=== PATIENT | male | born 1950 | race Two or more races ===

== ENCOUNTER 2024-12-31 11:22 | Emergency (ER) | payer MEDICAID, SELFPAY ==
[2024-12-31 11:23] VITALS: BMI 27.8
[2024-12-31 12:10] VITALS: BP 147/73; PULSE 82; RESP 18; TEMP 36.7; O2SAT 99
--- NOTE | 2024-12-31 12:13 | XR_ITS ---
Examination: Hand, left 3 views Technique: Hand AP, oblique, lateral 3 views Date and time of exam: December 31, 2024, 1230 hours INDICATIONS: Laceration to the hand today with third digit pain. FINDINGS: No acute fracture No dislocation No foreign body Soft tissue swelling about the third digit IMPRESSION: No acute fracture or dislocation
--- NOTE | 2024-12-31 13:32 | EDNOTE_ITS ---
Upper Extremity Injury RME/HPI General Chief Complaint: Extremity Injury, Upper Stated Complaint: finger laceration Time Seen by Provider: 12/31/24 11:42 Arrival date/time: 12/31/24 11:22 74-year-old male presents to the emergency department of complaint of laceration left middle finger Limitations: no limitations Related Data Previous Rx's ?Medication ?Instructions ?Recorded cephalexin 500 mg capsule 500 mg PO BID 10 days #20 ca ps 12/31/24 ibuprofen 600 mg tablet 600 mg PO Q6H #30 tabs 12/31 Allergies Allergy/AdvReac Type Severity Reaction Status Date / Time No Known Allergies Allergy Verified 12/31/24 11:25 Review of Systems Review of Systems Systems Reviewed: All systems reviewed, normal except as documented Constitutional Constitutional: Reports system reviewed and no additional complaints, except as documented, Denies fever(s) and Denies headache(s) Eyes Eyes: Reports system reviewed and no additional complaints, except as documented and Denies blurry vision ENT Ears, Nose, Mouth, and Throat: Reports system reviewed and no additional complaints, except as documented, Denies headache(s), Denies nasal congestion and Denies nasal discharge Cardiovascular Cardiovascular: Reports system reviewed and no additional complaints, except as documented, Denies chest pain and Denies dyspnea Respiratory Respiratory: Reports system reviewed and no additional complaints, except as documented, Denies chest congestion, Denies cough and Denies dyspnea Gastrointestinal Gastrointestinal: Reports system reviewed and no additional complaints, except as documented and Denies abdominal pain Integumentary/Breasts Skin/Breast: Reports system reviewed and no additional complaints, except as documented, Denies rash and Reports wounds (Laceration left middle finger) Neurologic Neurologic: Reports system reviewed and no additional complaints, except as documented, Reports as per HPI and Denies headache(s) Past Medical History Social History SMOKING STATUS: Never smoker ED Exam General Limitations: Present no limitations General appearance: Present alert and in no apparent distress Head Head exam: Present atraumatic Eye Eye exam: Present normal appearance, PERRL and EOMI ENT ENT exam: Present normal exam, normal oropharynx and mucous membranes moist Neck Neck exam: Present normal inspection, full ROM and trachea midline Chest Chest inspection: Present normal inspection and symmetric chest wall rise Respiratory Respiratory exam: Present normal lung sounds bilaterally Cardiovascular Cardiovascular exam: Present regular rate, normal rhythm and normal heart sounds Abdominal Exam Abdominal exam: Present soft and normal bowel sounds Extremities Exam Extremities exam: Present full ROM, tenderness and normal capillary refill; Absent joint swelling Expanded Upper Extremity Exam Hand L/R back image: 2 1. 3 cm no evidence of tendon or ligamentous injury full range of motion 2. 4 cm no evidence of tendon or ligamentous injury full range of motion Back Exam Back exam: Present normal inspection and full ROM Neurological Exam Neurological exam: Present alert, oriented X3 and CN II-XII intact Psychiatric Psychiatric exam: Present normal affect and normal mood Skin Skin exam: Present warm, dry and other (Laceration left hand) Course Quality Measures none Orders Category Date Time Status Set Up Suture Tray STAT Care 12/31/24 12:13 Completed Wound Care NOW Care 12/31/24 12:13 Completed XR hand comp LT min 3V Stat Exams 12/31/24 12:13 Completed Lidocaine 1% 20 ml [Xylocaine 1% 20 ML] Med 12/31/24 12:13 Discontinued 20 ml INFL X1 ONE TET,DIP/PERT AC (Adult)-Tdap [Boostrix Adult (Tdap) Med 12/31/24 12:13 Discontinued Vacc] 0.5 ml IMI .ONCE ONE Vital Signs Vital signs: Vital Signs Temperature 98.1 F 12/31/24 12:10 Pulse Rate 82 12/31/24 12:10 Respiratory Rate 18 12/31/24 12:10 Blood Pressure 147/73 H 12/31/24 12:10 Pulse Oximetry (%) 99 12/31/24 12:10 Oxygen Delivery Method Room Air 12/31/24 12:10 O2 saturation 99% room air with normal limits PROCEDURES: Laceration Laceration 1: Site: hand Side (If applicable): left Size (cm): 4 Description: linear Depth: simple, single layer Local Anesthetic: lidocaine 1% Amount of anesthesia used (mL): 10 Skin layer closed with: nylon Suture size (cm): 4-0 Number of sutures: 9 Technique: simple, interrupted Extremity Injury Patient data External records reviewed:: [facility] previous records Clinical information provided by:: patient Social determinants that could affect healthcare access:: none Patient has the following chronic illnesses:: See history How is presenting disease/condition affected by chronic disease/condition?: u neffected by Evaluation data The following diagnostics were reviewed and interpreted by me:: radiology exam(s) Lab and/or radiology exams considered but not ordered:: Radiology obtained Interpretation Summary: Reviewed by me Medications / Prescriptions Medications or Prescriptions considered but not ordered:: Given Medication administrations:: Medication Administration History Discontinued Medications Diphtheria/Tetanus/Acell Pertussis (Diphth,Pertuss(Acell),Tet Vac 0.5 Ml Syr- Adult) 0.5 ml IMi .ONCE ONE Stop: 12/31/24 12:14 Last Admin: 12/31/24 13:37 Dose: 0.5 ml Documented By: Lidocaine HCl (Lidocaine Hcl 1% 20 Ml Vial) 20 ml INFL X1 ONE Stop: 12/31/24 12:14 Last Admin: 12/31/24 13:37 Dose: 20 ml Documented By: Given Consultations Consultation(s) initiated? (list below): No Diagnosis Upper Extremity Injury Differential Diagnosis: other Most likely diagnosis given after review of the tests above:: Laceration Admission Indicated Admission indicated?: not indicated Admission Request Was there a request for admission?: No Disposition Plan Disposition Plan: Discharge Discharge Attestation Discharge Attestation: The patient and all family members were given an opportunity to ask questions and understood the discharge instructions. Discharge instructions specifically effects, indications for sooner follow up or return to the emergency department, and the expected course of current diagnosis. Patient condition: Stable Discharge Plan Plan Patient Disposition: HOME (Self Care) Discharge Disposition comment: Stable Prescriptions/Referrals Prescriptions/Med Rec: New cephalexin 500 mg capsule 500 mg PO BID 10 Days Qty: 20 0RF ibuprofen 600 mg tablet 600 mg PO Q6H Qty: 30 0RF Referrals: No Primary/Family,Physician [Primary Care Provider] - 01/01/25 Problem List Clinical Impression: Laceration of finger of left hand Patient/Caregiver Discharge Instructions Education Materials: ED Laceration: Skin Adhesive Additional Instructions: Please follow up with your primary care doctor in the next 24-48hrs for any worsening symptoms return here immediately Please have suture removed in 10 to 14 days Please take antibiotics as prescribed Print Language: Jamaican Stand Alone Forms: [employer] Award Info., Patient Portal Info Letter Vaccines Vaccines Given During Stay: TDaP PA/CONSULTING PSYCHIATRIST Supervising Physician PA/CONSULTING PSYCHIATRIST Supervising Physician: Dr. Marion
[2024-12-31] MEDS: DIPHTH,PERTUSS(ACELL),TET VAC 0.5 ML SYR- ADULT IMi (13:37)
[2024-12-31] MEDS: LIDOCAINE HCL 1% 20 ML VIAL INFL (13:37)
== END 2024-12-31 16:36 | disposition home or self-care (01) ==
PROVIDERS: Emergency Provider Nurse Practitioner Primary Care
DX: S61.213A Laceration without foreign body of left middle finger without damage to nail, initial encounter (principal); Z23 Encounter for immunization; W45.8XXA Other foreign body or object entering through skin, initial encounter
CPT/HCPCS: 12002; 73130; 90471; 90715; 99282; J3490

== ENCOUNTER 2025-02-25 06:15 | Inpatient (IN) | payer MEDICAID, SELFPAY ==
[2025-02-25] VITALS (13 sets, daily range): BP systolic 130–190; BP diastolic 74–109; PULSE 96–119; RESP 14–99; TEMP 36.9–37.9; O2SAT 97–100; BMI 26.5
--- NOTE | 2025-02-25 06:28 | EKG_ITS ---
[facility] (Formerly [facility]) Test Date: 2025-02-25 Pat Name: JOHAN BLEVINS Department: Room: - Gender: Male Live In Housekeeper: : 1950 Requested By: ED Temporary Provider Order Number: [id number] Reading MD: ED Temporary Provider Measurements Intervals [place] Rate: 99 P: 46 NM: 155 QRS: -1 QRSD: 73 T: 66 QT: 309 QTc: 396 Interpretive Statements SINUS RHYTHM NONSPECIFIC T-WAVE ABNORMALITY Compared to ECG 02/25/2025 06:36:17 Sinus tachycardia no longer present T-wave abnormality still present /store/S0/[id number].pdf
--- NOTE | 2025-02-25 06:28 | EKG_ITS ---
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
--- NOTE | 2025-02-25 06:28 | XR_ITS ---
EXAMINATION: PA lateral chest 2 views TECHNIQUE: Upright PA lateral chest 2 views Date and time: February 25, 2025, 0652 hours INDICATIONS: Upper chest pain today FINDINGS: Normal heart size Lungs are clear. Moderate thoracic spondylosis IMPRESSION: No active disease
--- NOTE | 2025-02-25 06:46 | XR_ITS ---
Examination: CTA chest with intravenous contrast 2-D reconstructions 3-D reconstructions, vascular Date and time of exam: February 25, 2025, 0910 hours INDICATIONS: Chest pain radiating to the back CTDI: vol (mGy) 12 DLP: (mGycm) 282 Technique: Multiple axial sections of the thorax have been obtained. 3 mm slice thickness, from below the hemidiaphragms to above the apices of the lungs. Mediastinal and lung density settings have been obtained. 2-D sagittal and coronal reconstructions. 3-D angiographic renderings, 3-D volume renderings, 3D post processing, vascular maximum intensity projections obtained. Contrast administered is 70 cc Isovue 300 intravenous Low dose protocols were performed. One or more of the following dose reduction techniques were used; automated exposure control, adjustment of the mA and/or KV according to patient size, use of iterative reconstruction technique. Findings: No thoracic aortic aneurysmal dilatation or dissection Pulmonary artery segments are not enlarged Positive for small pulmonary artery emboli in right lower lobe pulmonary artery branches, for instance axial image 87 and 8889 and small pulmonary artery emboli left lower lobe pulmonary artery branches, for instance axial image 92 No pneumonia or pulmonary edema Suspicious for 17 mm right lobe liver lesion image 156 No pancreatic mass Kidneys partially visualized no hydronephrosis IMPRESSION: Positive for small bilateral lower lobe pulmonary artery emboli
--- NOTE | 2025-02-25 06:48 | EDNOTE_ITS ---
ED Chest Pain RME/HPI General Chief Complaint: Chest Pain Stated Complaint: CHEST PAIN Time Seen by Provider: 02/25/25 06:31 Arrival date/time: 02/25/25 06:15 Limitations: no limitations RME / HPI MD complaint: chest pain RME / HPI narrative: 74-year-old male coming in for evaluation of chest pain that started yesterday evening to central chest radiating towards back and neck that has worsened overnight. This is accompanied by nausea, dry mouth feeling, sweating, mild shortness of breath. Denies any vomiting, diarrhea, fever, cough, other acute symptoms at this time. Does have past medical history significant for diabetes for which he takes insulin. Related Data Previous Rx's ?Medication ?Instructions ?Recorded ibuprofen 600 mg tablet 600 mg PO Q6H #30 tabs 12/31 Allergies Allergy/AdvReac Type Severity Reaction Status Date / Time No Known Allergies Allergy Verified 02/25/25 06:25 Review of Systems Review of Systems Systems Reviewed: All systems reviewed, normal except as documented Past Medical History Past Medical History CARDIAC: Positive Hypertension ENDOCRINE: Positive Diabetes Mellitus Type 2 Social History SMOKING STATUS: Never smoker Past Medical History Comments PMH COMMENT: Diabetes, insulin-dependent ED Exam Narrative Physical exam: Constitutional: Awake, alert, elderly, nontoxic, uncomfortable. HEENT: Normocephalic, atraumatic, extraocular movements intact. Neck: Supple CV: tachycardic rate and regular rhythm, no murmurs/rubs/gallops heard. Lungs: Clear to auscultation BL, no respiratory distress. Abd: Soft, nondistended, mild tenderness to epigastric region, no rebound or guarding noted. Neuro: AAOx3, no acute neuro deficit noted. Skin: Warm, dry, intact General Limitations: Present no limitations Course Course Course Narrative: Patient's chest x-ray is unremarkable. Does have significant leukocytosis of 24.4, procalcitonin is elevated at 5.03, lactate mildly elevated at 2.1, and magnesium low at 1.2. BUN/creat elevated at 25/1.8. Patient was tachycardic on arrival and was given initial liter of fluids. Additional IVFs ordered as well as IV abx, BCx's, and vbg. CTA is pending still. 1110h: CT angio is back revealing small bilateral pulmonary emboli. Dose of lovenox ordered. Spoke with team a regarding patient for admission. They will be down to see patient. Quality Measures none Orders Category Date Time Status Bedside Influenza A&B Antigen Test NOW Care 02/25/25 07:32 Completed Bedside STREP Test NOW Care 02/25/25 07:[address] Screening NOW Care 02/25/25 06:46 Active EKG (ED ONLY) *Do not use* NOW Care 02/25/25 06:28 Completed EKG (ED ONLY) *Do not use* NOW Care 02/25/25 06:28 Completed Insert IV NOW Care 02/25/25 06:[address] angio chest Stat Exams 02/25/25 06:46 Completed EKG (ED Only) Stat Exams 02/25/25 06:28 Draft EKG (ED Only) Stat Exams 02/25/25 06:28 Ordered XR chest 2V Stat Exams 02/25/25 06:28 Completed B-Type Natriuretic Peptide Stat Lab 02/25/25 06:51 Completed Blood Culture (Lab) Stat Lab 02/25/25 09:09 Received CBC Stat Lab 02/25/25 06:51 Completed Comprehensive Metabolic Panel Stat Lab 02/25/25 06:51 Completed Influenza A & B Rapid Panel Stat Lab 02/25/25 07:32 Ordered Lactate (Lactic Acid) Stat Lab 02/25/25 06:51 Completed Lactic Acid, 3 HR Stat Lab 02/25/25 10:39 Completed Magnesium Stat Lab 02/25/25 06:51 Completed Partial Thromboplastin Time Stat Lab 02/25/25 06:51 Completed Procalcitonin Stat Lab 02/25/25 06:51 Completed Prothrombin Time with INR Stat Lab 02/25/25 06:51 Completed Strep A Rapid Stat Lab 02/25/25 07:32 Ordered Troponin I Stat Lab 02/25/25 06:51 Completed Urinalysis, C/S if Indicated Stat Lab 02/25/25 11:11 Ordered VBG [Venous Blood Gas] Stat Lab 02/25/25 09:17 Completed Acetaminophen Ivpb [Ofirmev Inj] Med 02/25/25 09:46 Discontinued 1,000 mg in 100 ml IV NOW Azithromycin Inj [Zithromax Inj] 500 mg Med 02/25/25 08:20 Discontinued Sodium Chloride 0.9% 250 ml [Ns] 250 ml IV NOW Enoxaparin [Lovenox] Med 02/25/25 11:12 Discontinued 68 mg SC NOW ONE Magnesium Sulfate 2 GM Ivpb [Magnesium Sulfate Ivpb] Med 02/25/25 08:24 Discontinued 2 gm in 50 ml IV X1 Ringers Lactated 1000 ml [Lactated Ringers] 1,000 ml Med 02/25/25 06:47 Discontinued IV 999 mls/hr Ringers Lactated 1000 ml [Lactated Ringers] 1,000 ml Med 02/25/25 08:19 Discontinued IV 999 mls/hr cefTRIAXone/D5w 1gm IV premix [Rocephin/D5w 1gm IV Med 02/25/25 08:19 Discontinued premix] 1 gm in 50 ml IV X1 Vital Signs Vital signs: Vital Signs Temperature 99.6 F 02/25/25 06:40 Pulse Rate 119 H 02/25/25 06:40 Respiratory Rate 19 02/25/25 06:40 Blood Pressure 130/74 02/25/25 06:40 Pulse Oximetry (%) 98 02/25/25 06:40 Oxygen Delivery Method Room Air 02/25/25 06:40 Pulse ox is 98% on room air which is adequate. Chest Pain MDM Narrative MDM Narrative:: 74-year-old male who came in for evaluation of chest pain that onset yesterday with nausea and mild shortness of breath. Was noted to be tachycardic on arrival. Workup ordered including labs and imaging including CT angio to rule out PE. Was noted to have significant abnormalities on labs including white blood cell count of 24, procalcitonin of 5, and CT angio revealing bilateral sm all pulmonary emboli. Was treated empirically for sepsis given the tachycardia, leukocytosis, and elevated lactate. Received IV fluids as well as IV antibiotics and blood cultures were drawn. Spoke with hospitalist team a regarding patient for admission. Patient data External records reviewed:: [facility] previous records Clinical information provided by:: patient Social determinants that could affect healthcare access:: none Patient has the following chronic illnesses:: Diabetes, hypertension How is presenting disease/condition affected by chronic disease/condition?: uneffected by Evaluation data The following diagnostics were reviewed and interpreted by me:: lab results and radiology exam(s) Lab and/or radiology exams considered but not ordered:: none Interpretation Summary: as above Medications / Prescriptions Medications or Prescriptions considered but not ordered:: none Medication administrations:: Medication Administration History Discontinued Medications Enoxaparin Sodium (Enoxaparin Sod Inj 100 Mg/Ml Syringe) 68 mg 1 mg/kg (68 mg) SC NOW ONE Stop: 02/25/25 11:13 Lactated Ringer's (Lactated Ringers) 1,000 mls @ 999 mls/hr IV .Q1H1M ONE Stop: 02/25/25 07:47 Last Infusion: 02/25/25 08:21 Dose: Infused Documented By: Admin: 02/25/25 06:55 Dose: 999 mls/hr Documented By: SATINDER Lactated Ringer's (Lactated Ringers) 1,000 mls @ 999 mls/hr IV .Q1H1M ONE Stop: 02/25/25 09:19 Last Infusion: 02/25/25 10:58 Dose: Infused Documented By: Admin: 02/25/25 09:26 Dose: 999 mls/hr Documented By: GM Ceftriaxone Sodium/Dextrose (Rocephin/D5w 1gm Iv Premix) 1 gm in 50 mls @ 100 mls/hr IV X1 ONE Stop: 02/25/25 08:48 Last Infusion: 02/25/25 09:55 Dose: Infused Documented By: Admin: 02/25/25 09:24 Dose: 100 mls/hr Documented By: SUE Azithromycin 500 mg/ Sodium (Chloride) 250 mls @ 250 mls/hr IV NOW ONE Stop: 02/25/25 09:19 Last Admin: 02/25/25 10:05 Dose: 250 mls/hr Documented By: DOTTY Magnesium Sulfate (Magnesium Sulfate Ivpb) 2 gm in 50 mls @ 25 mls/hr IV X1 ONE Stop: 02/25/25 10:23 Last Admin: 02/25/25 09:25 Dose: 25 mls/hr Documented By: GM Acetaminophen (Ofirmev Inj) 1,000 mg in 100 mls @ 250 mls/hr IV NOW ONE Stop: 02/25/25 10:09 Last Infusion: 02/25/25 10:35 Dose: Infused Documented By: Admin: 02/25/25 10:08 Dose: 250 mls/hr Documented By: DOTTY See above Consultations Consultation(s) initiated? (list below): Yes Consultation #1 (Physician, Specialty, Details): See MDM Diagnosis Most likely diagnosis given after review of the tests above:: Bilateral pulmonary emboli, leukocytosis, elevated lactate Admission Indicated Admission indicated?: indicated Admission Request Was there a request for admission?: Yes Admission Attestation Admission request attestation: Discussed case with [] from Hospitalist service regarding admission. Discussed patients ED course, exam findings, labs, and radiology results. The Hospitalist [agrees,declines] to accept the patient for admission. Disposition Plan Disposition Plan: Admit Critical Care Time Critical Care Time Critical Care Time: Yes Total Critical Care Time (min.): 35 Attestation: The high probability of a clinically significant, sudden or life threatening deterioration required my full and direct attention, intervention and personal management. The aggregate critical care time was [35] minutes. This time is in addition to time spent performing reported procedures but includes the following: [x] Data Review and interpretation [x] Patient assessment and monitoring of vital signs [x] Documentation [x] Medication orders and management Discharge Plan Plan Patient Disposition: Admit Acute Care w/in Hospital Prescriptions/Referrals Prescriptions/Med Rec: No Action ibuprofen 600 mg tablet 600 mg PO Q6H Qty: 30 0RF Referrals: No Primary/Family,Physician [Primary Care Provider] - In 1 week Problem List Clinical Impression: Bilateral pulmonary embolism, Leukocytosis, Elevated lactic acid level Patient/Caregiver Discharge Instructions Print Language: Malaysian Stand Alone Forms: [employer] Award Info., Patient Portal Info Letter
[2025-02-25] MEDS: RINGERS LACTATED 1000 ML 1,000 ML 999 ML IV ×2 (06:55→09:26)
[2025-02-25 07:14] LABS: Lactate (Lactic Acid) 2.1 mMol/L (0.4-2.0)
[2025-02-25 07:28] LABS: Basophils # (Auto) 0.1 Thou/mm3 (0.0-0.2); Basophils % (Auto) 0 % (0-2.5); Eosinophils # (Auto) 0.0 Thou/mm3 (0.0-0.5); Eosinophils % (Auto) 0 % (0-10); Hematocrit 36.2 % (41.0-53.0); Hemoglobin 12.4 g/dL (13.5-16.0); Immature Granulocytes Auto 0.18 Thou/mm3 (0.00-0.00); Lymphocytes # (Auto) 0.3 Thou/mm3 (1.0-4.8); Lymphocytes % (Auto) 1 % (10-50); Mean Corpuscular HGB Conc 34.3 g/dl (31.0-37.0); Mean Corpuscular Hemoglobin 30.2 pg (25.0-35.0); Mean Corpuscular Volume 88 fL (80-100); Monocytes # (Auto) 1.5 Thou/mm3 (0.0-0.8); Monocytes % (Auto) 6 % (0-12); Neutrophils # (Auto) 22.4 Thou/mm3 (1.8-7.7); Neutrophils % (Auto) 92 % (37-80); Nucleated Red Blood Cell # 0.00 Thou/mm3 (0.00-0.00); Nucleated Red Blood Cell % 0 /100 WBC (0); Platelet Count 246 Thou/mm3 (140-440); RDW Standard Deviation 39.2 fL (35.1-43.9); Red Blood Count 4.11 Miln/mm3 (4.50-5.90); White Blood Count 24.4 Thou/mm3 (3.8-10.6)
[2025-02-25 07:34] LABS: INR 1.1 (0.9-1.3); Partial Thromboplastin Time 26.7 Seconds (22.0-36.0); Prothrombin Time 11.4 Seconds (9.0-12.2)
[2025-02-25 07:52] LABS: Alanine Aminotransferase 15 U/L (10-49); Albumin, Serum 4.6 gm/dL (3.4-4.8); Albumin/Globulin Ratio 1.4 (1.2-2.2); Alkaline Phosphatase 113 U/L (46-116); Anion Gap 12 (7-16); Aspartate Amino Transferase 16 U/L (0-34); BUN/Creatinine Ratio 14 Ratio (12-20); Bilirubin,Total 0.6 mg/dL (0.3-1.2); Blood Urea Nitrogen 25 mg/dL (9-23); Calcium 9.2 mg/dL (8.3-10.6); Calcium (Corrected) 9.2 mg/dL (8.5-10.1); Carbon Dioxide 22.8 mMol/L (20.0-31.0); Chloride 101 mMol/L (98-107); Creatinine (Component) 1.8 mg/dL (0.6-1.3); Estimated Creatinine Clearance 28.1 mL/min (>60); Globulin 3.4 gm/dL (2.3-3.5); Glucose 277 mg/dL (74-106); Magnesium 1.2 mg/dL (1.6-2.6); Osmolality,Calculated 286 (275-295); Potassium 3.9 mMol/L (3.4-5.1); Procalcitonin 5.03 ng/ml (0.0-0.49); Sodium 136 mMol/L (136-145); Total Protein 8.0 gm/dL (5.7-8.2); Troponin I 0.025 ng/mL (0.0-0.045); eGFR 39 See Note
[2025-02-25 08:04] LABS: B-Type Natriuretic Peptide 68 pg/mL (0-100)
--- NOTE | 2025-02-25 08:31 | PC.NURSE ---
UNABLE TO START IV ANTIBIOTICS DUE TO PT BEING AT CT SCAN AT THIS TIME.
[2025-02-25] MEDS: cefTRIAXone/D5w 1gm IV premix 1 GM/50 ML BAG IV (09:24)
[2025-02-25] MEDS: Magnesium Sulfate 2 GM Ivpb 2 GM/50 ML BAG IV (09:25)
[2025-02-25 09:29] LABS: Base Excess, Venous 1 (-3-3); O2 Saturation, Venous 40 % (96-97); PCO2, Venous 47 mmHg (36-56); PO2, Venous 23 mmHg (15-58); pH, Venous 7.36 (7.33-7.66)
[2025-02-25] MEDS: AZITHROMYCIN INJ 500 MG in SODIUM CHLORIDE 0.9% 250 ML 250 ML 250 MG IV (10:05)
[2025-02-25 10:08] LABS: Reflex Lactate? Y
[2025-02-25] MEDS: ACETAMINOPHEN IVPB 1,000 MG/100 ML VIAL 250 MG IV (10:08)
[2025-02-25 10:47] LABS: Lactic Acid, 3 HR 2.0 mMol/L (0.4-2.0)
[2025-02-25 11:41] LABS: Collection Type, Urine Clean Catch; Squamous Epithelial Cell,Urine 0 /hpf (0-5)
[2025-02-25 11:47] LABS: Bilirubin,Urine Negative (Negative); Blood,Urine Trace (Negative); Clarity,Urine Clear (Clear/Hazy); Color,Urine Colorless (Lt Yel-Yel); Culture Indicated,Urine Not Indicated; Glucose, Urine 4+ (Negative); Ketones,Urine Negative (Negative); Leukocyte Esterase,Urine Negative (Negative); Nitrite,Urine Negative (Negative); PH,Urine 7.5 (5.0-7.0); Protein,Urine Trace (Neg - Trace); RBC,Urine 3 /hpf (0-3); Specific Gravity,Urine 1.019 (1.001-1.035); Urobilinogen,Urine Negative mg/dL (0.0-1.0); WBC,Urine < 1 /hpf (0-5)
--- NOTE | 2025-02-25 12:04 | XR_ITS ---
Examination: Venous duplex lower extremity sonogram, bilateral. Date and time of exam: February 25, 2025, 1219 hours INDICATIONS: Positive for bilateral pulmonary emboli on CT examination today, chest pain shortness of breath Technique: Multiple sonographic images of the deep venous system have been obtained. B-mode/2-D grayscale imaging of vascular structures and Doppler spectral analysis (waveforms) and color performed Both legs are examined. Findings: Deep venous systems do not demonstrate abnormal echogenicity. All visualized deep veins exhibit compressibility. All visualized deep veins exhibit augmentation. Impression: Negative for deep vein thrombosis
--- NOTE | 2025-02-25 12:07 | ESHP_ITS ---
<Statement entered by Tucker Davis MD - 02/25/25 16:10> Patient was examined and case was reviewed with team including attending physician. Note reviewed, I agree with most of its contents and agree with the patient's care as documented by Dr. Roach 74 y/o M with PMhx of Hypertension, hypothyroidism, diabetes who presented to the ED due to chest pain. Patient states he had crushing chest pain radiating to the neck and behind the shoulder blades. He also endorsed nausea but no vomiting, as well as diaphoresis. EKG showed sinus rhythm with no acute ST changes and negative troponins x2. CTA of chest was done which showed bilateral small pulmonary embolisms, negative for acute dissection and thoracic aneurysm. US of B/L LE ordered to r/o DVT and abdominal US ordered to r/o aneurysm.He was started on heparin drip and can be later transitioned to PO eliquis 10mg BID for 7 days and then 5mg BID for 6 months or as per Cardiology recommendations, echo also ordered. Patient was also found to have significant leukocytosis CT with no contrast abdomen ordered, Cultures ordered as well, will continue Abx therapy at this time as well. Case discussed with my attending Dr. Coral Davis MD PGY-2 Documentation for date of: 02/25/25 HPI History of Present Illness Chief complaint: Chest pain History of present illness: Mr. Duncan is a 74 years old niuean spekaing male with history of hypothyroidism, hypertension, and diabetes type 2 who presented to ER on 02/25/25 for chest pain with radiation to the back and neck. Patient stated on the morning of 02/23/25, he woke up with constant, pressure like, chest pain that was centrally located with radiation to his back and neck. This pain was made worse with deep inspiration. He had never experienced similar episode before. He informed his chest pain to his son, who took him to a clinic for check up the day after on 02/24/25. He reported he was given some medications from the clinic with minimal improvement of his chest pain, who prompted him to seek care in the ER today on 02/25/25. He denied any fever, nausea, chill, vomiting, cough, dysuria. He does not take any hormone pill. No recent long travel or history of TIA/stroke, or clot in the lung or legs. No unilateral leg swelling or hemoptysis. He was admitted for chest pain. ED Course In the ED, Temp 100.3F rectal. HR 106. RR 14. BP 176/97. 100% RA. Lab significant for WBC 24.4 with neutrophil predominance, Hgb 12.4. Vbg 7.36/47/23. Na 136, K 3.9, BUN 25, Cr 1.8, Glucose 277, A1c 9.4. Lactate 2.1. Mag 1.2. CXR unremarkable. EKG showed sinus tach at rate of 116. No acute ST abnormalities. C TA chest Positive for small bilateral lower lobe pulmonary artery emboli. Venous doppler negative for DVT. ROS * Constitutional: a/o x 3, denies fever/chills. * GI: Denies nausea, vomiting. * CV:+chest pain, denies palpitations. * Resp: +SOB, denies cough * : Denies dysuria, CVA tenderness, suprapubic tenderness. * Neuro: Denies dizziness, no focal deficits. Past Medical History * Hypertension * Diabetes * Hypothyroidism Social History * Lives at home, independent baseline. * Denies any kind of alcohol, smoking, or drug abuse. Surgical History * Denies Allergies * NKDA Home Meds * LOSARTAN POTASSIUM 25 MG TAB * JANUMET 50-500 MG TABLET * LEVOTHYROXINE 50 MCG TABLET * LANTUS SOLOSTAR 100 UNIT/ML * HYDROCHLOROTHIAZIDE 25 MG TAB * AMLODIPINE BESYLATE 5 MG TAB Exam Vital Signs Temp Pulse Resp BP Pulse Ox O2 Del Method 98.8 F 106 H 14 176/97 H 100 Room Air 02/25/25 09:21 02/25/25 09:21 02/25/25 09:21 02/25/25 09:21 02/25/25 09:21 02/25/25 09:21 Narrative Exam General: Alert, oriented, in no acute distress. HEENT: Normocephalic, atraumatic. Neck: Supple, no JVD. Cardiovascular: Tachycardic. Sinus rhythm. No murmurs, rubs, or gallops. Respiratory: Clear to auscultation bilaterally. No wheezes, rales, or rhonchi. Normal respiratory effort. Abdomen: Soft, nontender, nondistended. No masses or organomegaly. Musculoskeletal: Full range of motion in all extremities. No joint swelling, tenderness, or deformities. Skin: Warm, dry, intact. No rashes or lesions. Neurological: Alert, oriented x 3. Psychiatric: Calm, cooperative, appropriate mood and affect. Results: Labs 02/26/25 04:48 02/26/25 04:48 Labs: Short CBC 02/25/25 Range/Units 06:51 WBC 24.4 H (3.8-10.6) Thou/mm3 Hgb 12.4 L (13.5-16.0) g/dL Hct 36.2 L (41.0-53.0) % Plt Count 246 (140-440) Thou/mm3 BMP 02/25/25 06:51 Sodium 136 Potassium 3.9 Chloride 101 Carbon Dioxide 22.8 BUN 25 H Creatinine 1.8 H Glucose 277 H Calcium 9.2 Cardiac Enzymes 02/25/25 Range/Units 06:51 Troponin I 0.025 (0.0-0.045) ng/mL Liver Function 02/25/25 Range/Units 06:51 Total Bilirubin 0.6 (0.3-1.2) mg/dL AST 16 (0-34) U/L ALT 15 (10-49) U/L Alkaline Phosphatase 113 (46-116) U/L Albumin 4.6 (3.4-4.8) gm/dL ABG Interpretation ABG results: 02/25/25 09:17 VBG pH 7.36 VBG pCO2 47 VBG pO2 23 VBG Base Excess 1 Quality Measures Quality Measures none Advance care planning discussed with:: patient Medications Home Medications and Allergies Home Medications ?Medication ?Instructions ?Recorded ?Confirmed ?Type amlodipine 5 mg tablet 5 mg PO QDAY 02/25/25 History hydrochlorothiazide 25 mg tablet 25 mg PO DAILY 02/25/25 History insulin glargine 100 unit/mL (3 20 unit subcut HS 02/0802/25/25 History mL) subcutaneous pen (Lantus Solostar U-100 Insulin) levothyroxine 50 mcg tablet 50 mcg PO DAILY 02/25/25 1 04/28/24 History losartan 25 mg tablet 25 mg PO DAILY 02/25/2502/08 History sitagliptin phosphate 50 1 tab PO DAILY UD 02/25/25 1 04/28/24 History mg-metformin 500 mg tablet (Janumet) Allergies Allergy/AdvReac Type Severity Reaction Status Date / Time No Known Allergies Allergy Verified 02/25/25 06:25 Visit Medications Heparin Sodium/Dextrose (Heparin In D5w Ivpb) 25,000 unit in 250 mls @ 12.247 mls/hr IV .[id number] LEATHA; Protocol Stop: 03/11/25 11:59 Discontinued Medications Enoxaparin Sodium (Enoxaparin Sod Inj 100 Mg/Ml Syringe) 68 mg 1 mg/kg (68 mg) SC NOW ONE Stop: 02/25/25 11:13 Heparin Sodium (Porcine) (Heparin Sod Inj 5000 Unit/Ml Vial) 5,450 unit 80 unit/kg (5450 unit) IV X1 ONE; Protocol Stop: 02/25/25 11:57 Lactated Ringer's (Lactated Ringers) 1,000 mls @ 999 mls/hr IV .Q1H1M ONE Stop: 02/25/25 07:47 Last Infusion: 02/25/25 08:21 Dose: Infused Lactated Ringer's (Lactated Ringers) 1,000 mls @ 999 mls/hr IV .Q1H1M ONE Stop: 02/25/25 09:19 Last Infusion: 02/25/25 10:58 Dose: Infused Ceftriaxone Sodium/Dextrose (Rocephin/D5w 1gm Iv Premix) 1 gm in 50 mls @ 100 mls/hr IV X1 ONE Stop: 02/25/25 08:48 Last Infusion: 02/25/25 09:55 Dose: Infused Azithromycin 500 mg/ Sodium (Chloride) 250 mls @ 250 mls/hr IV NOW ONE Stop: 02/25/25 09:19 Last Infusion: 02/25/25 11:44 Dose: Infused Magnesium Sulfate (Magnesium Sulfate Ivpb) 2 gm in 50 mls @ 25 mls/hr IV X1 ONE Stop: 02/25/25 10:23 Last Infusion: 02/25/25 11:44 Dose: Infused Acetaminophen (Ofirmev Inj) 1,000 mg in 100 mls @ 250 mls/hr IV NOW ONE Stop: 02/25/25 10:09 Last Infusion: 02/25/25 10:35 Dose: Infused Assessment & Plan Plan Mr. Duncan is a 74 years old niuean spekaing male with history of hypothyroidism, hypertension, and diabetes type 2 who presented to ER on 02/25/25 for chest pain with radiation to the back and neck. He was admitted for pulmonary embolism and chest pain. #Chest pain #Pulmonary embolism, small, bilateral lower lobes #Back pain #Hypertension urgency #Sinus tachycardia Initial Troponin 0.025. EKG sinus tachy without ST abnormalities. CTA revealed bilateral small pulmonary embolic at lower lobes. US doppler LE negative for DVT. Pulmonary embolism severity index : 86 points Class III, Intermediate Risk: 3.2- 7.1% 30-day mortality in this group. - Repeat trop 0.024 - Repeat EKG NSR with rate of 99, no ST abnormalities - Heparin gtt. - labetalol 10mg x 1 (02/25/25) - lidocaine patch x 1 (02/25/25) #Leukocytosis #SIRS 2/4 #Possible UTI Initial WBC 24.4. Rectal temp 100.3F. Tachycardic. Unknown source - UA negative - CXR unremarkable - Abdomen US : Mild to moderate left hydronephrosis with bilateral renal scar formation. - Will start empiric antibiotics for now (Zosyn + Vanco) #JULIO #Left hydronephrosis, mild to moderate Cr 1.8. BUN 25 - Hold home lorsartan for now. - monitor urine output - daily labs, monitor chemistry - renal dose med, avoid nephrotoxin - no recent contrast or offending mediations #Hypertension - chronic medical problem - Continue home amlodipine 5mg PO QD, HCTZ 25mg PO QD. - hold Losartan 25mg PO QD for now, started on metoprolol succinate 25mg PO #Diabetes type 2 A1c 9.4 - chronic medical problem - on ISS. - hypoglycemic protocol in place. - low carb diet #Hypothyroidism - chronic medical problem - Continue home levothyroxine 50 mcg PO QD. Health maintenance Dispo: Pending resolution of PE, leukocytosis DVT prophylaxis: HEPARIN gtt GI prophylaxis: N/A Antibiotics: Zosyn and vanco Bowel Regimen: N/A Diet: CHO consistent low Lines: Peripheral IV Code status: Full code Case discussed with my senior resident Dr. Lockett Case discussed with my attending Dr. Coral Roach, DO PGY 1 Attending Provider Attestation/Addendum I have examined the patient, reviewed labs and imaging findings, discussed the case with the resident(s), and reviewed entered orders. I agree with the plan of care as outlined in this note, with these additional summaries/recommendations: After examination of the patient and review of the clinical data, I feel that this patient needs admission to the hospital for further treatment and evaluation. Dr. Coral MD
[2025-02-25] MEDS: HEPARIN SOD INJ 5000 UNIT/ML VIAL 5450 UNIT IV (12:31)
[2025-02-25] MEDS: Heparin/D5w 25K 250 ML Ivpb 25,000 UNIT/250 ML BAG 12.247 UNIT IV (12:31)
--- NOTE | 2025-02-25 13:14 | XR_ITS ---
Examination: Abdomen sonogram, complete Date and time of exam: February 25, 2025, 1323 hours INDICATIONS: Abdominal back pain beginning today. Technique: Multiple real-time grayscale transabdominal sonographic images of the abdomen have been obtained. Findings: No diagnostic visualization gallbladder Common bile duct 0.5 cm Pancreas obscured by bowel gas Mid and distal aorta not enlarged Liver 15.3 cm fatty infiltration Normal hepatopetal portal venous flow Patent IVC Right kidney 8.7 cm renal cortex 1.2 cm Left kidney 9.3 cm renal cortex 1.4 cm Moderate renal scarring Mild to moderate left hydronephrosis Spleen 9.6 cm IMPRESSION: No diagnostic visualization gallbladder Normal common bile duct 0.5 cm Small kidneys with bilateral renal cortical thinning Moderate bilateral renal scar formation Mild to moderate left hydronephrosis
--- NOTE | 2025-02-25 13:18 | PC.NURSE ---
LATE NOTE: CALLED DR. ROONEY TO NOTIFED HIM THAT THIS PT STARTED TO HAVE A SUDDEN ONSET OF MID BACK PAIN AND CHEST PAIN, DR. ROONEY ORDER A EKG AND CAME DOWN AND RE-EVALUATED THE PT AND READ THE REPEAT EKG. NEW ORDERS GIVEN FOR PAIN MEDS GIVEN
[2025-02-25 13:39] LABS: Glucose Estimated Average 223 mg/dL (80-131); Hemoglobin A1C 9.4 % Hgb (4.8-6.0)
[2025-02-25 13:42] LABS: Troponin I 0.024 ng/mL (0.0-0.045)
--- NOTE | 2025-02-25 13:43 | XR_ITS ---
Examination: CT abdomen without intravenous contrast. Coronal 2-D reconstructions. Sagittal 2-D reconstructions. Date and time of exam: February 25, 2025, 2111 hours INDICATIONS: Onset abdominal pain today CTDI: vol (mGy): 12.5 DLP: (mGycm): 506 Technique: Axial images of the abdomen have been obtained, 3 mm slice thickness, without intravenous contrast 2-D sagittal coronal reconstructions Low dose protocols were performed. One or more of the following dose reduction techniques were used; automated exposure control, adjustment of the mA and/or KV according to patient size, use of iterative reconstruction technique. Findings: No focal liver or splenic lesion Absent gallbladder No extrahepatic biliary tract dilatation No pancreatic mass No adrenal mass Perinephric stranding Normal appendix No renal or ureteral calculi 14 mm fat-containing umbilical hernia No bowel obstruction visualized urinary bladder intact Moderate degenerative disc disease L4-L5, L5-S1 IMPRESSION: Perinephric stranding, consider urinary tract infection
[2025-02-25] MEDS: LIDOCAINE 5% 1 PATCH TOP (13:49)
--- NOTE | 2025-02-25 15:56 | ESCONSULT_ITS ---
<Statement entered by Manas Knight MD - 02/25/25 23:34> I personally examined this patient with resident physician Dr. Marti PGY2 after extensive history in [place] through [employer] the patient clearly did not present with any signs or symptoms of pulmonary embolism he had fairly severe chest pain mostly costochondritis significant chest wall tenderness is present and neck pain as well patient appears to have urinary tract infection with hydronephrosis severe leukocytosis 24,000 white count Pro-Rj elevated 5 lactic acid elevated and low magnesium levels patient does not have any shortness of breath saturating 98% on room air. CT scan of the chest ordered possibly for dissection of the aorta because of back pain. Report shows small pulmonary emboli I reviewed the CT scan of the chest myself what ever the report shows I do not see significant findings urine every day distalmost vessels possibly false positive finding of pulmonary emboli I do not agree with the radiologist report patient does not have pulmonary embolism either clinically or radiologically. I am recommending patient to have no IV heparin Aggressive management urinary tract infection sepsis UTI with hydronephrosis possible pyelonephritis aggressive IV antibiotic therapy no anticoagulation needed other than subcu heparin to prevent DVT. Other findings include negative DVT scan no other findings to suggest pulmonary embolism. Discussed with resident team recommended to stop heparin discussed with radiologist to possibly amend the report. No need for further workup at present will get a cardiac echo for assessment of left ventricle wall motion. If there are any changes overnight I will be glad to reevaluate the patient in the morning but clinically there is no evidence of pulmonary embolism at this point highly unlikely low probability for pulmonary embolism based on clinical findings and even CT imaging at the most borderline. HPI Data of Consult Requesting Physician: Olegario Moncada MD Admitting Provider: Olegario Moncada MD Attending Provider: Olegario Moncada MD Primary Care Provider: Physician No Primary/Family Consult Narrative Reason for consult: PE History of present illness: Patient is 74 yr male with PMH of hypothyroidism, hypertension, type 2 diabetes insulin-dependent presenting to ED chief complaint of chest pain. Patient stated that the pain began yesterday morning causing him to wake up from sleep. Initially started on the left but now feels like it is radiating to the right as well. Denies any shortness of breath, diaphoresis, palpitations, abdominal pain, headache, dizziness. He denies experiencing this pain in the past. Occasionally works in the [employer] and when physically active, he does not endorse any chest pain or shortness of breath. He denies any recent travel or history of cancer, no smoking. Unable to recall the medications he is taking at this time. Patient's chest x-ray is unremarkable. Does have significant leukocytosis of 24.4, procalcitonin is elevated at 5.03, lactate mildly elevated at 2.1, and magnesium low at 1.2. BUN/creat elevated at 25/1.8. Patient was tachycardic on arrival and was given initial liter of fluids. CT angio was read as small bilateral pulmonary emboli. However self interpretation did not correlate with these findings of PE. Patient was started on [id number] mg x 1 and started on heparin drip for PE. He remains hemodynamically stable no evidence of right ventricle strain on CT imaging. Blood pressure 130/74 on admission. LE u/s was negative for DVT. His sPESI score 0, BNP normal, troponins were negative. He denies any hx of smoking or drinking. Cannot recall pertinent family hx. Medication reconcilitation pending. CT imaging was reviewed at this time there is low suspicion for PE. Likely symptoms of atypical chest pain due to costochondritis as pain worsens with movement. Elevated creatinine and hydronephrosis indicating possible obstructive uropathy. cc:: cc: Olegario Moncada MD Review of Systems Review of Systems Systems Reviewed: All systems reviewed, normal except as documented Exam Vital Signs Temp Pulse Resp BP Pulse Ox O2 Del Method 98.6 F 96 15 147/86 H 100 Room Air 02/25/25 12:52 02/25/25 12:52 02/25/25 12:52 02/25/25 12:52 02/25/25 12:52 02/25/25 12:52 Narrative Exam General: Alert and oriented x3. No acute distress, cooperative HEENT: NCAT, No JVD noted. Mucosa moist. Pupils are equal and reactive to light bilaterally Cardiovascular: Normal S1 and S2. Regular rate and rhythm. Respiratory: Lungs are clear to auscultation bilaterally. No wheezing or crackles heard. Abdomen: Soft, tender, not distended, normal bowel sounds. Skin: Warm to touch, dry, no rashes noted Musculoskeletal: No gross injuries. Able to move all 4 extremities. No pitting edema Neuro: Alert and oriented x3. No focal neuro deficits. Psych: Normal affect and mood Results Labs 02/25/25 06:51 02/25/25 06:51 Labs: Short CBC 02/25/25 Range/Units 06:51 WBC 24.4 H (3.8-10.6) Thou/mm3 Hgb 12.4 L (13.5-16.0) g/dL Hct 36.2 L (41.0-53.0) % Plt Count 246 (140-440) Thou/mm3 BMP 02/25/25 06:51 Sodium 136 Potassium 3.9 Chloride 101 Carbon Dioxide 22.8 BUN 25 H Creatinine 1.8 H Glucose 277 H Calcium 9.2 Cardiac Enzymes 02/25/25 02/25/25 Range/Units 06:51 12:47 Troponin I 0.025 0.024 (0.0-0.045) ng/mL Liver Function 02/25/25 Range/Units 06:51 Total Bilirubin 0.6 (0.3-1.2) mg/dL AST 16 (0-34) U/L ALT 15 (10-49) U/L Alkaline Phosphatase 113 (46-116) U/L Albumin 4.6 (3.4-4.8) gm/dL Urine 02/25/25 Range/Units 11:31 Urine Color Colorless A (Lt Yel-Yel) Urine Clarity Clear (Clear/Hazy) Urine pH 7.5 H (5.0-7.0) Ur Specific [place] 1.019 (1.001-1.035) Urine Protein Trace (Neg - Trace) Urine Glucose (UA) 4+ A (Negative) ABG Interpretation ABG results: 02/25/25 09:17 VBG pH 7.36 VBG pCO2 47 VBG pO2 23 VBG Base Excess 1 Quality Measures Quality Measures none Advance care planning discussed with:: patient Medications Home Medications and Allergies Home Medications ?Medication ?Instructions ?Recorded ?Confirmed ?Type amlodipine 5 mg tablet 5 mg PO QDAY 02/25/25 History hydrochlorothiazide 25 mg tablet 25 mg PO DAILY 02/25/25 History insulin glargine 100 unit/mL (3 20 unit subcut HS 02/0802/25/25 History mL) subcutaneous pen (Lantus Solostar U-100 Insulin) levothyroxine 50 mcg tablet 50 mcg PO DAILY 02/25/25 1 04/28/24 History losartan 25 mg tablet 25 mg PO DAILY 02/25/2502/08 History sitagliptin phosphate 50 1 tab PO DAILY UD 02/25/25 1 04/28/24 History mg-metformin 500 mg tablet (Janumeregina) Allergies Allergy/AdvReac Type Severity Reaction Status Date / Time No Known Allergies Allergy Verified 02/25/25 06:25 Visit Medications Dextrose (Dextrose 50%-Water Inj 50 Ml Syringe) 25 ml IV Q15MIN PRN PRN Reason: BG 50-70 responsive npo pt Stop: 03/27/25 12:10 Dextrose (Dextrose 50%-Water Inj 50 Ml Syringe) 50 ml IV Q15MIN PRN PRN Reason: BG <50 OR BG <70 & pt unresponsive Stop: 03/27/25 12:10 Glucagon (Glucagon Inj 1 Mg Vial) 1 mg IM Q15MIN PRN PRN Reason: BG <70, and no IV access Heparin Sodium/Dextrose (Heparin In D5w Ivpb) 25,000 unit in 250 mls @ 12.247 mls/hr IV .[id number] [facility]; Protocol Stop: 03/11/25 11:59 Last Admin: 02/25/25 12:31 Dose: 18 units/kg/hr, 12.247 mls/hr Insulin Human Lispro (Insulin Lispro (Admelog) 1 Unit/0.01 Ml Unit) 0 unit SC [facility]; Protocol Stop: 03/27/25 16:59 Discontinued Medications Enoxaparin Sodium (Enoxaparin Sod Inj 100 Mg/Ml Syringe) 68 mg 1 mg/kg (68 mg) SC NOW ONE Stop: 02/25/25 11:13 Last Admin: 02/25/25 12:34 Dose: Not Given Heparin Sodium (Porcine) (Heparin Sod Inj 5000 Unit/Ml Vial) 5,450 unit 80 unit/kg (5450 unit) IV X1 ONE; Protocol Stop: 02/25/25 11:57 Last Admin: 02/25/25 12:31 Dose: 5,450 unit Lactated Ringer's (Lactated Ringers) 1,000 mls @ 999 mls/hr IV .Q1H1M ONE Stop: 02/25/25 07:47 Last Infusion: 02/25/25 08:21 Dose: Infused Lactated Ringer's (Lactated Ringers) 1,000 mls @ 999 mls/hr IV .Q1H1M ONE Stop: 02/25/25 09:19 Last Infusion: 02/25/25 10:58 Dose: Infused Ceftriaxone Sodium/Dextrose (Rocephin/D5w 1gm Iv Premix) 1 gm in 50 mls @ 100 mls/hr IV X1 ONE Stop: 02/25/25 08:48 Last Infusion: 02/25/25 09:55 Dose: Infused Azithromycin 500 mg/ Sodium (Chloride) 250 mls @ 250 mls/hr IV NOW ONE Stop: 02/25/25 09:19 Last Infusion: 02/25/25 11:44 Dose: Infused Magnesium Sulfate (Magnesium Sulfate Ivpb) 2 gm in 50 mls @ 25 mls/hr IV X1 ONE Stop: 02/25/25 10:23 Last Infusion: 02/25/25 11:44 Dose: Infused Acetaminophen (Ofirmev Inj) 1,000 mg in 100 mls @ 250 mls/hr IV NOW ONE Stop: 02/25/25 10:09 Last Infusion: 02/25/25 10:35 Dose: Infused Lidocaine (Lidocaine 5% 1 Patch) 1 patch TOP X1 ONE Stop: 02/25/25 13:16 Last Admin: 02/25/25 13:49 Dose: 1 patch Assessment & Plan Plan Patient is 74 yr male with PMH of hypothyroidism, hypertension, type 2 diabetes insulin-dependent presenting to ED chief complaint of chest pain. Patient stated that the pain began yesterday morning causing him to wake up from sleep. Cardiology consulted after CT angio showed small bilateral pulmonary emboli. # Atypical chest pain Likely due to costochondritis as pain is related to movement. No concern for cardiac cause of the pain. Endorses the pain also in his neck and headache. Patient stated that the pain began yesterday morning, Denies any shortness of breath, diaphoresis, palpitations, abdominal pain, headache, dizziness. Occasionally works in the [employer] and when physically active, he does not endorse any chest pain or shortness of breath. Did not appear to have pulmonary emboli on CT scan from self read. Patient was started on [id number] mg x 1 and started on heparin drip for PE. He remains hemodynamically stable no evidence of right ventricle strain on CT imaging. Blood pressure 130/74 on admission. LE u/s was negative for DVT. His sPESI score 0, BNP normal, troponins were negative. - Stop heparin drip -monitor for changes in BP -avoid abrupt changes -consider anti-inflammatory agents for chest pain #Hypertension Appears that he takes amlodpine and HCTZ outpatient -resume after med rec -avoid abrupt drop in BP because of PE # Hydronephrosis #Inuslin dependent T2DM #Hypothyroidsim #Leukocytosis #JULIO #Electrolyte abnormalities Primary care team to manage above conditions and ongoing care needs. The patient's management plan was discussed with my attending physician Dr. Knight. Mago Carmona, PGY-2
--- NOTE | 2025-02-25 16:00 | ECHO_ITS ---
Patient Info Name: Shane Duncan Age: 74 years : 1950 Gender: Male Ht: 160 cm Wt: 68 kg BSA: 1.76 m2 BP: 144 / 84 mmHg HR: 99 bpm Exam Date: 02/26/2025 6:33 AM Admit Date: 02/25/2025 Site: [facility] Room Number: [id number] Patient Status: I Exam Type: CA echo doppler complete Pricer: Josseline Gonzales Ordering Physician: Silas Hunt Study Info Indications PE - Primary Location: S2NX Left Ventricular Outflow Tract Name Value Normal LVOT 2D LVOT Diameter 1.9 cm LVOT Doppler LVOT Peak Velocity 103 cm/s LVOT Mean Gradient 3 mmHg LVOT VTI 20 cm LVOT VTI/AV VTI Ratio 0.6 LVOT Stroke Volume 58 ml Mitral Valve Name Value Normal MV Doppler MV Decel [place] 469 cm/s2 MV PHT 38 ms MV Area (PHT) 5.8 cm2 4.0-5.0 MV Diastolic Function MV E Peak Velocity 61 cm/s MV A Peak Velocity 86 cm/s MV E/A 0.7 MV Annular TDI MV Septal e' Velocity 6.7 cm/s MV E/e' (Septal) 9.1 MV Lateral e' Velocity 6.2 cm/s MV E/e' (Lateral) 9.9 MV e' Average 6.47 cm/s MV E/e' (Average) 9.5 Tricuspid Valve Name Value Normal TV Regurgitation Doppler TR Peak Velocity 175 cm/s Estimated PAP/RSVP RA Pressure 8 mmHg <=5 PA Systolic Pressure 20 mmHg <36 RV Systolic Pressure 20 mmHg <36 TV Annular TDI TV Lateral Krystle s' Velocity 16.3 cm/s >=9.5 Aortic Valve Name Value Normal AV 2D/MM AV Cusp Sep (MM) 1.3 cm AV Doppler AV Peak Velocity 172 cm/s AV Mean Gradient 7 mmHg AV VTI 32 cm AV Area (Cont Eq VTI) 1.8 cm2 >=3.0 AV Area (Cont Eq Néstor) 1.7 cm2 AV DI (Néstor) 0.60 AV Regurgitation 2D LVOT Area 2.8 cm2 Ventricles Name Value Normal LV Dimensions 2D/MM IVS Diastolic Thickness (2D) 0.8 cm 0.6-1.0 LVID Diastole (2D) 4.6 cm 4.2-5.8 LVIW Diastolic Thickness (2D) 0.8 cm 0.6-1.0 LVID Systole (2D) 3.5 cm 2.5-4.0 LVOT Diameter 1.9 cm LV Mass (2D Cubed) 117.91 g 88.00-224.00 LV Mass Index (2D Cubed) 67 g/m2 49-115 Relative Wall Thickness (2D) 0.35 <=0.42 IVS/LVIW Diastolic Thickness (2D) 1.00 0.00-1.50 LV Fractional Shortening/Ejection Fraction 2D/MM LV Fractional Shortening (2D) 24 % 25-43 LV EF (2D Teichholz) 48 % RV Dimensions 2D/MM TV Lateral Krystle s' Velocity 16.3 cm/s >=9.5 Atria Name Value Normal LA Dimensions LA Volume (4C A-L) 34 ml LA Volume (BP A-L) 41 ml Left Ventricle Left ventricular chamber dimension is normal. Left ventricular systolic function is normal with visually estimated ejection fraction of 50-55%. There is normal geometry noted in the left ventricle. Left ventricular segmental wall motion is normal. There is grade I diastolic dysfunction in the left ventricle. Right Ventricle Right ventricular chamber dimension is normal. Right ventricular systolic function is normal. Left Atrium Left atrial chamber dimension is mildly enlarged. Right Atrium Right atrial chamber dimension is normal. Aortic Valve The aortic valve is trileaflet. There is no aortic valve sclerosis. There is no aortic valve stenosis with a peak velocity of 172 cm/s, mean gradient of 7 mmHg, and aortic valve area of 1.8 cm2. There is no aortic valve regurgitation. Pulmonic Valve The pulmonic valve is normal. There is no pulmonic valve stenosis. There is no pulmonic regurgitation. Mitral Valve The mitral valve has normal leaflets. There is no mitral valve stenosis. There is trace mitral valve regurgitation. Tricuspid Valve The tricuspid valve leaflets are normal. There is no tricuspid valve stenosis. There is trace tricuspid valve regurgitation. No pulmonary hypertension, estimated pulmonary arterial systolic pressure is 20 mmHg and systemic blood pressure of 144 mmHg in systole. Pericardium/Pleural The pericardium appears normal. There is no pericardial effusion. No pleural effusion visualized. Inferior Vena Cava Not well visualized inferior vena cava with >50% collapse upon inspiration consistent with normal right atrial pressure, 8 mmHg. Aorta The aortic measurements are indexed to age and body surface area. The aortic root at the sinus of Valsalva is not well visualized. The prox ascending aorta is not well visualized. Summary 1. Left ventricle size is normal and systolic function is normal. Estimated ejection fraction is 55-60%. There is grade I diastolic dysfunction. 2. Right ventricle chamber size is normal and systolic function is normal. Estimated RVSP is 20 mmHg. No RV strain. 3. Trace MR,TR. 4. The left atrium is mildly enlarged. The right atrium is normal. 5. Not well visualized IVC with estimated RA pressure 8 mmHg. Report Signatures Finalized by Robert Middleton on 02/26/2025 05:19 PM
[2025-02-25] MEDS: INSULIN LISPRO (AdmeLOG) 1 UNIT/0.01 ML UNIT SC (17:50)
[2025-02-25 19:12] LABS: Partial Thromboplastin Time 59.0 Seconds (22.0-36.0)
[2025-02-25] MEDS: hydrALAZINE INJ 20 MG/ML VIAL 10 MG IVP (19:44)
[2025-02-25] MEDS: Vancomycin Inj 1,500 MG in SODIUM CHLORIDE 0.9% 500 ML 500 ML 200 MG IV (21:28)
[2025-02-25] MEDS: PIPER/TAZO INJ 4.5 GM in SODIUM CHLORIDE 0.9% (POP) 100 ML IV (21:31)
[2025-02-26] VITALS (13 sets, daily range): BP systolic 135–173; BP diastolic 77–95; PULSE 87–115; RESP 16–98; TEMP 36.6–37.8; O2SAT 95–98; BMI 25.5
[2025-02-26] MEDS: ACETAMINOPHEN 325 MG TABLET 650 MG PO (01:12)
[2025-02-26 01:36] LABS: Strep A Rapid Negative (Negative)
[2025-02-26] MEDS: HYDROcodone/APAP 5/325 TABLET 1 TAB PO ×2 (02:05→22:49)
[2025-02-26] MEDS: LEVOTHYROXINE SODIUM 25 MCG TABLET 50 MCG PO (05:46)
[2025-02-26] MEDS: PIPER/TAZO INJ 4.5 GM in SODIUM CHLORIDE 0.9% (POP) 100 ML IV ×3 (05:46→21:01)
[2025-02-26 06:17] LABS: Basophils # (Auto) 0.0 Thou/mm3 (0.0-0.2); Basophils % (Auto) 0 % (0-2.5); Eosinophils # (Auto) 0.0 Thou/mm3 (0.0-0.5); Eosinophils % (Auto) 0 % (0-10); Hematocrit 32.9 % (41.0-53.0); Hemoglobin 11.4 g/dL (13.5-16.0); Immature Granulocytes Auto 0.09 Thou/mm3 (0.00-0.00); Lymphocytes # (Auto) 0.4 Thou/mm3 (1.0-4.8); Lymphocytes % (Auto) 3 % (10-50); Mean Corpuscular HGB Conc 34.7 g/dl (31.0-37.0); Mean Corpuscular Hemoglobin 30.4 pg (25.0-35.0); Mean Corpuscular Volume 88 fL (80-100); Monocytes # (Auto) 0.7 Thou/mm3 (0.0-0.8); Monocytes % (Auto) 4 % (0-12); Neutrophils # (Auto) 15.2 Thou/mm3 (1.8-7.7); Neutrophils % (Auto) 92 % (37-80); Nucleated Red Blood Cell # 0.00 Thou/mm3 (0.00-0.00); Nucleated Red Blood Cell % 0 /100 WBC (0); Platelet Count 182 Thou/mm3 (140-440); RDW Standard Deviation 39.8 fL (35.1-43.9); Red Blood Count 3.75 Miln/mm3 (4.50-5.90); White Blood Count 16.5 Thou/mm3 (3.8-10.6)
[2025-02-26 06:42] LABS: Alanine Aminotransferase 13 U/L (10-49); Albumin, Serum 3.7 gm/dL (3.4-4.8); Albumin/Globulin Ratio 1.4 (1.2-2.2); Alkaline Phosphatase 91 U/L (46-116); Anion Gap 13 (7-16); Aspartate Amino Transferase 12 U/L (0-34); BUN/Creatinine Ratio 18 Ratio (12-20); Bilirubin,Total 0.3 mg/dL (0.3-1.2); Blood Urea Nitrogen 28 mg/dL (9-23); Calcium 8.1 mg/dL (8.3-10.6); Calcium (Corrected) 8.3 mg/dL (8.5-10.1); Carbon Dioxide 22.5 mMol/L (20.0-31.0); Chloride 101 mMol/L (98-107); Creatinine (Component) 1.6 mg/dL (0.6-1.3); Estimated Creatinine Clearance 31.6 mL/min (>60); Globulin 2.7 gm/dL (2.3-3.5); Glucose 239 mg/dL (74-106); Lipase 31 U/L (12-53); Magnesium 1.7 mg/dL (1.6-2.6); Osmolality,Calculated 285 (275-295); Phosphorous 3.2 mg/dL (2.4-5.1); Potassium 3.9 mMol/L (3.4-5.1); Sodium 136 mMol/L (136-145); Total Protein 6.4 gm/dL (5.7-8.2); eGFR 44 See Note
[2025-02-26] MEDS: INSULIN LISPRO (AdmeLOG) 1 UNIT/0.01 ML UNIT SC ×4 (07:52→20:53)
[2025-02-26] MEDS: HEPARIN SOD INJ 5000 UNIT/ML VIAL SC ×2 (08:27→20:54)
[2025-02-26] MEDS: METOPROLOL SUCCINATE XL 25 MG TABCR PO (08:27)
[2025-02-26] MEDS: INSULIN DEGLUDEC 5 UNIT/0.05 ML (PER 5 UNITS) SC (08:27)
[2025-02-26] MEDS: RINGERS LACTATED 1000 ML 1,000 ML 100 ML IV ×2 (08:37→18:31)
--- NOTE | 2025-02-26 09:41 | ESPR_ITS ---
<Statement entered by Tucker Davis MD - 02/26/25 14:56> Patient was examined and case was reviewed with team including attending physician. Note reviewed, I agree with most of its contents and agree with the patient's care as documented by Dr. Roach Patient seen today at the bedside found awake, alert, orientedx3. No overnight events reported. Vital signs and labs reviewed. Spoke with Cardiology who reviewed imagined and stated there is no pulmonary embolism and heparin drip has been discontinued. Further imaging was done and physical exam findings seems more consistent with pyelonephritis. Blood cultures grew gram positive cocci. Repeat blood cultures sent. Currently on IV antibiotic therapy. Case discussed with my attending Dr. Sanya Davis MD PGY-2 Documentation for date of: 02/26/25 Subjective Subjective Interval history: Mr. Duncan is a 74 years old english spekaing male with history of hypothyroidism, hypertension, and diabetes type 2 who presented to ER on 02/25/25 for chest pain with radiation to the back and neck. Patient stated on the morning of 02/23/25, he woke up with constant, pressure like, chest pain that was centrally located with radiation to his back and neck. This pain was made worse with deep inspiration. He had never experienced similar episode before. He informed his chest pain to his son, who took him to a clinic for check up the day after on 02/24/25. He reported he was given some medications from the clinic with minimal improvement of his chest pain, who prompted him to seek care in the ER today on 02/25/25. He denied any fever, nausea, chill, vomiting, cough, dysuria. He does not take any hormone pill. No recent long travel or history of TIA/stroke, or clot in the lung or legs. No unilateral leg swelling or hemoptysis. He was admitted for chest pain. 02/26/25: NAOE. Cardiology does not think patient has pulmonary embolism after reviewing patient's CTA Chest scan and physical examination/clinical presentation. Heparin drip was discontinued. Patient continue to be afebrile, VSS. WBC decreased to 16.5 today. Bcx grew GPC 2/2. Repeat blood culture ordered, and patient will continue vancomycin and zosyn and de-escalate after. Patient's CT abdomen scan revealed perinephric stranding, concerning for pyelonephritis despite negative UA. Urine cultured was ordered out of precaution. Exam Vital Signs Temp Pulse Resp BP Pulse Ox O2 Del Method 98.7 F 92 18 138/79 H 97 Room Air 02/26/25 07:29 02/26/25 08:27 02/26/25 07:59 02/26/25 08:27 02/26/25 07:59 02/26/25 07:29 Narrative Exam General: Alert, oriented, in no acute distress. Citizen Of [place] speaking HEENT: Normocephalic, atraumatic Extraocular movements intact. No cervical lymphadenopathy. Neck: Supple, no JVD, no lymphadenopathy or thyroid enlargement. Cardiovascular: Regular rate and rhythm. No murmurs, rubs, or gallops. Respiratory: Clear to auscultation bilaterally. No wheezes, rales, or rhonchi. Normal respiratory effort. Abdomen: Soft, nontender, nondistended. No masses or organomegaly. Musculoskeletal: Full range of motion in all extremities. No joint swelling, tenderness, or deformities. Right middle finger amputated. Slight back pain with palpation, no CVA tenderness. Skin: Warm, dry, intact. No rashes or lesions. Psychiatric: Calm, cooperative, appropriate mood and affect. Objective Labs 02/26/25 04:48 02/26/25 04:48 Labs: Laboratory Results - last 24 hr 02/25/25 02/25/25 02/25/25 10:39 11:31 12:47 WBC RBC Hgb Hct MCV MCH MCHC RDW Std Deviation Plt Count Neut % (Auto) Lymph % (Auto) [place] % (Auto) Eos % (Auto) Baso % (Auto) Neut # (Auto) Lymph # (Auto) [place] # (Auto) Eos # (Auto) Baso # (Auto) Immature Gran # (Auto) Absolute Nucleated RBC Immature Gran % Nucleated RBC % APTT Sodium Potassium Chloride Carbon Dioxide Anion Gap BUN Creatinine Estim Creat Clear Calc eGFR BUN/Creatinine Ratio Glucose Estimated Ave Glu mg/dL 223 H Hemoglobin A1c 9.4 H Calculated Osmolality Lactic Acid 2.0 Calcium Corrected Calcium Phosphorus Magnesium Total Bilirubin AST ALT Alkaline Phosphatase Troponin I 0.024 Total Protein Albumin Globulin Albumin/Globulin Ratio Lipase Ur Collection Type Clean Catch Urine Color Colorless A Urine Clarity Clear Urine pH 7.5 H Ur Specific [place] 1.019 Urine Protein Trace Urine Glucose (UA) 4+ A Urine Ketones Negative Urine Blood Trace Urine Nitrite Negative Urine Bilirubin Negative Urine Urobilinogen (Auto) Negative Ur Leukocyte Esterase Negative Urine RBC 3 Urine WBC < 1 Ur Squamous Epith Cells 0 Urine Bacteria None Ur Culture Indicated? Not Indicated Group A Strep Rapid 02/25/25 02/26/25 02/26/25 18: 01:08 04:48 WBC 16.5 H D RBC 3.75 L Hgb 11.4 L Hct 32.9 L MCV 88 MCH 30.4 MCHC 34.7 RDW Std Deviation 39.8 Plt Count 182 D Neut % (Auto) 92 H Lymph % (Auto) 3 L [place] % (Auto) 4 Eos % (Auto) 0 Baso % (Auto) 0 Neut # (Auto) 15.2 H Lymph # (Auto) 0.4 L [place] # (Auto) 0.7 Eos # (Auto) 0.0 Baso # (Auto) 0.0 Immature Gran # (Auto) 0.09 H Absolute Nucleated RBC 0.00 Immature Gran % 1 H Nucleated RBC % 0 APTT 59.0 H D Sodium 136 Potassium 3.9 Chloride 101 Carbon Dioxide 22.5 Anion Gap 13 BUN 28 H Creatinine 1.6 H Estim Creat Clear Calc 31.6 L eGFR 44 L BUN/Creatinine Ratio [address] Glu mg/dL Hemoglobin A1c Calculated Osmolality 285 Lactic Acid Calcium 8.1 L Corrected Calcium 8.3 L Phosphorus 3.2 Magnesium 1.7 Total Bilirubin 0.3 AST 12 ALT 13 Alkaline Phosphatase 91 D Troponin I Total Protein 6.4 Albumin 3.7 D Globulin 2.7 Albumin/Globulin Ratio 1.4 Lipase 31 Ur Collection Type Urine Color Urine Clarity Urine pH Ur Specific [place] Urine Protein Urine Glucose (UA) Urine Ketones Urine Blood Urine Nitrite Urine Bilirubin Urine Urobilinogen (Auto) Ur Leukocyte Esterase Urine RBC Urine WBC Ur Squamous Epith Cells Urine Bacteria Ur Culture Indicated? Group A Strep Rapid Negative ABG Interpretation ABG results: 02/25/25 09:17 VBG pH 7.36 VBG pCO2 47 VBG pO2 23 VBG Base Excess 1 Quality Measures Quality Measures none Advance care planning discussed with:: patient Assessment & Plan Assessment Current Active Medications: Generic Name Dose Route Start Last Admin Trade Name Freq PRN Reason Stop Dose Admin Acetaminophen 650 mg 02/25/25 23:47 02/26/25 01:12 Acetaminophen 325 Mg Tablet PO 03/27/25 23:46 650 mg Q6HR PRN Administration Fever > 100.4 or pain 1-3 Amlodipine Besylate 5 mg 02/26/25 09:00 02/26/25 08:26 Amlodipine Besylate 5 Mg Tablet PO 03/28/25 08:59 5 mg QDAY LEATHA Administration Dextrose 25 ml 02/25/25 12:11 Dextrose 50%-Water Inj 50 Ml Syringe IV 03/27/25 12:10 Q15MIN PRN BG 50-70 responsive npo pt Dextrose 50 ml 02/25/25 12:11 Dextrose 50%-Water Inj 50 Ml Syringe IV 03/27/25 12:10 Q15MIN PRN BG <50 OR BG <70 & pt unresponsive Glucagon 1 mg 02/25/25 12:11 Glucagon Inj 1 Mg Vial IM Q15MIN PRN BG <70, and no IV access Heparin Sodium (Porcine) 5,000 unit 02/26/25 09:00 02/26/25 08:27 Heparin Sod Inj 5000 Unit/Ml Vial SC 03/12/25 08:59 5,000 unit BID LEATHA Administration Hydrochlorothiazide 25 mg 02/26/25 09:00 02/26/25 08:25 Hydrochlorothiazide 12.5 Mg Capsule PO 03/28/25 08:59 25 mg QDAY LEATHA Administration Piperacillin Sod/Tazobactam 100 mls @ 200 mls/hr 02/25/25 22:00 02/26/25 05:46 Sod 4.5 gm/ Sodium Chloride IV 03/04/25 21:59 200 mls/hr Q8HR LEATHA Administration Protocol Vancomycin/Sodium Chloride 100 mls @ 120 mls/hr 02/26/25 22:00 Vancomycin/Ns 500 Mg Ivpb IV 03/05/25 21:59 Q24H LEATHA Protocol Lactated Ringer's 1,000 mls @ 100 mls/hr 02/26/25 08:15 02/26/25 08:37 Lactated Ringers IV 03/28/25 08:14 100 mls/hr .Q10H LEATHA Administration Insulin Degludec 5 unit 02/26/25 09:00 02/26/25 08:27 Insulin Degludec 5 Unit/0.05 Ml (Per 5 Units) SC 03/28/25 08:59 5 unit QDAY LEATHA Administration Insulin Human Lispro 0 unit 02/26/25 07:30 02/26/25 07:52 Insulin Lispro (Admelog) 1 Unit/0.01 Ml Unit SC 03/28/25 07:29 3 unit ACHS [facility] Administration Protocol Levothyroxine Sodium 50 mcg 02/26/25 06:00 02/26/25 05:46 Levothyroxine Sodium 25 Mcg Tablet PO 03/28/25 05:59 50 mcg ACBR LEATHA Administration Metoprolol Succinate 25 mg 02/26/25 09:00 02/26/25 08:27 Metoprolol Succinate Xl 25 Mg Tabcr PO 03/28/25 08:59 25 mg QDAY [facility] Administration Pharmacy Consult 1 each 02/26/25 09:00 Vancomycin Pharmacy To Dose 1 Each Each IV 03/28/25 08:59 QDAY LEATHA Plan Mr. Duncan is a 74 years old Citizen [place] spekaing male with history of hypothyroidism, hypertension, and diabetes type 2 who presented to ER on 02/25/25 for chest pain with radiation to the back and neck. He was admitted for chest pain. #Atypical Chest pain, ACS ruled out #Hypertensive urgency #Sinus tachycardia #Pulmonary embolism, small, bilateral lower lobes - ruled out Initial Troponin 0.025. EKG sinus tachy without ST abnormalities. CTA revealed bilateral small pulmonary embolic at lower lobes. US doppler LE negative for DVT. Cardiology does not think patient has PE after reviewing CTA Chest and physical examination, heparin discontinued per their recommendation. - Repeat trop 0.024 - Repeat EKG NSR with rate of 99, no ST abnormalities - Heparin gtt. (discontinued 02/26/25) - labetalol 10mg x 1 (02/25/25) - lidocaine patch x 1 (02/25/25) - Continue metoprolol succinate 25mg PO QD. #Leukocytosis #SIRS 2/4 #Possible UTI Initial WBC 24.4. Rectal temp 100.3F. Tachycardic. Unknown source - UA negative - CXR unremarkable - Abdomen US : Mild to moderate left hydronephrosis with bilateral renal scar formation. - CT abdomen : perinephric stranding - Urine culture ordered. - Continue empiric antibiotics for now (Zosyn + Vanco) #JULIO #Left hydronephrosis, mild to moderate Cr 1.8. BUN 25 - Hold home lorsartan for now. - monitor urine output - daily labs, monitor chemistry - renal dose med, avoid nephrotoxin - no recent contrast or offending mediations #Hypertension - chronic medical problem - Continue home amlodipine 5mg PO QD, HCTZ 25mg PO QD. - hold Losartan 25mg PO QD for now, continue metoprolol succinate 25mg PO #Diabetes type 2 A1c 9.4 - chronic medical problem - on ISS. - Insulin Degludec 5 unit QD. - hypoglycemic protocol in place. - low carb diet #Hypothyroidism - chronic medical problem - Continue home levothyroxine 50 mcg PO QD. Health maintenance Dispo: UTI/Pyelonephritis treatment, pending repeat blood culture. DVT prophylaxis: HEPARIN GI prophylaxis: N/A Antibiotics: Zosyn and vanco Bowel Regimen: N/A Diet: CHO consistent low Lines: Peripheral IV Code status: Full code Case discussed with my senior resident Dr. Lockett Case discussed with my attending Dr. Sanya Roach DO PGY 1 Attending Provider Attestation/Addendum Madelaine Cheng DO, attest that I was physically present for the apple portions of the service and evaluated the patient with the resident and I reviewed and discussed the case with the resident and agree with the resident's findings and plans of care as documented above Patient seen and evaluated this AM. Chest pain has resolved. Patient stated that he had a squeezing like chest pain that occurred at rest and prompted him to come to the ED. The pain had radiated to the back of his head. Pain has since resolved. Per cardio, PE unlikely upon review of CTA. Anticoagulation is not recommended and was discontinued last night. Troponin is detectable, but negative. He is currently on Vancomycin and zosyn due to concern for bacteremia since 03/12 BC is positive for GPC. Pending urine cultures at this time.
--- NOTE | 2025-02-26 14:44 | PC.SS ---
Shane Duncan is a 74 year-old male admitted to [facility] for Chest Pain. SS conducted bedside contact with the patient to complete initial assessment and to discuss discharge planning. Role and reason explained. Patient confirmed demographic information. Patient identifies his nephew [phone] as his surrogate decision maker. Pt states he is able to complete all ADL?s independent. Pt uses a walker at home. Pt does not have a PCP. Pharmacy of choice is [facility]. Discharge options discussed and the pt wishes to return home.? Pt family will provide transport. No further intervention required at this time, social science manager would be available to address any further concerns. DC Plan: Home Contact: Yobany Henri Address: Confirmed on face sheet PCP: Baljit
[2025-02-26] MEDS: LIDOCAINE 5% 1 PATCH TOP (18:19)
[2025-02-26] MEDS: VANCOMYCIN/NS 500 MG IVPB 100 ML 120 MG IV (22:01)
[2025-02-27] VITALS (8 sets, daily range): BP systolic 116–160; BP diastolic 73–97; PULSE 80–101; RESP 13–99; TEMP 36.4–36.9; O2SAT 95–98; BMI 25.5
[2025-02-27] MEDS: ACETAMINOPHEN 325 MG TABLET 650 MG PO ×2 (03:29→11:47)
[2025-02-27] MEDS: RINGERS LACTATED 1000 ML 1,000 ML 100 ML IV (03:34)
[2025-02-27 05:10] LABS: Basophils # (Auto) 0.0 Thou/mm3 (0.0-0.2); Basophils % (Auto) 0 % (0-2.5); Eosinophils # (Auto) 0.0 Thou/mm3 (0.0-0.5); Eosinophils % (Auto) 0 % (0-10); Hematocrit 31.1 % (41.0-53.0); Hemoglobin 10.3 g/dL (13.5-16.0); Immature Granulocytes Auto 0.04 Thou/mm3 (0.00-0.00); Lymphocytes # (Auto) 0.8 Thou/mm3 (1.0-4.8); Lymphocytes % (Auto) 7 % (10-50); Mean Corpuscular HGB Conc 33.1 g/dl (31.0-37.0); Mean Corpuscular Hemoglobin 29.5 pg (25.0-35.0); Mean Corpuscular Volume 89 fL (80-100); Monocytes # (Auto) 0.9 Thou/mm3 (0.0-0.8); Monocytes % (Auto) 8 % (0-12); Neutrophils # (Auto) 9.5 Thou/mm3 (1.8-7.7); Neutrophils % (Auto) 84 % (37-80); Nucleated Red Blood Cell # 0.00 Thou/mm3 (0.00-0.00); Nucleated Red Blood Cell % 0 /100 WBC (0); Platelet Count 177 Thou/mm3 (140-440); RDW Standard Deviation 40.5 fL (35.1-43.9); Red Blood Count 3.49 Miln/mm3 (4.50-5.90); White Blood Count 11.3 Thou/mm3 (3.8-10.6)
[2025-02-27] MEDS: LEVOTHYROXINE SODIUM 25 MCG TABLET 50 MCG PO (05:12)
[2025-02-27] MEDS: PIPER/TAZO INJ 4.5 GM in SODIUM CHLORIDE 0.9% (POP) 100 ML IV (05:12)
[2025-02-27 05:31] LABS: INR 1.1 (0.9-1.3); Partial Thromboplastin Time 31.0 Seconds (22.0-36.0); Prothrombin Time 11.4 Seconds (9.0-12.2)
[2025-02-27 05:38] LABS: Alanine Aminotransferase 37 U/L (10-49); Albumin, Serum 3.7 gm/dL (3.4-4.8); Albumin/Globulin Ratio 1.3 (1.2-2.2); Alkaline Phosphatase 127 U/L (46-116); Anion Gap 10 (7-16); Aspartate Amino Transferase 66 U/L (0-34); BUN/Creatinine Ratio 18 Ratio (12-20); Bilirubin,Total 0.3 mg/dL (0.3-1.2); Blood Urea Nitrogen 32 mg/dL (9-23); Calcium 8.4 mg/dL (8.3-10.6); Calcium (Corrected) 8.6 mg/dL (8.5-10.1); Carbon Dioxide 25.0 mMol/L (20.0-31.0); Chloride 103 mMol/L (98-107); Creatinine (Component) 1.8 mg/dL (0.6-1.3); Estimated Creatinine Clearance 28.1 mL/min (>60); Globulin 2.9 gm/dL (2.3-3.5); Glucose 157 mg/dL (74-106); Magnesium 1.7 mg/dL (1.6-2.6); Osmolality,Calculated 285 (275-295); Phosphorous 3.0 mg/dL (2.4-5.1); Potassium 3.6 mMol/L (3.4-5.1); Sodium 138 mMol/L (136-145); Total Protein 6.6 gm/dL (5.7-8.2); eGFR 39 See Note
[2025-02-27] MEDS: INSULIN DEGLUDEC 5 UNIT/0.05 ML (PER 5 UNITS) SC (08:05)
[2025-02-27] MEDS: METOPROLOL SUCCINATE XL 25 MG TABCR PO (08:05)
[2025-02-27] MEDS: HEPARIN SOD INJ 5000 UNIT/ML VIAL SC ×2 (08:06→21:20)
--- NOTE | 2025-02-27 10:05 | PD.RESPRO ---
Documentation for date of: 02/27/25 Subjective Subjective Interval history: Patient seen today at the bedside found awake, alert, orientedx3. No overnight events reported. States he feels much better compared to arrival. No new episodes of chest pain, shortness of breath noted. His back pain has improved as well. Vital signs and labs reviewed. Blood cultures grew gram positive cocci again 04/12, repeat blood cultures sent, original cultures grew staph aureus sensitive to most antibiotics. Antibiotic therapy de-escalated to ceftriaxone. He states no issues with voiding however after voiding bladder scan was done and patient was retaining ~600ccs, gutiérrez catheter ordered and renal ultrasound was ordered, considering on prior imaging was having some hydronephrosis. Exam Vital Signs Temp Pulse Resp BP Pulse Ox O2 Del Method 97.6 F 80 16 135/97 H 96 Room Air 02/27/25 08:00 02/27/25 08:05 02/27/25 08:00 02/27/25 08:05 02/27/25 08:00 02/27/25 08:00 Narrative Exam Physical Exam GENERAL: NAD, AAOx3 HEENT: Moist mucosa. Eyes open, symmetrical, & clear CARDIO: Heart RRR, no obvious murmurs PULM: No noted coughing/dyspnea CTA B/L, no R/W/R GI: Abdomen soft, nondistended, no pain on palpation. BSx4 SKIN/MSK/EXT: Left CVA tenderness noted-improving, no pain on palpation. Pedal pulses present B/L NEURO: AAOx3, no focal neuro deficits, able to move all 4 extremities Objective Labs 02/27/25 04:35 02/27/25 04:35 Labs: Laboratory Results - last 24 hr 02/27/25 04:35 WBC 11.3 H D RBC 3.49 L Hgb 10.3 L Hct 31.1 L MCV 89 MCH 29.5 MCHC 33.1 RDW Std Deviation 40.5 Plt Count 177 Neut % (Auto) 84 H Lymph % (Auto) 7 L [place] % (Auto) 8 Eos % (Auto) 0 Baso % (Auto) 0 Neut # (Auto) 9.5 H Lymph # (Auto) 0.8 L [place] # (Auto) 0.9 H Eos # (Auto) 0.0 Baso # (Auto) 0.0 Immature Gran # (Auto) 0.04 H Absolute Nucleated RBC 0.00 Immature Gran % 0 Nucleated RBC % 0 PT 11.4 INR 1.1 APTT 31.0 D Sodium 138 Potassium 3.6 Chloride 103 Carbon Dioxide 25.0 Anion Gap 10 BUN 32 H Creatinine 1.8 H Estim Creat Clear Calc 28.1 L eGFR 39 L BUN/Creatinine Ratio 18 Glucose 157 H D Calculated Osmolality 285 Calcium 8.4 Corrected Calcium 8.6 Phosphorus 3.0 Magnesium 1.7 Total Bilirubin 0.3 AST 66 H ALT 37 Alkaline Phosphatase 127 H D Total Protein 6.6 Albumin 3.7 Globulin 2.9 Albumin/Globulin Ratio 1.3 ABG Interpretation ABG results: 02/25/25 09:17 VBG pH 7.36 VBG pCO2 47 VBG pO2 23 VBG Base Excess 1 Quality Measures Quality Measures none Advance care planning discussed with:: patient Assessment & Plan Assessment Current Active Medications: Generic Name Dose Route Start Last Admin Trade Name Freq PRN Reason Stop Dose Admin Acetaminophen 650 mg 02/25/25 23:47 02/27/25 03:29 Acetaminophen 325 Mg Tablet PO 03/27/25 23:46 650 mg Q6HR PRN Administration Fever > 100.4 or pain 1-3 Amlodipine Besylate 5 mg 02/26/25 09:00 02/27/25 08:05 Amlodipine Besylate 5 Mg Tablet PO 03/28/25 08:59 5 mg QDAY LEATHA Administration Cyclobenzaprine HCl 5 mg 02/26/25 09:49 02/27/25 03:29 Cyclobenzaprine 5 Mg Tablet PO 03/28/25 09:48 5 mg TID PRN Administration MUSCLE SPASMS Dextrose 25 ml 02/25/25 12:11 Dextrose 50%-Water Inj 50 Ml Syringe IV 03/27/25 12:10 Q15MIN PRN BG 50-70 responsive npo pt Dextrose 50 ml 02/25/25 12:11 Dextrose 50%-Water Inj 50 Ml Syringe IV 03/27/25 12:10 Q15MIN PRN BG <50 OR BG <70 & pt unresponsive Glucagon 1 mg 02/25/25 12:11 Glucagon Inj 1 Mg Vial IM Q15MIN PRN BG <70, and no IV access Heparin Sodium (Porcine) 5,000 unit 02/26/25 09:00 02/27/25 08:06 Heparin Sod Inj 5000 Unit/Ml Vial SC 03/12/25 08:59 5,000 unit BID LEATHA Administration Ceftriaxone Sodium/Dextrose 1 gm in 50 mls @ 100 mls/hr 02/27/25 09:58 Rocephin/D5w 1gm Iv Premix IV 03/06/25 09:57 QDAY LEATHA Insulin Degludec 5 unit 02/26/25 09:00 02/27/25 08:05 Insulin Degludec 5 Unit/0.05 Ml (Per 5 Units) SC 03/28/25 08:59 5 unit QDAY LEATHA Administration Insulin Human Lispro 0 unit 02/26/25 07:30 02/27/25 07:36 Insulin Lispro (Admelog) 1 Unit/0.01 Ml Unit SC 03/28/25 07:29 Not Given ACHS [facility] Protocol Levothyroxine Sodium 50 mcg 02/26/25 06:00 02/27/25 05:12 Levothyroxine Sodium 25 Mcg Tablet PO 03/28/25 05:59 50 mcg ACBR LEATHA Administration Lidocaine 1 patch 02/26/25 09:50 02/26/25 18:19 Lidocaine 5% 1 Patch TOP 03/28/25 09:49 1 patch UD PRN Administration back pain Metoprolol Succinate 25 mg 02/26/25 09:00 02/27/25 08:05 Metoprolol Succinate Xl 25 Mg Tabcr PO 03/28/25 08:59 25 mg QDAY LEATHA Administration Plan 74 years old [place] spekaing male with history of hypothyroidism, hypertension, and diabetes type 2 who presented to ER on 02/25/25 for chest pain with radiation to the back and neck. He was admitted for chest pain. #MSSA Staph Aureus Bacteremia #Leukocytosis #Pyelonephritis? Blood cultures 2/2 GPC repeat as well GPC2/2 CXR negative for PNA Perinephric stranding noted on CT abdomen, with CVA tenderness Patient found to be retaining urine as well as hydronephrosis from prior imaging Vanc + Zosyn [02/25-02/27] - F/u Blood cultures - f/u Urine cultures - Antibiotics de-escalted to Ceftriaxone [02/19- #Hypertensive urgency-improving - Continue metoprolol succinate 25mg PO QD. - amlodipine 5mg qday - Hold home lorsartan in view of JULIO #ACS ruled out #Sinus tachycardia-resolved #Pulmonary embolism, small, bilateral lower lobes - ruled out Initial Troponin 0.025. EKG sinus tachy without ST abnormalities. CTA revealed bilateral small pulmonary embolic at lower lobes. US doppler LE negative for DVT. Cardiology does not think patient has PE after reviewing CTA Chest and physical examination, heparin discontinued per their recommendation. Repeat trop 0.024 #JULIO, possible CKD IIIb #Left hydronephrosis, mild to moderate Cr 1.8. BUN 32; ratio 17, wnl Patient possibly has underlying CKD IIIb Found to be retaining urine after voiding, around 600cc's - F/u Renal US - Gutiérrez catheter insertion - Hold home lorsartan in view of JULIO - renal dose med, avoid nephrotoxin Chronic problems: #Hypertenson #Insulin dependent Diabetes mellitus type2 #Hypothyroidism - amlodipine 5mg qday - metoprolol 25mg qday - losartan on hold due to JULIO - levothyroxine 50mcg qday - insulin degludec 15u qday - insulin sliding scale - hypoglycemia protocol Health maintenance Dispo: MSSA Bacteremia, pending Blood culture repeat DVT prophylaxis: HEPARIN GI prophylaxis: N/A Antibiotics: Ceftriaxone Bowel Regimen: Colace Diet: Carb consistent low Lines: Peripheral IV Code status: Full code Case discussed with my attending Dr. Sanya Davis MD PGY-2 Disclaimer: Despite multiple revisions, due to the dictation software being used, the document bellow may not be free of grammatical errors including phonetic/typographic errors. However, this does not deter from our commitment to providing health care in the patient's best interest in mind. Attending Provider Attestation/Addendum I, Madelaine Segundo DO, attest that I was physically present for the apple portions of the service and evaluated the patient with the resident and I reviewed and discussed the case with the resident and agree with the resident's findings and plans of care as documented above Patient seen and evaluated this AM. Blood cultures continue to be positive for GPC, but initial culture is positive for MSSA bacteremia. Will switch vancomycin and zosyn to rocephin for treatment of bacteremia. CT abd/pelvis shows distended bladder. Patient denies dysuria or frequency or difficulty with voiding. Bladder scan done showing >500cc of urinary retention. Will place gutiérrez catheter and start on tamsulosin. Patient reports resolution of chest pain, but endorses some back pain with deep inspiration. Encouraged patient to use incentive spirometer.
[2025-02-27] MEDS: LIDOCAINE 5% 1 PATCH TOP (10:24)
[2025-02-27] MEDS: cefTRIAXone/D5w 1gm IV premix 1 GM/50 ML BAG IV ×2 (10:25→16:59)
[2025-02-27] MEDS: INSULIN LISPRO (AdmeLOG) 1 UNIT/0.01 ML UNIT SC ×3 (11:48→21:20)
--- NOTE | 2025-02-27 12:07 | XR_ITS ---
Examination: Retroperitoneal ultrasound, complete Technique: Multiple high resolution grayscale images of the retroperitoneum obtained, including kidneys and bladder. Exam date and time: February 27, 2025, 1305 hours INDICATIONS: Abdominal pain flank pain back pain beginning 2 days ago, renal sonogram February 25, 2025 small kidneys moderate bilateral renal scar formation mild to moderate left hydronephrosis FINDINGS: Right kidney 11.6 cm renal cortex 1.5 cm Left kidney 9.7 cm renal cortex 1.9 cm Mild to moderate renal scar formation No hydronephrosis Contracted urinary bladder IMPRESSION: No hydronephrosis on the current study
[2025-02-27] MEDS: TAMSULOSIN HCL 0.4 MG CAPSULE PO (14:50)
[2025-02-27] MEDS: INSULIN LISPRO (AdmeLOG) 1 UNIT/0.01 ML UNIT 10 UNIT SC (14:50)
[2025-02-27] MEDS: HYDROcodone/APAP 5/325 TABLET 1 TAB PO ×2 (15:04→20:34)
--- NOTE | 2025-02-27 18:39 | PC.NURSE ---
MD notified of pts uncontrolled pain in the neck, tylenol and flexeril were not effective, Schulter was given x1 and did provide some pain relief for pt. MD notified pt is requesting PRN Schulter if possible.
[2025-02-28] VITALS (9 sets, daily range): BP systolic 132–188; BP diastolic 79–99; PULSE 88–106; RESP 15–21; TEMP 36.3–36.9; O2SAT 95–97; BMI 26.9
--- NOTE | 2025-02-28 | XR_ITS ---
Examination: CT cervical spine with intravenous contrast, 2-D sagittal reconstructions. 2-D coronal reconstructions. 3-D reconstructions. Date and time of exam: February 28, 2025, 1443 hours INDICATIONS: Redness swelling and pain involving the right side of the neck 2 days CTDI: vol (mGy): 16.6 DLP: (mGycm): 162 Technique: Multiple 1.25 mm axial sections of the cervical spine post 30 cc Isovue-300 have been obtained. 2-D sagittal and coronal reconstructions have been obtained. 3-D reconstructions have been obtained. Low dose protocols were performed. One or more of the following dose reduction techniques were used; automated exposure control, adjustment of the mA and/or KV according to patient size, use of iterative reconstruction technique. Findings: Adequate alignment cervical vertebral bodies Moderate to advanced degenerative disc disease C3-C4, C4-C5, C5-C6, C6-C7 No cervical fracture The optic globes exhibit symmetry. The nasopharynx oropharynx exhibits symmetry with no pathologic lymphadenopathy There is mild edema around the right parotid gland No soft tissue abscess Probable reactive lymph nodes internal to the right sternocleidomastoid, the largest 9 mm The larynx appears normal Normal epiglottis IMPRESSION: Moderate to advanced degenerative disc disease as above There is mild edema about the parotid gland, consider parotitis No soft tissue abscess Normal larynx Normal epiglottis
[2025-02-28] MEDS: MELATONIN 3 MG TABLET 6 MG PO (02:27)
[2025-02-28] MEDS: HYDROcodone/APAP 5/325 TABLET 1 TAB PO ×2 (02:28→14:07)
[2025-02-28] MEDS: LEVOTHYROXINE SODIUM 25 MCG TABLET 50 MCG PO (05:16)
[2025-02-28] MEDS: ACETAMINOPHEN 325 MG TABLET 650 MG PO (05:17)
[2025-02-28 06:10] LABS: Basophils # (Auto) 0.0 Thou/mm3 (0.0-0.2); Basophils % (Auto) 0 % (0-2.5); Eosinophils # (Auto) 0.0 Thou/mm3 (0.0-0.5); Eosinophils % (Auto) 0 % (0-10); Hematocrit 33.1 % (41.0-53.0); Hemoglobin 11.0 g/dL (13.5-16.0); Immature Granulocytes Auto 0.05 Thou/mm3 (0.00-0.00); Lymphocytes # (Auto) 1.1 Thou/mm3 (1.0-4.8); Lymphocytes % (Auto) 11 % (10-50); Mean Corpuscular HGB Conc 33.2 g/dl (31.0-37.0); Mean Corpuscular Hemoglobin 29.6 pg (25.0-35.0); Mean Corpuscular Volume 89 fL (80-100); Monocytes # (Auto) 0.7 Thou/mm3 (0.0-0.8); Monocytes % (Auto) 7 % (0-12); Neutrophils # (Auto) 8.5 Thou/mm3 (1.8-7.7); Neutrophils % (Auto) 82 % (37-80); Nucleated Red Blood Cell # 0.00 Thou/mm3 (0.00-0.00); Nucleated Red Blood Cell % 0 /100 WBC (0); Platelet Count 194 Thou/mm3 (140-440); RDW Standard Deviation 40.4 fL (35.1-43.9); Red Blood Count 3.71 Miln/mm3 (4.50-5.90); White Blood Count 10.5 Thou/mm3 (3.8-10.6)
[2025-02-28 07:18] LABS: Alanine Aminotransferase 76 U/L (10-49); Albumin, Serum 3.7 gm/dL (3.4-4.8); Albumin/Globulin Ratio 1.1 (1.2-2.2); Alkaline Phosphatase 237 U/L (46-116); Anion Gap 12 (7-16); Aspartate Amino Transferase 140 U/L (0-34); BUN/Creatinine Ratio 18 Ratio (12-20); Bilirubin,Total 0.3 mg/dL (0.3-1.2); Blood Urea Nitrogen 29 mg/dL (9-23); Calcium 8.7 mg/dL (8.3-10.6); Calcium (Corrected) 8.9 mg/dL (8.5-10.1); Carbon Dioxide 23.2 mMol/L (20.0-31.0); Chloride 101 mMol/L (98-107); Creatinine (Component) 1.6 mg/dL (0.6-1.3); Estimated Creatinine Clearance 33.5 mL/min (>60); Globulin 3.5 gm/dL (2.3-3.5); Glucose 186 mg/dL (74-106); Magnesium 1.8 mg/dL (1.6-2.6); Osmolality,Calculated 282 (275-295); Phosphorous 3.2 mg/dL (2.4-5.1); Potassium 3.8 mMol/L (3.4-5.1); Sodium 136 mMol/L (136-145); Total Protein 7.2 gm/dL (5.7-8.2); eGFR 44 See Note
[2025-02-28] MEDS: SODIUM CHLORIDE 0.9% 1000 ML 1,000 ML 100 ML IV (08:30)
[2025-02-28] MEDS: Magnesium Sulfate 4 GM Ivpb 4 GM/50 ML BAG IV (08:30)
[2025-02-28] MEDS: cefTRIAXone 2 GM in SODIUM CHLORIDE 0.9% (Popper) 50 ML IV (08:30)
[2025-02-28] MEDS: INSULIN LISPRO (AdmeLOG) 1 UNIT/0.01 ML UNIT SC ×4 (08:31→20:20)
[2025-02-28] MEDS: INSULIN DEGLUDEC 5 UNIT/0.05 ML (PER 5 UNITS) 15 UNIT SC (08:31)
[2025-02-28] MEDS: HEPARIN SOD INJ 5000 UNIT/ML VIAL SC ×2 (08:32→20:20)
[2025-02-28] MEDS: TAMSULOSIN HCL 0.4 MG CAPSULE PO (08:33)
[2025-02-28] MEDS: METOPROLOL SUCCINATE XL 25 MG TABCR PO (08:33)
[2025-02-28] MEDS: DOCUSATE SOD 100 MG CAPSULE PO (08:33)
--- NOTE | 2025-02-28 10:03 | ESPR_ITS ---
<Statement entered by Ariana Bryant MD - 03/04/25 09:15> I reviewed above note and agree with findings and plans. I have also personally examined the patient with medicine team and went over assessment and plan with medical team including product marketing intern and resident physician. <Statement entered by Arron Albright MD - 02/28/25 19:12> In summary: A 74-year-old male with a history of hypothyroidism, hypertension, type 2 diabetes, and a recent chest pain episode was admitted to the hospital on 02/25/25. Initial concerns about ACS were ruled out, and a CTA revealed small bilateral pulmonary emboli, which were also ruled out by cardiology. Blood cultures confirmed MSSA Staph Aureus bacteremia, and the patient was started on VANCOMYCIN and ZOSYN and subsequently de-escelated to CEFTRIAXONE based on sensitivty. CT imaging showed left mild to moderate hydronephrosis, and the patient was found to be retaining urine, requiring a Gutiérrez catheter. Kidney function was closely monitored, and home losartan was held due to JULIO. Incidental findings included a suspicious 17 mm right liver lesion and moderate thoracic spondylosis. His liver enzymes were uptrending, likely due to Rocephin, and outpatient follow-up was recommended. The patient was also found to have sinus tachycardia and mild leukocytosis. Repeat blood Cx persistently growing GPC despite adequate ABX coverage, although he remains afebrile and WBC normalized. At this point, there is no clear source of his GPC bactermia. TTE showed no evidence of vegetation. ID to evaluate on Saturday and decided if DUDLEY needs to be obtained. However, he is clinically improving. CT cervical spine was done today for neck pain no evidence of acute pathology other than moderate advanced degenerative disc disease and possible parotitis (but clinically he does not meet this). I?ve reviewed the note and agree with this assessment and plan, with the exceptions outlined above. I personally went over the labs, imaging, home medications, and prior records, and examined the patient. The case was also reviewed with the attending physician. Please note: this document was transcribed using voice recognition technology; minor inaccuracies may be present. Arron Albright DO PGY II Documentation for date of: 02/28/25 Subjective Subjective Interval history: Mr. Duncan is a 74 years old somali spekaing male with history of hypothyroidism, hypertension, and diabetes type 2 who presented to ER on 02/25/25 for chest pain with radiation to the back and neck. Patient stated on the morning of 02/23/25, he woke up with constant, pressure like, chest pain that was centrally located with radiation to his back and neck. This pain was made worse with deep inspiration. He had never experienced similar episode before. He informed his chest pain to his son, who took him to a clinic for check up the day after on 02/24/25. He reported he was given some medications from the clinic with minimal improvement of his chest pain, who prompted him to seek care in the ER today on 02/25/25. He denied any fever, nausea, chill, vomiting, cough, dysuria. He does not take any hormone pill. No recent long travel or history of TIA/stroke, or clot in the lung or legs. No unilateral leg swelling or hemoptysis. He was admitted for chest pain. 02/26/25: NAOE. Cardiology does not think patient has pulmonary embolism after reviewing patient's CTA Chest scan and physical examination/clinical presentation. Heparin drip was discontinued. Patient continue to be afebrile, VSS. WBC decreased to 16.5 today. Bcx grew GPC 2/2. Repeat blood culture ordered, and patient will continue vancomycin and zosyn and de-escalate after. Patient's CT abdomen scan revealed perinephric stranding, concerning for pyelonephritis despite negative UA. Urine cultured was ordered out of precaution. 02/27/25: Patient seen today at the bedside found awake, alert, orientedx3. No overnight events reported. States he feels much better compared to arrival. No new episodes of chest pain, shortness of breath noted. His back pain has improved as well. Vital signs and labs reviewed. Blood cultures grew gram positive cocci again 2/2, repeat blood cultures sent, original cultures grew staph aureus sensitive to most antibiotics. Antibiotic therapy de-escalated to ceftriaxone. He states no issues with voiding however after voiding bladder scan was done and patient was retaining ~600ccs, gutiérrez catheter ordered and renal ultrasound was ordered, considering on prior imaging was having some hydronephrosis. 02/28/25: NAOE. Bcx continues to grew GPC 2/2 resembling Staph. A. Repeat BCx ordered. Unlikely source from kidney. ID consulted, pending recs, if needed, cardiology may perform DUDLEY to look for vegetation. Patient was noted to have right ring finger subuncgual hematoma from accidentally hitting against a tree last week, may be the source of infection, however, does not appear to be tender to touch nor erythematous on exam. Patient also reports neck pain that is worse today, will order CT cervical with contrast to r/o any infection. Increased Rocephin 1g to 2g today. Uptrending transaminitis likely due to Rocephin. Renal US unremarkable. Exam Vital Signs Temp Pulse Resp BP Pulse Ox O2 Del Method 97.4 F 89 19 143/84 H 95 Room Air 02/28/25 08:00 02/28/25 08:33 02/28/25 08:00 02/28/25 08:33 02/28/25 08:00 02/28/25 08:00 Narrative Exam General: Alert, oriented, in no acute distress. Liberian speaking HEENT: Normocephalic, atraumatic. No cervical lymphadenopathy. Neck: Supple, no JVD, no lymphadenopathy or thyroid enlargement. Cardiovascular: Regular rate and rhythm. No murmurs, rubs, or gallops. Chest non tender to palpation. Respiratory: Clear to auscultation bilaterally. No wheezes, rales, or rhonchi. Normal respiratory effort. Abdomen: Soft, nontender, nondistended. No masses or organomegaly. Musculoskeletal: Full range of motion in all extremities. No joint swelling, tenderness, or deformities. Right middle finger amputated. Subungual hematoma to right ring finger. Slight back pain with palpation, no CVA tenderness. Skin: Warm, dry, intact. No rashes or lesions. Psychiatric: Calm, cooperative, appropriate mood and affect. Objective Labs 02/28/25 05:05 02/28/25 05:05 Labs: Laboratory Results - last 24 hr 02/28/25 05:05 WBC 10.5 RBC 3.71 L Hgb 11.0 L Hct 33.1 L MCV 89 MCH 29.6 MCHC 33.2 RDW Std Deviation 40.4 Plt Count 194 Neut % (Auto) 82 H Lymph % (Auto) 11 [place] % (Auto) 7 Eos % (Auto) 0 Baso % (Auto) 0 Neut # (Auto) 8.5 H Lymph # (Auto) 1.1 [place] # (Auto) 0.7 Eos # (Auto) 0.0 Baso # (Auto) 0.0 Immature Gran # (Auto) 0.05 H Absolute Nucleated RBC 0.00 Immature Gran % 1 H Nucleated RBC % 0 Sodium 136 Potassium 3.8 Chloride 101 Carbon Dioxide 23.2 Anion Gap 12 BUN 29 H Creatinine 1.6 H Estim Creat Clear Calc 33.5 L eGFR 44 L BUN/Creatinine Ratio 18 Glucose 186 H Calculated Osmolality 282 Calcium 8.7 Corrected Calcium 8.9 Phosphorus 3.2 Magnesium 1.8 Total Bilirubin 0.3 AST 140 H ALT 76 H Alkaline Phosphatase 237 H D Total Protein 7.2 Albumin 3.7 Globulin 3.5 Albumin/Globulin Ratio 1.1 L ABG Interpretation ABG results: 02/25/25 09:17 VBG pH 7.36 VBG pCO2 47 VBG pO2 23 VBG Base Excess 1 Quality Measures Quality Measures none Advance care planning discussed with:: patient Assessment & Plan Assessment Current Active Medications: Generic Name Dose Route Start Last Admin Trade Name Freq PRN Reason Stop Dose Admin Acetaminophen 650 mg 02/25/25 23:47 02/28/25 05:17 Acetaminophen 325 Mg Tablet PO 03/27/25 23:46 650 mg Q6HR PRN Administration Fever > 100.4 or pain 1-3 Amlodipine Besylate 5 mg 02/26/25 09:00 02/28/25 08:32 Amlodipine Besylate 5 Mg Tablet PO 03/28/25 08:59 5 mg QDAY LEATHA Administration Cyclobenzaprine HCl 5 mg 02/26/25 09:49 02/28/25 05:17 Cyclobenzaprine 5 Mg Tablet PO 03/28/25 09:48 5 mg TID PRN Administration MUSCLE SPASMS Dextrose 25 ml 02/25/25 12:11 Dextrose 50%-Water Inj 50 Ml Syringe IV 03/27/25 12:10 Q15MIN PRN BG 50-70 responsive npo pt Dextrose 50 ml 02/25/25 12:11 Dextrose 50%-Water Inj 50 Ml Syringe IV 03/27/25 12:10 Q15MIN PRN BG <50 OR BG <70 & pt unresponsive Docusate Sodium 100 mg 02/28/25 09:00 02/28/25 08:33 Docusate Sod 100 Mg Capsule PO 03/30/25 08:59 100 mg QDAY LEATHA Administration Protocol Glucagon 1 mg 02/25/25 12:11 Glucagon Inj 1 Mg Vial IM Q15MIN PRN BG <70, and no IV access Heparin Sodium (Porcine) 5,000 unit 02/26/25 09:00 02/28/25 08:32 Heparin Sod Inj 5000 Unit/Ml Vial SC 03/12/25 08:59 5,000 unit BID LEATHA Administration Ceftriaxone Sodium 2 gm/ 50 mls @ 100 mls/hr 02/28/25 09:00 02/28/25 08:30 Sodium Chloride IV 03/07/25 08:59 100 mls/hr QDAY LEATHA Administration Magnesium Sulfate 4 gm in 50 mls @ 12.5 mls/hr 02/28/25 07:41 02/28/25 08:30 Magnesium Sulfate Ivpb IV 02/28/25 11:40 12.5 mls/hr X1 ONE Administration Sodium Chloride 1,000 mls @ 100 mls/hr 02/28/25 07:53 02/28/25 08:30 Ns IV 02/28/25 17:52 100 mls/hr Q10H ONE Administration Insulin Degludec 15 unit 02/28/25 09:00 02/28/25 08:31 Insulin Degludec 5 Unit/0.05 Ml (Per 5 Units) SC 03/30/25 08:59 15 unit QDAY LEATHA Administration Insulin Human Lispro 0 unit 02/26/25 07:30 02/28/25 08:31 Insulin Lispro (Admelog) 1 Unit/0.01 Ml Unit SC 03/28/25 07:29 3 unit ACHS LEATHA Administration Protocol Levothyroxine Sodium 50 mcg 02/26/25 06:00 02/28/25 05:16 Levothyroxine Sodium 25 Mcg Tablet PO 03/28/25 05:59 50 mcg ACBR LEATHA Administration Lidocaine 1 patch 02/26/25 09:50 02/26/25 18:19 Lidocaine 5% 1 Patch TOP 03/28/25 09:49 1 patch UD PRN Administration back pain Metoprolol Succinate 25 mg 02/26/25 09:00 02/28/25 08:33 Metoprolol Succinate Xl 25 Mg Tabcr PO 03/28/25 08:59 25 mg QDAY LEATHA Administration Tamsulosin HCl 0.4 mg 02/27/25 14:45 02/28/25 08:33 Tamsulosin Hcl 0.4 Mg Capsule PO 03/29/25 14:44 0.4 mg QDAY LEATHA Administration Plan 74 years old [place]ian spekaing male with history of hypothyroidism, hypertension, and diabetes type 2 who presented to ER on 02/25/25 for chest pain with radiation to the back and neck. He was admitted for chest pain. #MSSA Staph Aureus Bacteremia #Leukocytosis #Pyelonephritis? Blood cultures 2/2 GPC repeat as well GPC2/2 CXR negative for PNA Perinephric stranding noted on CT abdomen, with CVA tenderness Patient found to be retaining urine as well as hydronephrosis from prior imaging Vanc + Zosyn [02/25-02/27] - Bcx 02/25: Staph Aureus 2/2 - Bcx 02/26: GPC+ 2/2 - Bcx 02/27: GPC+ 1/2 - Repeat Bcx ordered 02/28 - Ucx -> No growth - Continue Ceftriaxone 2g [02/28- - ID consulted, appreciate recs - Cardiology consulted, appreciate recs - Follow up with CT cervical w/ con given patient's complain of neck pain (r/o infection source) #Hypertensive urgency-improving - Continue metoprolol succinate 25mg PO QD. - amlodipine 5mg qday - Hold home lorsartan in view of JULIO #ACS ruled out #Sinus tachycardia-resolved #Pulmonary embolism, small, bilateral lower lobes - ruled out Initial Troponin 0.025. EKG sinus tachy without ST abnormalities. CTA revealed bilateral small pulmonary embolic at lower lobes. US doppler LE negative for DVT. Cardiology does not think patient has PE after reviewing CTA Chest and physical examination, heparin discontinued per their recommendation. Repeat trop 0.024 #JULIO, possible CKD IIIb #Left hydronephrosis, mild to moderate Cr 1.8. BUN 32; ratio 17, wnl Patient possibly has underlying CKD IIIb Found to be retaining urine after voiding, around 600cc's - Renal US --> unremarkable, no hydronephrosis - Gutiérrez catheter insertion - Hold home lorsartan in view of UJLIO - renal dose med, avoid nephrotoxin #Suspicious for 17 mm right lobe liver lesion #Transaminitis - uptrending Incidental finding on Chest CTA 02/25/25 - transaminitis likely due to Rocephin - outpatient management and follow up #Moderate thoracic spondylosis Incidental finding on CXR 12/18/25. Patient also complaint of neck pain. - MMPR - outpatient follow up Chronic problems: #Hypertenson #Insulin dependent Diabetes mellitus type2 #Hypothyroidism - amlodipine 5mg qday - metoprolol 25mg qday - losartan on hold due to JULIO - levothyroxine 50mcg qday - insulin degludec 15u qday - insulin sliding scale - hypoglycemia protocol Health maintenance Dispo: MSSA Bacteremia, pending Blood culture repeat DVT prophylaxis: HEPARIN GI prophylaxis: N/A Antibiotics: Ceftriaxone Bowel Regimen: Colace Diet: Carb consistent low Lines: Peripheral IV Code status: Full code Case discussed with my senior resident Dr. Albright Case discussed with my attending Dr. Manny Roach, DO PGY 1
--- NOTE | 2025-02-28 14:54 | PC.NURSE ---
Dr. Hunt notified pt is in 10/10 pain after returning from CT scan, pt is tense and feels pain radiating throughout entire body, [place] was given before CT scan with no relief. to place orders for pain meds.
--- NOTE | 2025-02-28 15:57 | PC.SS ---
Rounding note: ID reccs. & CT Pending. Possible DUDLEY. Discharge plan: HOME
--- NOTE | 2025-02-28 16:04 | PC.NURSE ---
Dr. Gasca notified pt is still in 12/18 pain no new orders for pain control have been ordered.
--- NOTE | 2025-02-28 16:06 | PC.NURSE ---
Dr. Gasca notified pts BP is elevated as well 188/98
[2025-02-28] MEDS: KETOROLAC INJ 30 MG/ML VIAL IVP (16:23)
--- NOTE | 2025-02-28 17:22 | PC.NURSE ---
Notified Dr. Crocker (covering for Dr. Hunt) that pt is still having alot of pain in this right shoulder/nenck area, pt states he gets strong shocks of pain with movement then tingling in his hands.
[2025-02-28] MEDS: GABAPENTIN 100 MG CAPSULE PO (17:27)
[2025-02-28 21:38] LABS: Vancomycin,Trough 4.2 mcg/mL (5.0-10.0)
[2025-03-01] VITALS (8 sets, daily range): BP systolic 151–174; BP diastolic 83–99; PULSE 85–109; RESP 15–21; TEMP 36.2–37.1; O2SAT 96–98; BMI 25.9
[2025-03-01] MEDS: HYDROcodone/APAP 5/325 TABLET 1 TAB PO ×4 (04:11→23:10)
[2025-03-01] MEDS: LEVOTHYROXINE SODIUM 25 MCG TABLET 50 MCG PO (05:21)
[2025-03-01 06:28] LABS: Basophils # (Auto) 0.0 Thou/mm3 (0.0-0.2); Basophils % (Auto) 0 % (0-2.5); Eosinophils # (Auto) 0.0 Thou/mm3 (0.0-0.5); Eosinophils % (Auto) 0 % (0-10); Hematocrit 31.5 % (41.0-53.0); Hemoglobin 10.5 g/dL (13.5-16.0); Immature Granulocytes Auto 0.04 Thou/mm3 (0.00-0.00); Lymphocytes # (Auto) 1.0 Thou/mm3 (1.0-4.8); Lymphocytes % (Auto) 12 % (10-50); Mean Corpuscular HGB Conc 33.3 g/dl (31.0-37.0); Mean Corpuscular Hemoglobin 29.7 pg (25.0-35.0); Mean Corpuscular Volume 89 fL (80-100); Monocytes # (Auto) 0.8 Thou/mm3 (0.0-0.8); Monocytes % (Auto) 10 % (0-12); Neutrophils # (Auto) 6.3 Thou/mm3 (1.8-7.7); Neutrophils % (Auto) 77 % (37-80); Nucleated Red Blood Cell # 0.00 Thou/mm3 (0.00-0.00); Nucleated Red Blood Cell % 0 /100 WBC (0); Platelet Count 196 Thou/mm3 (140-440); RDW Standard Deviation 40.6 fL (35.1-43.9); Red Blood Count 3.53 Miln/mm3 (4.50-5.90); White Blood Count 8.2 Thou/mm3 (3.8-10.6)
[2025-03-01 06:40] LABS: Alanine Aminotransferase 97 U/L (10-49); Albumin, Serum 3.6 gm/dL (3.4-4.8); Albumin/Globulin Ratio 1.1 (1.2-2.2); Alkaline Phosphatase 274 U/L (46-116); Anion Gap 11 (7-16); Aspartate Amino Transferase 48 U/L (0-34); BUN/Creatinine Ratio 19 Ratio (12-20); Bilirubin,Total 0.2 mg/dL (0.3-1.2); Blood Urea Nitrogen 33 mg/dL (9-23); Calcium 8.5 mg/dL (8.3-10.6); Calcium (Corrected) 8.8 mg/dL (8.5-10.1); Carbon Dioxide 22.8 mMol/L (20.0-31.0); Chloride 102 mMol/L (98-107); Creatinine (Component) 1.7 mg/dL (0.6-1.3); Estimated Creatinine Clearance 31.1 mL/min (>60); Globulin 3.3 gm/dL (2.3-3.5); Glucose 237 mg/dL (74-106); Magnesium 2.4 mg/dL (1.6-2.6); Osmolality,Calculated 287 (275-295); Phosphorous 3.2 mg/dL (2.4-5.1); Potassium 4.1 mMol/L (3.4-5.1); Sodium 136 mMol/L (136-145); Total Protein 6.9 gm/dL (5.7-8.2); eGFR 41 See Note
[2025-03-01] MEDS: HEPARIN SOD INJ 5000 UNIT/ML VIAL SC ×2 (08:09→21:06)
[2025-03-01] MEDS: INSULIN DEGLUDEC 5 UNIT/0.05 ML (PER 5 UNITS) 20 UNIT SC (08:09)
[2025-03-01] MEDS: INSULIN LISPRO (AdmeLOG) 1 UNIT/0.01 ML UNIT SC ×4 (08:09→21:06)
[2025-03-01] MEDS: DOCUSATE SOD 100 MG CAPSULE PO (08:10)
[2025-03-01] MEDS: cefTRIAXone 2 GM in SODIUM CHLORIDE 0.9% (Popper) 50 ML IV (08:10)
[2025-03-01] MEDS: TAMSULOSIN HCL 0.4 MG CAPSULE PO (08:10)
[2025-03-01] MEDS: POLYETHYLENE GLYCOL 17 GM PACKET PO (08:11)
[2025-03-01] MEDS: METOPROLOL SUCCINATE XL 25 MG TABCR 50 MG PO (08:11)
--- NOTE | 2025-03-01 09:48 | ESPR_ITS ---
<Statement entered by Ariana Bryant MD - 03/05/25 08:35> I reviewed above note and agree with findings and plans. I have also personally examined the patient with medicine team and went over assessment and plan with medical team including risk management intern and resident physician. <Statement entered by Arrno Albright MD - 03/02/25 12:34> In summary: A 74-year-old male with a history of hypothyroidism, hypertension, type 2 diabetes, and a recent chest pain episode was admitted to the hospital on 02/25/25. Initial concerns about ACS were ruled out, and a CTA revealed small bilateral pulmonary emboli, which were also ruled out by cardiology. Blood cultures confirmed MSSA Staph Aureus bacteremia, and the patient was started on VANCOMYCIN and ZOSYN and subsequently de-escelated to CEFTRIAXONE based on sensitivty. CT imaging showed left mild to moderate hydronephrosis, and the patient was found to be retaining urine, requiring a Gutiérrez catheter. Kidney function was closely monitored, and home losartan was held due to JULIO. Incidental findings included a suspicious 17 mm right liver lesion and moderate thoracic spondylosis. His liver enzymes were uptrending, likely due to Rocephin, and outpatient follow-up was recommended. The patient was also found to have sinus tachycardia and mild leukocytosis. Repeat blood Cx persistently growing GPC despite adequate ABX coverage, although he remains afebrile and WBC normalized. At this point, there is no clear source of his GPC bactermia. TTE showed no evidence of vegetation. ID to evaluate on Saturday and decided if DUDLEY needs to be obtained. However, he is clinically improving. CT cervical spine was done today for neck pain no evidence of acute pathology other than moderate advanced degenerative disc disease and possible parotitis (but clinically he does not meet this). I?ve reviewed the note and agree with this assessment and plan, with the exceptions outlined above. I personally went over the labs, imaging, home medications, and prior records, and examined the patient. The case was also reviewed with the attending physician. Please note: this document was transcribed using voice recognition technology; minor inaccuracies may be present. Arron Albright DO PGY II Documentation for date of: 03/01/25 Subjective Subjective Interval history: Mr. Duncan is a 74 years old vincentian spekaing male with history of hypothyroidism, hypertension, and diabetes type 2 who presented to ER on 02/25/25 for chest pain with radiation to the back and neck. Patient stated on the morning of 02/23/25, he woke up with constant, pressure like, chest pain that was centrally located with radiation to his back and neck. This pain was made worse with deep inspiration. He had never experienced similar episode before. He informed his chest pain to his son, who took him to a clinic for check up the day after on 02/24/25. He reported he was given some medications from the clinic with minimal improvement of his chest pain, who prompted him to seek care in the ER today on 02/25/25. He denied any fever, nausea, chill, vomiting, cough, dysuria. He does not take any hormone pill. No recent long travel or history of TIA/stroke, or clot in the lung or legs. No unilateral leg swelling or hemoptysis. He was admitted for chest pain. 02/26/25: NAOE. Cardiology does not think patient has pulmonary embolism after reviewing patient's CTA Chest scan and physical examination/clinical presentation. Heparin drip was discontinued. Patient continue to be afebrile, VSS. WBC decreased to 16.5 today. Bcx grew GPC 2/2. Repeat blood culture ordered, and patient will continue vancomycin and zosyn and de-escalate after. Patient's CT abdomen scan revealed perinephric stranding, concerning for pyelonephritis despite negative UA. Urine cultured was ordered out of precaution. 02/27/25: Patient seen today at the bedside found awake, alert, orientedx3. No overnight events reported. States he feels much better compared to arrival. No new episodes of chest pain, shortness of breath noted. His back pain has improved as well. Vital signs and labs reviewed. Blood cultures grew gram positive cocci again 2/2, repeat blood cultures sent, original cultures grew staph aureus sensitive to most antibiotics. Antibiotic therapy de-escalated to ceftriaxone. He states no issues with voiding however after voiding bladder scan was done and patient was retaining ~600ccs, gutiérrez catheter ordered and renal ultrasound was ordered, considering on prior imaging was having some hydronephrosis. 02/28/25: NAOE. Bcx continues to grew GPC 2/2 resembling Staph. A. Repeat BCx ordered. Unlikely source from kidney. ID consulted, pending recs, if needed, cardiology may perform DUDLEY to look for vegetation. Patient was noted to have right ring finger subuncgual hematoma from accidentally hitting against a tree last week, may be the source of infection, however, does not appear to be tender to touch nor erythematous on exam. Patient also reports neck pain that is worse today, will order CT cervical with contrast to r/o any infection. Increased Rocephin 1g to 2g today. Uptrending transaminitis likely due to Rocephin. Renal US unremarkable. 03/01/25: NAOE. Bcx continues to grew GPC 1/[address] cervical revealed moderate to advanced degenerative disc disease C3-C4, C4-C5, C5-C6, C6- C7, likely contributing to patient's complaint of neck pain. Per ID, repeat blood culture tmr, if negative, patient can be sent home with 2 weeks of Rocephin 2g QD. Gabapentin added today to address patient's neck pain/chest pain, will reassess tmr. All images and work up at this point could not reveal the underlying cause of patient's chest pain/neck pain, but will continue to monitor closely. Exam Vital Signs Temp Pulse Resp BP Pulse Ox O2 Del Method 97.2 F 85 17 151/91 H 97 Room Air 03/01/25 08:00 03/01/25 08:11 03/01/25 08:00 03/01/25 08:11 03/01/25 08:00 03/01/25 08:00 Narrative Exam General: Alert, oriented, in no acute distress. Palauan speaking HEENT: Normocephalic, atraumatic. No cervical lymphadenopathy. Neck: Supple, no JVD, no lymphadenopathy or thyroid enlargement. Limited neck movement. Cardiovascular: Regular rate and rhythm. No murmurs, rubs, or gallops. Respiratory: Clear to auscultation bilaterally. No wheezes, rales, or rhonchi. Normal respiratory effort. Abdomen: Soft, nontender, nondistended. No masses or organomegaly. Musculoskeletal: Full range of motion in all extremities. No joint swelling, tenderness, or deformities. Right middle finger amputated. Slight back pain with palpation, no CVA tenderness. Skin: Warm, dry, intact. No rashes or lesions. Psychiatric: Calm, cooperative, appropriate mood and affect. Objective Labs 03/01/25 04:44 03/01/25 04:44 Labs: Laboratory Results - last 24 hr 02/28/25 03/01/25 20:57 04:44 WBC 8.2 RBC 3.53 L Hgb 10.5 L Hct 31.5 L MCV 89 MCH 29.7 MCHC 33.3 RDW Std Deviation 40.6 Plt Count 196 Neut % (Auto) 77 Lymph % (Auto) 12 [place] % (Auto) 10 Eos % (Auto) 0 Baso % (Auto) 0 Neut # (Auto) 6.3 Lymph # (Auto) 1.0 [place] # (Auto) 0.8 Eos # (Auto) 0.0 Baso # (Auto) 0.0 Immature Gran # (Auto) 0.04 H Absolute Nucleated RBC 0.00 Immature Gran % 1 H Nucleated RBC % 0 Sodium 136 Potassium 4.1 Chloride 102 Carbon Dioxide 22.8 Anion Gap 11 BUN 33 H Creatinine 1.7 H Estim Creat Clear Calc 31.1 L eGFR 41 L BUN/Creatinine Ratio 19 Glucose 237 H D Calculated Osmolality 287 Calcium 8.5 Corrected Calcium 8.8 Phosphorus 3.2 Magnesium 2.4 Total Bilirubin 0.2 L AST 48 H ALT 97 H Alkaline Phosphatase 274 H D Total Protein 6.9 Albumin 3.6 Globulin 3.3 Albumin/Globulin Ratio 1.1 L Vancomycin Trough 4.2 L ABG Interpretation ABG results: 02/25/25 09:17 VBG pH 7.36 VBG pCO2 47 VBG pO2 23 VBG Base Excess 1 Quality Measures Quality Measures none Advance care planning discussed with:: patient Assessment & Plan Assessment Current Active Medications: Generic Name Dose Route Start Last Admin Trade Name Guillaume PRN Reason Stop Dose Admin Acetaminophen 650 mg 02/25/25 23:47 02/28/25 05:17 Acetaminophen 325 Mg Tablet PO 03/27/25 23:46 650 mg Q6HR PRN Administration Fever > 100.4 or pain 1-3 Hydrocodone Bitart/Acetaminophen 1 tab 02/28/25 17:22 03/01/25 04:11 Hydrocodone/Apap 5/325 Tablet PO 03/05/25 17:21 1 tab Q6HR PRN Administration PAIN SCALE 4-10(Mod-Sev Amlodipine Besylate 5 mg 02/26/25 09:00 03/01/25 08:10 Amlodipine Besylate 5 Mg Tablet PO 03/28/25 08:59 5 mg QDAY LEATHA Administration Cyclobenzaprine HCl 5 mg 02/26/25 09:49 03/01/25 08:11 Cyclobenzaprine 5 Mg Tablet PO 03/28/25 09:48 5 mg TID PRN Administration MUSCLE SPASMS Dextrose 25 ml 02/25/25 12:11 Dextrose 50%-Water Inj 50 Ml Syringe IV 03/27/25 12:10 Q15MIN PRN BG 50-70 responsive npo pt Dextrose 50 ml 02/25/25 12:11 Dextrose 50%-Water Inj 50 Ml Syringe IV 03/27/25 12:10 Q15MIN PRN BG <50 OR BG <70 & pt unresponsive Docusate Sodium 100 mg 02/28/25 09:00 03/01/25 08:10 Docusate Sod 100 Mg Capsule PO 03/30/25 08:59 100 mg QDAY LEATHA Administration Protocol Glucagon 1 mg 02/25/25 12:11 Glucagon Inj 1 Mg Vial IM Q15MIN PRN BG <70, and no IV access Heparin Sodium (Porcine) 5,000 unit 02/26/25 09:00 03/01/25 08:09 Heparin Sod Inj 5000 Unit/Ml Vial SC 03/12/25 08:59 5,000 unit BID LEATHA Administration Ceftriaxone Sodium 2 gm/ 50 mls @ 100 mls/hr 02/28/25 09:00 03/01/25 08:10 Sodium Chloride IV 03/07/25 08:59 100 mls/hr QDAY LEATHA Administration Insulin Degludec 20 unit 03/01/25 09:00 03/01/25 08:09 Insulin Degludec 5 Unit/0.05 Ml (Per 5 Units) SC 03/31/25 08:59 20 unit QDAY LEATHA Administration Insulin Human Lispro 0 unit 02/26/25 07:30 03/01/25 08:09 Insulin Lispro (Admelog) 1 Unit/0.01 Ml Unit SC 03/28/25 07:29 3 unit ACHS LEATHA Administration Protocol Levothyroxine Sodium 50 mcg 02/26/25 06:00 03/01/25 05:21 Levothyroxine Sodium 25 Mcg Tablet PO 03/28/25 05:59 50 mcg ACBR LEATHA Administration Lidocaine 1 patch 02/26/25 09:50 02/26/25 18:19 Lidocaine 5% 1 Patch TOP 03/28/25 09:49 1 patch UD PRN Administration back pain Metoprolol Succinate 50 mg 03/01/25 09:00 03/01/25 08:11 Metoprolol Succinate Xl 25 Mg Tabcr PO 03/31/25 08:59 50 mg QDAY LEATHA Administration Tamsulosin HCl 0.4 mg 02/27/25 14:45 03/01/25 08:10 Tamsulosin Hcl 0.4 Mg Capsule PO 03/29/25 14:44 0.4 mg QDAY LEATHA Administration Plan 74 years old [place] spekaing male with history of hypothyroidism, hypertension, and diabetes type 2 who presented to ER on 02/25/25 for chest pain with radiation to the back and neck. He was admitted for chest pain. #MSSA Staph Aureus Bacteremia #Leukocytosis #Pyelonephritis - ruled out Blood cultures 2/ GPC repeat as well GPC2/ CXR negative for PNA Perinephric stranding noted on CT abdomen, with CVA tenderness Patient found to be retaining urine as well as hydronephrosis from prior imaging Vanc + Zosyn [02/25-02/27] - Bcx 02/25: Staph Aureus 2/2 - Bcx 02/26: GPC+ 2/2 -> Staph Aureus - Bcx 02/27: GPC+ 1/2 - Bcx 02/28: GPC+ 1/2 - Repeat Bcx ordered 03/01 - Ucx -> No growth - Continue Ceftriaxone 2g [02/28- - ID consulted, appreciate recs --> can d/c if Bcx negative with 2 weeks of oral rocephin 2g QD. - Cardiology consulted, appreciate recs -CT cervical w/ con --> no signs of infection, moderate DJD. #Hypertensive urgency-improving - Increased metoprolol succinate from 25mg to 50mg PO QD. - amlodipine 5mg qday - Hold home lorsartan in view of JULIO #ACS ruled out #Sinus tachycardia-resolved #Pulmonary embolism, small, bilateral lower lobes - ruled out Initial Troponin 0.025. EKG sinus tachy without ST abnormalities. CTA revealed bilateral small pulmonary embolic at lower lobes. US doppler LE negative for DVT. Cardiology does not think patient has PE after reviewing CTA Chest and physical examination, heparin discontinued per their recommendation. Repeat trop 0.024 #JULIO, possible CKD IIIb #Left hydronephrosis, mild to moderate Cr 1.8. BUN 32; ratio 17, wnl Patient possibly has underlying CKD IIIb Found to be retaining urine after voiding, around 600cc's - Renal US --> unremarkable, no hydronephrosis - Hold home lorsartan in view of JULIO - renal dose med, avoid nephrotoxin #Suspicious for 17 mm right lobe liver lesion #Transaminitis - downtrending Incidental finding on Chest CTA 02/25/25 - Transaminitis likely due to Rocephin - outpatient management and follow up #Moderate thoracic spondylosis Incidental finding on CXR 02/25/25. Patient also complaint of neck pain. - MMPR - outpatient follow up Chronic problems: #Hypertenson #Insulin dependent Diabetes mellitus type2 #Hypothyroidism - amlodipine 5mg qday - metoprolol 25mg qday - losartan on hold due to JULIO - levothyroxine 50mcg qday - Increased insulin degludec from 15u --> 20u qday - insulin sliding scale - hypoglycemia protocol Health maintenance Dispo: MSSA Bacteremia, pending Blood culture repeat DVT prophylaxis: HEPARIN GI prophylaxis: N/A Antibiotics: Ceftriaxone Bowel Regimen: Colace Diet: Carb consistent low Lines: Peripheral IV Code status: Full code Case discussed with my senior resident Dr. Albright Case discussed with my attending Dr. Manny Roach, DO PGY 1
--- NOTE | 2025-03-01 09:51 | ESPR_ITS ---
Subjective Subjective Interval history: asked to see for staph in bc on arrival 04/28. repeat pos /2 so far, so will get more tomorrow, echo neg for overt vegetations. Exam Vital Signs Temp Pulse Resp BP Pulse Ox O2 Del Method 97.2 F 85 17 151/91 H 97 Room Air 03/01/25 08:00 03/01/25 08:11 03/01/25 08:00 03/01/25 08:11 03/01/25 08:00 03/01/25 08:00 Narrative Exam no active sores noted. no m. no emboli. speaks primarily Kazakh. Objective - Internal Medicine Labs 03/01/25 04:44 03/01/25 04:44 Labs: Laboratory Results - last 24 hr 02/28/25 03/01/25 20:57 04:44 WBC 8.2 RBC 3.53 L Hgb 10.5 L Hct 31.5 L MCV 89 MCH 29.7 MCHC 33.3 RDW Std Deviation 40.6 Plt Count 196 Neut % (Auto) 77 Lymph % (Auto) 12 [place] % (Auto) 10 Eos % (Auto) 0 Baso % (Auto) 0 Neut # (Auto) 6.3 Lymph # (Auto) 1.0 [place] # (Auto) 0.8 Eos # (Auto) 0.0 Baso # (Auto) 0.0 Immature Gran # (Auto) 0.04 H Absolute Nucleated RBC 0.00 Immature Gran % 1 H Nucleated RBC % 0 Sodium 136 Potassium 4.1 Chloride 102 Carbon Dioxide 22.8 Anion Gap 11 BUN 33 H Creatinine 1.7 H Estim Creat Clear Calc 31.1 L eGFR 41 L BUN/Creatinine Ratio 19 Glucose 237 H D Calculated Osmolality 287 Calcium 8.5 Corrected Calcium 8.8 Phosphorus 3.2 Magnesium 2.4 Total Bilirubin 0.2 L AST 48 H ALT 97 H Alkaline Phosphatase 274 H D Total Protein 6.9 Albumin 3.6 Globulin 3.3 Albumin/Globulin Ratio 1.1 L Vancomycin Trough 4.2 L ABG Interpretation ABG results: 02/25/25 09:17 VBG pH 7.36 VBG pCO2 47 VBG pO2 23 VBG Base Excess 1 Assessment & Plan A&P Narrative staph in . pe htn dm II hypothroidism will get more bc in am and see again wed. likely to need at least 2 weeks rx from first neg bc, so possiby from 03/02-03/16 with rocephin 2 gm/day iv even though he is here for a PE. I can not see him as an outpt. Time Spent With Patient Time: Total time spent is greater than 50% in coordination of care (as documented) at patient's floor/unit and/or counseling patient:
--- NOTE | 2025-03-01 10:32 | ESCONSULT_ITS ---
RE: JOHAN BLEVINS : 1950 DATE OF CONSULTATION: 03/01/2025 REFERRING PHYSICIAN: Dr. Moncada. REASON FOR CONSULTATION: Bacteremia. Blood cultures were positive on arrival with Staphylococcus aureus. He also had a pulmonary embolism. HISTORY OF PRESENT ILLNESS: He apparently is diabetic and has no active sores anywhere but with dm, bacteremia can occur. An echocardiogram was negative but also negative for right ventricular strain which would be commonly seen with pulmonary embolism. No endocarditis is noted. A repeat blood culture is positive on the and as of yesterday, so we will get some more tomorrow. PAST SURGICAL HISTORY: None noted. ALLERGIES: NONE NOTED. IMMUNIZATIONS: Not available. MEDICATIONS: Other than the diabetes and the PE, he takes no medication. There are no other health problems. His records suggest history of hypertension and hypothyroidism for which he takes medication. FAMILY HISTORY: Not contributory. SOCIAL HISTORY: Similarly not contributory although his living situation is not well known. He does come from [place]. PHYSICAL EXAMINATION: Patient has no active sores in his extremities. IMPRESSION: His source of his bacteremia is not clear. He does not have a central line in place, does not have cancer or a port. He has never received any chemotherapy. Cause of the pulmonary embolism is not known but he is also older and could have that occur somewhat spontaneously. With his diabetes being well-controlled, he still has diabetes, so you still have to watch it period. He is 74 years old. RECOMMENDATIONS: I am going to check a hepatitis C tomorrow. I will check on him on Saturday. If blood cultures are negative at that time, he could probably go home on 48 hours from first neg bc for 2 weeks of Rocephin 2 g a day. Normally, we leave patients on Ancef till the blood cultures are negative but if you wish to leave him on Rocephin that is fine. He is certainly tolerating it rather well. His creatinine seems normal. DT: 10:15:56 TT: 10:30:00 Ref: [id number] - TID: [id number] MTDD
[2025-03-01] MEDS: PANTOPRAZOLE 40 MG TABLET PO ×2 (12:49→21:06)
[2025-03-01] MEDS: GABAPENTIN 300 MG CAPSULE PO (14:21)
[2025-03-02] VITALS (9 sets, daily range): BP systolic 104–173; BP diastolic 77–93; PULSE 86–101; RESP 16–22; TEMP 36.4–37.8; O2SAT 95–98; BMI 25.8
[2025-03-02] MEDS: ACETAMINOPHEN 325 MG TABLET 650 MG PO (03:56)
[2025-03-02] MEDS: LEVOTHYROXINE SODIUM 25 MCG TABLET 50 MCG PO (05:49)
[2025-03-02 06:24] LABS: Basophils # (Auto) 0.0 Thou/mm3 (0.0-0.2); Basophils % (Auto) 0 % (0-2.5); Eosinophils # (Auto) 0.0 Thou/mm3 (0.0-0.5); Eosinophils % (Auto) 0 % (0-10); Hematocrit 31.1 % (41.0-53.0); Hemoglobin 10.4 g/dL (13.5-16.0); Immature Granulocytes Auto 0.08 Thou/mm3 (0.00-0.00); Lymphocytes # (Auto) 1.2 Thou/mm3 (1.0-4.8); Lymphocytes % (Auto) 12 % (10-50); Mean Corpuscular HGB Conc 33.4 g/dl (31.0-37.0); Mean Corpuscular Hemoglobin 29.7 pg (25.0-35.0); Mean Corpuscular Volume 89 fL (80-100); Monocytes # (Auto) 0.8 Thou/mm3 (0.0-0.8); Monocytes % (Auto) 9 % (0-12); Neutrophils # (Auto) 7.3 Thou/mm3 (1.8-7.7); Neutrophils % (Auto) 78 % (37-80); Nucleated Red Blood Cell # 0.00 Thou/mm3 (0.00-0.00); Nucleated Red Blood Cell % 0 /100 WBC (0); Platelet Count 223 Thou/mm3 (140-440); RDW Standard Deviation 39.4 fL (35.1-43.9); Red Blood Count 3.50 Miln/mm3 (4.50-5.90); White Blood Count 9.4 Thou/mm3 (3.8-10.6)
[2025-03-02 06:43] LABS: Alanine Aminotransferase 63 U/L (10-49); Albumin, Serum 3.6 gm/dL (3.4-4.8); Albumin/Globulin Ratio 1.1 (1.2-2.2); Alkaline Phosphatase 221 U/L (46-116); Anion Gap 11 (7-16); Aspartate Amino Transferase 24 U/L (0-34); BUN/Creatinine Ratio 20 Ratio (12-20); Bilirubin,Total 0.2 mg/dL (0.3-1.2); Blood Urea Nitrogen 34 mg/dL (9-23); Calcium 8.5 mg/dL (8.3-10.6); Calcium (Corrected) 8.8 mg/dL (8.5-10.1); Carbon Dioxide 22.2 mMol/L (20.0-31.0); Chloride 103 mMol/L (98-107); Creatinine (Component) 1.7 mg/dL (0.6-1.3); Estimated Creatinine Clearance 31.0 mL/min (>60); Globulin 3.4 gm/dL (2.3-3.5); Glucose 212 mg/dL (74-106); Magnesium 2.1 mg/dL (1.6-2.6); Osmolality,Calculated 285 (275-295); Phosphorous 3.8 mg/dL (2.4-5.1); Potassium 4.1 mMol/L (3.4-5.1); Sodium 136 mMol/L (136-145); Total Protein 7.0 gm/dL (5.7-8.2); eGFR 41 See Note
[2025-03-02 07:04] LABS: Hepatitis C Antibody Non Reactive (Non React)
[2025-03-02] MEDS: TAMSULOSIN HCL 0.4 MG CAPSULE PO (08:05)
[2025-03-02] MEDS: PANTOPRAZOLE 40 MG TABLET PO ×2 (08:05→20:25)
[2025-03-02] MEDS: DOCUSATE SOD 100 MG CAPSULE PO (08:05)
[2025-03-02] MEDS: METOPROLOL SUCCINATE XL 25 MG TABCR 50 MG PO (08:06)
[2025-03-02] MEDS: cefTRIAXone 2 GM in SODIUM CHLORIDE 0.9% (Popper) 50 ML IV (08:06)
[2025-03-02] MEDS: INSULIN LISPRO (AdmeLOG) 1 UNIT/0.01 ML UNIT SC ×4 (08:07→20:25)
[2025-03-02] MEDS: GABAPENTIN 300 MG CAPSULE PO (08:07)
[2025-03-02] MEDS: INSULIN DEGLUDEC 5 UNIT/0.05 ML (PER 5 UNITS) 20 UNIT SC (08:08)
[2025-03-02] MEDS: HEPARIN SOD INJ 5000 UNIT/ML VIAL SC ×2 (08:08→20:25)
--- NOTE | 2025-03-02 08:32 | ESPR_ITS ---
<Statement entered by Ariana Bryant MD - 03/06/25 12:53> I reviewed above note and agree with findings and plans. I have also personally examined the patient with medicine team and went over assessment and plan with medical team including management retail intern and resident physician. <Statement entered by Arron Albright MD - 03/02/25 12:41> In summary: A 74-year-old male with a history of hypothyroidism, hypertension, type 2 diabetes, and a recent chest pain episode was admitted to the hospital on 02/25/25. Initial concerns about ACS were ruled out, and a CTA revealed small bilateral pulmonary emboli, which were also ruled out by cardiology. Blood cultures confirmed MSSA Staph Aureus bacteremia, and the patient was started on VANCOMYCIN and ZOSYN and subsequently de-escelated to CEFTRIAXONE based on sensitivty. CT imaging showed left mild to moderate hydronephrosis, and the patient was found to be retaining urine, requiring a Gutiérrez catheter. Kidney function was closely monitored, and home losartan was held due to JULIO. Incidental findings included a suspicious 17 mm right liver lesion and moderate thoracic spondylosis. His liver enzymes were uptrending, likely due to Rocephin, and outpatient follow-up was recommended. The patient was also found to have sinus tachycardia and mild leukocytosis. Repeat blood Cx persistently growing GPC despite adequate ABX coverage, although he remains afebrile and WBC normalized. At this point, there is no clear source of his GPC bactermia. TTE showed no evidence of vegetation. ID to evaluate on Saturday and decided if DUDLEY needs to be obtained. However, he is clinically improving. CT cervical spine was done today for neck pain no evidence of acute pathology other than moderate advanced degenerative disc disease and possible parotitis (but clinically he does not meet this). Currently we're repeating blood cultures. He will need PICC line placement for IV biotics once blood cultures negative. I?ve reviewed the note and agree with this assessment and plan, with the exceptions outlined above. I personally went over the labs, imaging, home medications, and prior records, and examined the patient. The case was also reviewed with the attending physician. Please note: this document was transcribed using voice recognition technology; minor inaccuracies may be present. Arron Albright DO PGY II Documentation for date of: 03/02/25 Subjective Subjective Interval history: Mr. 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 Patient stated on the morning of 02/23/25, he woke up with constant, pressure like, chest pain that was centrally located with radiation to his back and neck. This pain was made worse with deep inspiration. He had never experienced similar episode before. He informed his chest pain to his son, who took him to a clinic for check up the day after on 02/24/25. He reported he was given some medications from the clinic with minimal improvement of his chest pain, who prompted him to seek care in the ER today on 02/25/25. He denied any fever, nausea, chill, vomiting, cough, dysuria. He does not take any hormone pill. No recent long travel or history of TIA/stroke, or clot in the lung or legs. No unilateral leg swelling or hemoptysis. He was admitted for chest pain. 02/26/25: NAOE. Cardiology does not think patient has pulmonary embolism after reviewing patient's CTA Chest scan and physical examination/clinical presentation. Heparin drip was discontinued. Patient continue to be afebrile, VSS. WBC decreased to 16.5 today. Bcx grew GPC 2/2. Repeat blood culture ordered, and patient will continue vancomycin and zosyn and de-escalate after. Patient's CT abdomen scan revealed perinephric stranding, concerning for pyelonephritis despite negative UA. Urine cultured was ordered out of precaution. 02/27/25: Patient seen today at the bedside found awake, alert, orientedx3. No overnight events reported. States he feels much better compared to arrival. No new episodes of chest pain, shortness of breath noted. His back pain has improved as well. Vital signs and labs reviewed. Blood cultures grew gram positive cocci again 2/2, repeat blood cultures sent, original cultures grew staph aureus sensitive to most antibiotics. Antibiotic therapy de-escalated to ceftriaxone. He states no issues with voiding however after voiding bladder scan was done and patient was retaining ~600ccs, gutiérrez catheter ordered and renal ultrasound was ordered, considering on prior imaging was having some hydronephrosis. 02/28/25: NAOE. Bcx continues to grew GPC 2/2 resembling Staph. A. Repeat BCx ordered. Unlikely source from kidney. ID consulted, pending recs, if needed, cardiology may perform DUDLEY to look for vegetation. Patient was noted to have right ring finger subuncgual hematoma from accidentally hitting against a tree last week, may be the source of infection, however, does not appear to be tender to touch nor erythematous on exam. Patient also reports neck pain that is worse today, will order CT cervical with contrast to r/o any infection. Increased Rocephin 1g to 2g today. Uptrending transaminitis likely due to Rocephin. Renal US unremarkable. 03/01/25: NAOE. Bcx continues to grew GPC 1/[address] cervical revealed moderate to advanced degenerative disc disease C3-C4, C4-C5, C5-C6, C6- C7, likely contributing to patient's complaint of neck pain. Per ID, repeat blood culture tmr, if negative, patient can be sent home with 2 weeks of Rocephin 2g QD. Gabapentin added today to address patient's neck pain/chest pain, will reassess tmr. All images and work up at this point could not reveal the underlying cause of patient's chest pain/neck pain, but will continue to monitor closely. 03/02/25: NAOE. Repeat Bcx drawn this AM, pending result. Patient continues to complain of neck pain, worse with neck movement. Lidocaine patch x 1 given. Awaiting negative blood culture prior to D/C home with abx. Exam Vital Signs Temp Pulse Resp BP Pulse Ox O2 Del Method 97.9 F 86 16 142/88 H 95 Room Air 03/02/25 08:00 03/02/25 08:06 03/02/25 08:00 03/02/25 08:06 03/02/25 08:00 03/02/25 08:00 Narrative Exam General: Alert, oriented, in no acute distress. HEENT: Normocephalic, atraumatic. Neck: Supple, no JVD. Cardiovascular: Tachycardic. Sinus rhythm. No murmurs, rubs, or gallops. Respiratory: Clear to auscultation bilaterally. No wheezes, rales, or rhonchi. Normal respiratory effort. Abdomen: Soft, nontender, nondistended. No masses or organomegaly. Musculoskeletal: Full range of motion in all extremities. Neck stiffness. No meningeal signs. Skin: Warm, dry, intact. No rashes or lesions. Neurological: Alert, oriented x 3. Psychiatric: Calm, cooperative, appropriate mood and affect. Objective Labs 03/02/25 04:44 03/02/25 04:44 Labs: Laboratory Results - last 24 hr 03/02/25 04:44 WBC 9.4 RBC 3.50 L Hgb 10.4 L Hct 31.1 L MCV 89 MCH 29.7 MCHC 33.4 RDW Std Deviation 39.4 Plt Count 223 Neut % (Auto) 78 Lymph % (Auto) 12 [place] % (Auto) 9 Eos % (Auto) 0 Baso % (Auto) 0 Neut # (Auto) 7.3 Lymph # (Auto) 1.2 [place] # (Auto) 0.8 Eos # (Auto) 0.0 Baso # (Auto) 0.0 Immature Gran # (Auto) 0.08 H Absolute Nucleated RBC 0.00 Immature Gran % 1 H Nucleated RBC % 0 Sodium 136 Potassium 4.1 Chloride 103 Carbon Dioxide 22.2 Anion Gap 11 BUN 34 H Creatinine 1.7 H Estim Creat Clear Calc 31.0 L eGFR 41 L BUN/Creatinine Ratio 20 Glucose 212 H Calculated Osmolality 285 Calcium 8.5 Corrected Calcium 8.8 Phosphorus 3.8 Magnesium 2.1 Total Bilirubin 0.2 L AST 24 ALT 63 H Alkaline Phosphatase 221 H D Total Protein 7.0 Albumin 3.6 Globulin 3.4 Albumin/Globulin Ratio 1.1 L Hepatitis C Antibody Non Reactive ABG Interpretation ABG results: 02/25/25 09:17 VBG pH 7.36 VBG pCO2 47 VBG pO2 23 VBG Base Excess 1 Quality Measures Quality Measures none Advance care planning discussed with:: patient Assessment & Plan Assessment Current Active Medications: Generic Name Dose Route Start Last Admin Trade Name Freq PRN Reason Stop Dose Admin Acetaminophen 650 mg 02/25/25 23:47 03/02/25 03:56 Acetaminophen 325 Mg Tablet PO 03/27/25 23:46 650 mg Q6HR PRN Administration Fever > 100.4 or pain 1-3 Hydrocodone Bitart/Acetaminophen 1 tab 02/28/25 17:22 03/01/25 23:10 Hydrocodone/Apap 5/325 Tablet PO 03/05/25 17:21 1 tab Q6HR PRN Administration PAIN SCALE 4-10(Mod-Sev Amlodipine Besylate 5 mg 02/26/25 09:00 03/02/25 08:05 Amlodipine Besylate 5 Mg Tablet PO 03/28/25 08:59 5 mg QDAY LEATHA Administration Cyclobenzaprine HCl 5 mg 02/26/25 09:49 03/01/25 21:06 Cyclobenzaprine 5 Mg Tablet PO 03/28/25 09:48 5 mg TID PRN Administration MUSCLE SPASMS Dextrose 25 ml 02/25/25 12:11 Dextrose 50%-Water Inj 50 Ml Syringe IV 03/27/25 12:10 Q15MIN PRN BG 50-70 responsive npo pt Dextrose 50 ml 02/25/25 12:11 Dextrose 50%-Water Inj 50 Ml Syringe IV 03/27/25 12:10 Q15MIN PRN BG <50 OR BG <70 & pt unresponsive Docusate Sodium 100 mg 02/28/25 09:00 03/02/25 08:05 Docusate Sod 100 Mg Capsule PO 03/30/25 08:59 100 mg QDAY LEATHA Administration Protocol Gabapentin 300 mg 03/02/25 09:00 03/02/25 08:07 Gabapentin 300 Mg Capsule PO 04/01/25 08:59 300 mg QDAY LEATHA Administration Glucagon 1 mg 02/25/25 12:11 Glucagon Inj 1 Mg Vial IM Q15MIN PRN BG <70, and no IV access Heparin Sodium (Porcine) 5,000 unit 02/26/25 09:00 03/02/25 08:08 Heparin Sod Inj 5000 Unit/Ml Vial SC 03/12/25 08:59 5,000 unit BID LEATHA Administration Ceftriaxone Sodium 2 gm/ 50 mls @ 100 mls/hr 02/28/25 09:00 03/02/25 08:06 Sodium Chloride IV 03/07/25 08:59 100 mls/hr QDAY LEATHA Administration Insulin Degludec 20 unit 03/01/25 09:00 03/02/25 08:08 Insulin Degludec 5 Unit/0.05 Ml (Per 5 Units) SC 03/31/25 08:59 20 unit QDAY LEATHA Administration Insulin Human Lispro 0 unit 02/26/25 07:30 03/02/25 08:07 Insulin Lispro (Admelog) 1 Unit/0.01 Ml Unit SC 03/28/25 07:29 3 unit ACHS LEATHA Administration Protocol Levothyroxine Sodium 50 mcg 02/26/25 06:00 03/02/25 05:49 Levothyroxine Sodium 25 Mcg Tablet PO 03/28/25 05:59 50 mcg ACBR LEATHA Administration Lidocaine 1 patch 02/26/25 09:50 02/26/25 18:19 Lidocaine 5% 1 Patch TOP 03/28/25 09:49 1 patch UD PRN Administration back pain Lidocaine 1 patch 03/02/25 08:31 Lidocaine 5% 1 Patch TOP 03/02/25 08:32 X1 ONE Metoprolol Succinate 50 mg 03/01/25 09:00 03/02/25 08:06 Metoprolol Succinate Xl 25 Mg Tabcr PO 03/31/25 08:59 50 mg QDAY LEATHA Administration Pantoprazole Sodium 40 mg 03/01/25 12:15 03/02/25 08:05 Pantoprazole 40 Mg Tablet PO 03/31/25 12:14 40 mg BID LEATHA Administration Tamsulosin HCl 0.4 mg 02/27/25 14:45 03/02/25 08:05 Tamsulosin Hcl 0.4 Mg Capsule PO 03/29/25 14:44 0.4 mg QDAY LEATHA Administration Plan 74 years old Bengali spekaing male with history of hypothyroidism, hypertension, and diabetes type 2 who presented to ER on 02/25/25 for chest pain with radiation to the back and neck. He was admitted for chest pain. #MSSA Staph Aureus Bacteremia #Leukocytosis #Pyelonephritis - ruled out Blood cultures 2/2 GPC repeat as well GPC2/2 CXR negative for PNA Perinephric stranding noted on CT abdomen, with CVA tenderness Patient found to be retaining urine as well as hydronephrosis from prior imaging Vanc + Zosyn [02/25-02/27] - Bcx 02/25: Staph Aureus 2/2 - Bcx 02/26: GPC+ 2/2 -> Staph Aureus - Bcx 02/27: GPC+ 1/2 - Bcx 02/28: GPC+ 1/2 - Repeat Bcx ordered 03/01 - Ucx -> No growth - Continue Ceftriaxone 2g [02/28- - ID consulted, appreciate recs --> can d/c if Bcx negative with 2 weeks of oral rocephin 2g QD. - Cardiology consulted, appreciate recs -CT cervical w/ con --> no signs of infection, moderate DJD. #Degenerative disc disease of cervical spine #Moderate thoracic spondylosis Findings noted on CT cervical spine on 02/28/25. Moderate to advanced degenerative disc disease C3-C4, C4-C5, C5-C6, C6-C7. Also noted on CXR 02/25/25. - outpatient follow up and management - lidocaine patch PRN - gabapentin 300mg PO QD - MMPR #Hypertensive urgency-improving - Continue metoprolol succinate 50mg PO QD. - amlodipine 5mg qday - Hold home lorsartan in view of JULIO #ACS ruled out #Sinus tachycardia-resolved #Pulmonary embolism, small, bilateral lower lobes - ruled out Initial Troponin 0.025. EKG sinus tachy without ST abnormalities. CTA revealed bilateral small pulmonary embolic at lower lobes. US doppler LE negative for DVT. Cardiology does not think patient has PE after reviewing CTA Chest and physical examination, heparin discontinued per their recommendation. Repeat trop 0.024 #CKD IIIb #JULIO - ruled out #Left hydronephrosis, mild to moderate - ruled out Cr 1.8. BUN 32; ratio 17, wnl Patient possibly has underlying CKD IIIb Found to be retaining urine after voiding, around 600cc's - Renal US --> unremarkable, no hydronephrosis - Continue home lorsartan 25mg given hx of DM. - renal dose med, avoid nephrotoxin #Suspicious for 17 mm right lobe liver lesion #Transaminitis - downtrending Incidental finding on Chest CTA 02/25/25 - Transaminitis likely due to Rocephin - outpatient management and follow up Chronic problems: #Hypertenson #Insulin dependent Diabetes mellitus type2 #Hypothyroidism - amlodipine 5mg qday - metoprolol 50mg qday - losartan 25mg qday - levothyroxine 50mcg qday - Continue Insulin basal 20u qday - insulin sliding scale - hypoglycemia protocol Health maintenance Dispo: MSSA Bacteremia, pending Blood culture repeat DVT prophylaxis: HEPARIN GI prophylaxis: N/A Antibiotics: Ceftriaxone Bowel Regimen: Colace Diet: Carb consistent low Lines: Peripheral IV Code status: Full code Case discussed with my senior resident Dr. Albright Case discussed with my attending Dr. Manny Roach, PGY 1
[2025-03-02] MEDS: LIDOCAINE 5% 1 PATCH TOP (08:49)
[2025-03-02] MEDS: LOSARTAN POTASSIUM 25 MG TABLET PO (12:15)
[2025-03-02] MEDS: HYDROcodone/APAP 5/325 TABLET 1 TAB PO (22:56)
[2025-03-03] VITALS (14 sets, daily range): BP systolic 112–170; BP diastolic 68–99; PULSE 88–105; RESP 16–27; TEMP 36.3–37.9; O2SAT 95–97
--- NOTE | 2025-03-03 | XR_ITS ---
EXAMINATION: MR thoracic spine with intravenous contrast TECHNIQUE: MRI axial sagittal images post intravenous administration 5 cc gadolinium INDICATIONS: Extremity weakness neuropathic pain 3 days FINDINGS: Satisfactory alignment thoracic vertebral bodies Moderate diffuse thoracic disc narrowing No thoracic fracture No focal thoracic disc protrusion impinging upon the thoracic cord Postcontrast images demonstrate no abnormal osseous epidural or thoracic cord enhancement IMPRESSION:: No abnormal osseous epidural or thoracic cord enhancement No extra medullary lesion impinging upon the thoracic cord
[2025-03-03] MEDS: LEVOTHYROXINE SODIUM 25 MCG TABLET 50 MCG PO (05:37)
[2025-03-03 05:39] LABS: Basophils # (Auto) 0.0 Thou/mm3 (0.0-0.2); Basophils % (Auto) 0 % (0-2.5); Eosinophils # (Auto) 0.0 Thou/mm3 (0.0-0.5); Eosinophils % (Auto) 0 % (0-10); Hematocrit 33.5 % (41.0-53.0); Hemoglobin 11.1 g/dL (13.5-16.0); Immature Granulocytes Auto 0.07 Thou/mm3 (0.00-0.00); Lymphocytes # (Auto) 1.5 Thou/mm3 (1.0-4.8); Lymphocytes % (Auto) 13 % (10-50); Mean Corpuscular HGB Conc 33.1 g/dl (31.0-37.0); Mean Corpuscular Hemoglobin 29.2 pg (25.0-35.0); Mean Corpuscular Volume 88 fL (80-100); Monocytes # (Auto) 0.9 Thou/mm3 (0.0-0.8); Monocytes % (Auto) 8 % (0-12); Neutrophils # (Auto) 9.1 Thou/mm3 (1.8-7.7); Neutrophils % (Auto) 79 % (37-80); Nucleated Red Blood Cell # 0.00 Thou/mm3 (0.00-0.00); Nucleated Red Blood Cell % 0 /100 WBC (0); Platelet Count 294 Thou/mm3 (140-440); RDW Standard Deviation 39.5 fL (35.1-43.9); Red Blood Count 3.80 Miln/mm3 (4.50-5.90); White Blood Count 11.5 Thou/mm3 (3.8-10.6)
[2025-03-03 06:19] LABS: Alanine Aminotransferase 112 U/L (10-49); Albumin, Serum 4.1 gm/dL (3.4-4.8); Albumin/Globulin Ratio 1.2 (1.2-2.2); Alkaline Phosphatase 343 U/L (46-116); Anion Gap 12 (7-16); Aspartate Amino Transferase 59 U/L (0-34); BUN/Creatinine Ratio 19 Ratio (12-20); Bilirubin,Total 0.3 mg/dL (0.3-1.2); Blood Urea Nitrogen 32 mg/dL (9-23); Calcium 8.8 mg/dL (8.3-10.6); Calcium (Corrected) 8.8 mg/dL (8.5-10.1); Carbon Dioxide 23.2 mMol/L (20.0-31.0); Chloride 102 mMol/L (98-107); Creatinine (Component) 1.7 mg/dL (0.6-1.3); Estimated Creatinine Clearance 31.5 mL/min (>60); Globulin 3.3 gm/dL (2.3-3.5); Glucose 203 mg/dL (74-106); Magnesium 2.0 mg/dL (1.6-2.6); Osmolality,Calculated 286 (275-295); Phosphorous 3.7 mg/dL (2.4-5.1); Potassium 4.2 mMol/L (3.4-5.1); Sodium 137 mMol/L (136-145); Total Protein 7.4 gm/dL (5.7-8.2); eGFR 41 See Note
[2025-03-03] MEDS: INSULIN LISPRO (AdmeLOG) 1 UNIT/0.01 ML UNIT SC ×4 (07:40→22:22)
--- NOTE | 2025-03-03 09:06 | XR_ITS ---
MRI of the cervical spine during contrast infusion on 03/03/2025 at 1:24 p.m. Sagittal and axial images are obtained FINDINGS: No abnormalities are seen in the posterior fossa of the head. At C2-3 no significant abnormalities are seen in the spinal canal or right or left neuroforamina. At C3-4 there is a diffuse very prominent annular disc bulge which creates varying extrinsic compression on the the spinal cord which is compressed and deviated posteriorly. The neural foramen on the left is narrowed slightly by osteophyte formation in the posterior facet joint At C4-C5, again noted is a broad very significant posterior disc protrusion which markedly narrows the AP diameter of the spinal cord. There is mild to moderate narrowing of both right and left neuroforamina. It C5-C6 there is a diffuse broad-based disc bulge which markedly indents the anterior margin of the spinal cord in the midline, compressing the spinal cord. There is significant DJD narrowing the right neural foramen and the left neural foramen. At C6-C7 there is a mild there is moderate broad-based disc protrusion. This creates mild-moderate narrowing of the AP diameter of the spinal canal. Prominent DJD in the joint of Luschka and lateral facet joint create prominent narrowing of the right neuroforamen at this level. At C7-T1 there is very minimal first-degree spondylolisthesis IMPRESSION: 1. There is multilevel discogenic degenerative joint disease noted significantly involving the cervical spine Please see above discussion about the findings at each level, there is significant posterior displacement and narrowing of the spinal cord at several levels.
--- NOTE | 2025-03-03 09:08 | XR_ITS ---
EXAMINATION: MRI lumbar spine with intravenous contrast TECHNIQUE: Sagittal and axial MRI lumbar spine images post intravenous ministration 5 cc gadolinium Date and time: March 03, 2025, 1314 hours INDICATIONS: Extremity weakness back pain neuropathic pain beginning 3 days ago. FINDINGS: Satisfactory alignment lumbar vertebral bodies No lumbar fracture. Mild lumbar spondylosis Moderate disc narrowing L4-L5, L5-S1 No spondylolisthesis L5-S1 9 mm central lumbar disc bulge indenting the ventral margin thecal sac More cephalad levels demonstrate no focal lumbar disc protrusion No abnormal osseous epidural conus medullaris or cauda equina enhancement IMPRESSION: L5-S1 large, 9 mm, central lumbar disc bulge indenting the ventral margin thecal sac No abnormal osseous, epidural, conus medullaris or cauda equina enhancement
[2025-03-03] MEDS: METOPROLOL SUCCINATE XL 25 MG TABCR 50 MG PO (09:23)
[2025-03-03] MEDS: GABAPENTIN 300 MG CAPSULE PO (09:24)
[2025-03-03] MEDS: cefTRIAXone 2 GM in SODIUM CHLORIDE 0.9% (Popper) 50 ML IV (09:24)
[2025-03-03] MEDS: DOCUSATE SOD 100 MG CAPSULE PO (09:24)
[2025-03-03] MEDS: LOSARTAN POTASSIUM 25 MG TABLET PO (09:24)
[2025-03-03] MEDS: PANTOPRAZOLE 40 MG TABLET PO ×2 (09:24→22:13)
[2025-03-03] MEDS: TAMSULOSIN HCL 0.4 MG CAPSULE PO (09:24)
[2025-03-03] MEDS: HEPARIN SOD INJ 5000 UNIT/ML VIAL SC ×2 (09:25→22:14)
[2025-03-03] MEDS: INSULIN DEGLUDEC 5 UNIT/0.05 ML (PER 5 UNITS) 20 UNIT SC (09:26)
[2025-03-03] MEDS: HYDROcodone/APAP 5/325 TABLET 1 TAB PO ×2 (09:35→23:51)
--- NOTE | 2025-03-03 09:44 | XR_ITS ---
Examination: Ultrasound-guided needle placement right brachial vein. Dual-lumen central line placement (PICC line). Fluoroscopy AP chest, portable, single view Exam date and time: March 03, 2025, 1027 hours INDICATIONS: Need for long-term intravenous antibiotic therapy for bacteremia A timeout was completed verifying correct patient, procedure, site, positioning Informed consent provided Technique: The patient's site was prepped and draped in sterile fashion. Maximum Sterile Barrier Technique used including cap, mask, sterile gown, sterile gloves, and sterile full body drape. If ultrasound technique used: sterile gel and sterile probe covers. Hand Hygiene performed using proper scrub, soap and water, or alcohol-based hand rub. Site right portable apparatus utilized to confirm patency of the right brachial vein, utilizing ultrasonographic guidance successful 21-gauge needle puncture into the right brachial vein Ultrasound images recorded and stored. 5 cc 1% lidocaine administered for local anesthetic. Successful micropuncture with a 21-gauge needle is performed. 0.18 wire guide is then introduced into the SVC under fluoroscopic guidance. Dual-lumen catheter dilator is then introduced, followed by the catheter in the SVC and proper position under fluoroscopic guidance. Successful aspiration of blood and flushing with heparinized saline is then performed in the 2 venous limbs. The catheter sutured in place. Findings: Under fluoroscopy, the tip of the catheter is in good position in the vena cava. Portable chest x-ray, post line placement is ordered. Estimated blood loss 3 cc The patient tolerated the procedure well and was in stable and satisfactory condition at completion of the procedure Impression: Successful ultrasound-guided needle placement right brachial vein Successful placement of dual lumen central line, percutaneous Fluoroscopy 0.1-minute radiation dose 0.50 mGy 1 spot fluoroscopic chest film. AP chest completion procedure demonstrates satisfactory position central line. May use central line.
[2025-03-03] MEDS: LIDOCAINE INJ PF 1% 30 ML VIAL INFL (11:05)
--- NOTE | 2025-03-03 11:46 | ESPR_ITS ---
<Statement entered by Ariana Bryant MD - 03/08/25 14:33> I reviewed above note and agree with findings and plans. I have also personally examined the patient with medicine team and went over assessment and plan with medical team including audit intern and resident physician. <Statement entered by Arron Albright MD - 03/03/25 18:35> In summary: A 74-year-old male with a history of hypothyroidism, hypertension, type 2 diabetes, and a recent chest pain episode was admitted to the hospital on 02/25/25. Initial concerns about ACS were ruled out, and a CTA revealed small bilateral pulmonary emboli, which were also ruled out by cardiology. Blood cultures confirmed MSSA Staph Aureus bacteremia, and the patient was started on VANCOMYCIN and ZOSYN and subsequently de-escelated to CEFTRIAXONE based on sensitivty. CT imaging showed left mild to moderate hydronephrosis, and the patient was found to be retaining urine, requiring a Gutiérrez catheter. Kidney function was closely monitored, and home losartan was held due to JULIO. Incidental findings included a suspicious 17 mm right liver lesion and moderate thoracic spondylosis. His liver enzymes were uptrending, likely due to Rocephin, and outpatient follow-up was recommended. The patient was also found to have sinus tachycardia and mild leukocytosis. Repeat blood Cx persistently growing GPC despite adequate ABX coverage, although he remains afebrile and WBC normalized. At this point, there is no clear source of his GPC bactermia. TTE showed no evidence of vegetation. ID to evaluate on Saturday and decided if DUDLEY needs to be obtained. However, he is clinically improving. CT cervical spine was done today for neck pain no evidence of acute pathology other than moderate advanced degenerative disc disease and possible parotitis (but clinically he does not meet this). Today, cervical MRI showed significant multilevel spinal cord compression from C3 to C6 caused by large disc bulges and protrusions; with spinal cord is physically displaced, indented, and markedly narrowed. Additionally, degenerative wear and bone spurs are narrowing the pathways for the nerves exiting toward the arms. Lumbar MRI showed L5-S1 large, 9 mm, central lumbar disc bulge indenting the ventral margin thecal sac. While Thoracic MRI showed no acute findings. Currently we're repeating blood cultures and PICC is placed for IV abx for bactermia. Repeat blood culture pending. I?ve reviewed the note and agree with this assessment and plan, with the exceptions outlined above. I personally went over the labs, imaging, home medications, and prior records, and examined the patient. The case was also reviewed with the attending physician. Please note: this document was transcribed using voice recognition technology; minor inaccuracies may be present. Arron Albright DO PGY II Documentation for date of: 03/03/25 Subjective Subjective Interval history: Mr. Duncan is a 74 years old uruguayan spekaing male with history of hypothyroidism, hypertension, and diabetes type 2 who presented to ER on 02/25/25 for chest pain with radiation to the back and neck. Patient stated on the morning of 02/23/25, he woke up with constant, pressure like, chest pain that was centrally located with radiation to his back and neck. This pain was made worse with deep inspiration. He had never experienced similar episode before. He informed his chest pain to his son, who took him to a clinic for check up the day after on 02/24/25. He reported he was given some medications from the clinic with minimal improvement of his chest pain, who prompted him to seek care in the ER today on 02/25/25. He denied any fever, nausea, chill, vomiting, cough, dysuria. He does not take any hormone pill. No recent long travel or history of TIA/stroke, or clot in the lung or legs. No unilateral leg swelling or hemoptysis. He was admitted for chest pain. 02/26/25: NAOE. Cardiology does not think patient has pulmonary embolism after reviewing patient's CTA Chest scan and physical examination/clinical presentation. Heparin drip was discontinued. Patient continue to be afebrile, VSS. WBC decreased to 16.5 today. Bcx grew GPC 2/2. Repeat blood culture ordered, and patient will continue vancomycin and zosyn and de-escalate after. Patient's CT abdomen scan revealed perinephric stranding, concerning for pyelonephritis despite negative UA. Urine cultured was ordered out of precaution. 02/27/25: Patient seen today at the bedside found awake, alert, orientedx3. No overnight events reported. States he feels much better compared to arrival. No new episodes of chest pain, shortness of breath noted. His back pain has improved as well. Vital signs and labs reviewed. Blood cultures grew gram positive cocci again 2/2, repeat blood cultures sent, original cultures grew staph aureus sensitive to most antibiotics. Antibiotic therapy de-escalated to ceftriaxone. He states no issues with voiding however after voiding bladder scan was done and patient was retaining ~600ccs, gutiérrez catheter ordered and renal ultrasound was ordered, considering on prior imaging was having some hydronephrosis. 02/28/25: NAOE. Bcx continues to grew GPC 2/2 resembling Staph. A. Repeat BCx ordered. Unlikely source from kidney. ID consulted, pending recs, if needed, cardiology may perform DUDLEY to look for vegetation. Patient was noted to have right ring finger subuncgual hematoma from accidentally hitting against a tree last week, may be the source of infection, however, does not appear to be tender to touch nor erythematous on exam. Patient also reports neck pain that is worse today, will order CT cervical with contrast to r/o any infection. Increased Rocephin 1g to 2g today. Uptrending transaminitis likely due to Rocephin. Renal US unremarkable. 03/01/25: NAOE. Bcx continues to grew GPC 1/[address] cervical revealed moderate to advanced degenerative disc disease C3-C4, C4-C5, C5-C6, C6- C7, likely contributing to patient's complaint of neck pain. Per ID, repeat blood culture tmr, if negative, patient can be sent home with 2 weeks of Rocephin 2g QD. Gabapentin added today to address patient's neck pain/chest pain, will reassess tmr. All images and work up at this point could not reveal the underlying cause of patient's chest pain/neck pain, but will continue to monitor closely. 03/02/25: NAOE. Repeat Bcx drawn this AM, pending result. Patient continues to complain of neck pain, worse with neck movement. Lidocaine patch x 1 given. Awaiting negative blood culture prior to D/C home with abx. 03/03/25: NAOE. Patient reports worsening of upper extremity weakness, worse on R arm now. Sensation intact, denies numbness. Prior imaging reveal moderate spondylosis to cervical spine. Will proceed with MRI cervical, thoracic, and lumbar w/ contrast. Bcx 2/2 negative for 24H. PICC line inserted today. Likely dc tmr with IV abx if Bcx negative for 48H. Exam Vital Signs Temp Pulse Resp BP Pulse Ox O2 Del Method 97.3 F 95 21 H 143/82 H 97 Room Air 03/03/25 07:26 03/03/25 11:19 03/03/25 11:19 03/03/25 09:24 03/03/25 11:19 03/03/25 11:19 Narrative Exam General: Alert, oriented, in no acute distress. HEENT: Normocephalic, atraumatic. Neck: Supple, no JVD. +Neck pain, limited ROM. No meningeal signs. Cardiovascular: Tachycardic. Sinus rhythm. No murmurs, rubs, or gallops. Respiratory: Clear to auscultation bilaterally. No wheezes, rales, or rhonchi. Normal respiratory effort. Abdomen: Soft, nontender, nondistended. No masses or organomegaly. Musculoskeletal: Full range of motion in all extremities. Upper extremity weakness. 2/5 Strength. Skin: Warm, dry, intact. No rashes or lesions. Neurological: Alert, oriented x 3. No focal neurodeficit. Sensation intact. Psychiatric: Calm, cooperative, appropriate mood and affect. Objective Labs 03/03/25 04:20 03/03/25 04:20 Labs: Laboratory Results - last 24 hr 03/03/25 04:20 WBC 11.5 H RBC 3.80 L Hgb 11.1 L Hct 33.5 L MCV 88 MCH 29.2 MCHC 33.1 RDW Std Deviation 39.5 Plt Count 294 D Neut % (Auto) 79 Lymph % (Auto) 13 [place] % (Auto) 8 Eos % (Auto) 0 Baso % (Auto) 0 Neut # (Auto) 9.1 H Lymph # (Auto) 1.5 [place] # (Auto) 0.9 H Eos # (Auto) 0.0 Baso # (Auto) 0.0 Immature Gran # (Auto) 0.07 H Absolute Nucleated RBC 0.00 Immature Gran % 1 H Nucleated RBC % 0 Sodium 137 Potassium 4.2 Chloride 102 Carbon Dioxide 23.2 Anion Gap 12 BUN 32 H Creatinine 1.7 H Estim Creat Clear Calc 31.5 L eGFR 41 L BUN/Creatinine Ratio 19 Glucose 203 H Calculated Osmolality 286 Calcium 8.8 Corrected Calcium 8.8 Phosphorus 3.7 Magnesium 2.0 Total Bilirubin 0.3 AST 59 H ALT 112 H Alkaline Phosphatase 343 H D Total Protein 7.4 Albumin 4.1 D Globulin 3.3 Albumin/Globulin Ratio 1.2 ABG Interpretation ABG results: 02/25/25 09:17 VBG pH 7.36 VBG pCO2 47 VBG pO2 23 VBG Base Excess 1 Quality Measures Quality Measures none Advance care planning discussed with:: patient Assessment & Plan Assessment Current Active Medications: Generic Name Dose Route Start Last Admin Trade Name Freq PRN Reason Stop Dose Admin Acetaminophen 650 mg 02/25/25 23:47 03/02/25 03:56 Acetaminophen 325 Mg Tablet PO 03/27/25 23:46 650 mg Q6HR PRN Administration Fever > 100.4 or pain 1-3 Hydrocodone Bitart/Acetaminophen 1 tab 02/28/25 17:22 03/03/25 09:35 Hydrocodone/Apap 5/325 Tablet PO 03/05/25 17:21 1 tab Q6HR PRN Administration PAIN SCALE 4-10(Mod-Sev Amlodipine Besylate 5 mg 02/26/25 09:00 03/03/25 09:24 Amlodipine Besylate 5 Mg Tablet PO 03/28/25 08:59 5 mg QDAY LEATHA Administration Cyclobenzaprine HCl 5 mg 02/26/25 09:49 03/01/25 21:06 Cyclobenzaprine 5 Mg Tablet PO 03/28/25 09:48 5 mg TID PRN Administration MUSCLE SPASMS Dextrose 25 ml 02/25/25 12:11 Dextrose 50%-Water Inj 50 Ml Syringe IV 03/27/25 12:10 Q15MIN PRN BG 50-70 responsive npo pt Dextrose 50 ml 02/25/25 12:11 Dextrose 50%-Water Inj 50 Ml Syringe IV 03/27/25 12:10 Q15MIN PRN BG <50 OR BG <70 & pt unresponsive Docusate Sodium 100 mg 02/28/25 09:00 03/03/25 09:24 Docusate Sod 100 Mg Capsule PO 03/30/25 08:59 100 mg QDAY LEATHA Administration Protocol Gabapentin 300 mg 03/02/25 09:00 03/03/25 09:24 Gabapentin 300 Mg Capsule PO 04/01/25 08:59 300 mg QDAY LEATHA Administration Glucagon 1 mg 02/25/25 12:11 Glucagon Inj 1 Mg Vial IM Q15MIN PRN BG <70, and no IV access Heparin Sodium (Porcine) 5,000 unit 02/26/25 09:00 03/03/25 09:25 Heparin Sod Inj 5000 Unit/Ml Vial SC 03/12/25 08:59 5,000 unit BID LEATHA Administration Ceftriaxone Sodium 2 gm/ 50 mls @ 100 mls/hr 02/28/25 09:00 03/03/25 09:24 Sodium Chloride IV 03/07/25 08:59 100 mls/hr QDAY LEATHA Administration Insulin Degludec 20 unit 03/01/25 09:00 03/03/25 09:26 Insulin Degludec 5 Unit/0.05 Ml (Per 5 Units) SC 03/31/25 08:59 20 unit QDAY LEATHA Administration Insulin Human Lispro 0 unit 02/26/25 07:30 03/03/25 07:40 Insulin Lispro (Admelog) 1 Unit/0.01 Ml Unit SC 03/28/25 07:29 2 unit ACHS LEATHA Administration Protocol Labetalol HCl 10 mg 03/02/25 11:54 Labetalol Inj 5 Mg/Ml Vial 4 Ml IVP 04/01/25 11:53 Q12H PRN SBP > 180 or DBP > 110 Levothyroxine Sodium 50 mcg 02/26/25 06:00 03/03/25 05:37 Levothyroxine Sodium 25 Mcg Tablet PO 03/28/25 05:59 50 mcg ACBR LEATHA Administration Lidocaine 1 patch 02/26/25 09:50 02/26/25 18:19 Lidocaine 5% 1 Patch TOP 03/28/25 09:49 1 patch UD PRN Administration back pain Losartan Potassium 25 mg 03/02/25 12:00 03/03/25 09:24 Losartan Potassium 25 Mg Tablet PO 04/01/25 11:59 25 mg DAILY LEATHA Administration Metoprolol Succinate 50 mg 03/01/25 09:00 03/03/25 09:23 Metoprolol Succinate Xl 25 Mg Tabcr PO 03/31/25 08:59 50 mg QDAY LEATHA Administration Pantoprazole Sodium 40 mg 03/01/25 12:15 03/03/25 09:24 Pantoprazole 40 Mg Tablet PO 03/31/25 12:14 40 mg BID LEATHA Administration Tamsulosin HCl 0.4 mg 02/27/25 14:45 03/03/25 09:24 Tamsulosin Hcl 0.4 Mg Capsule PO 03/29/25 14:44 0.4 mg QDAY LEATHA Administration Plan 74 years old Hungarian spekaing male with history of hypothyroidism, hypertension, and diabetes type 2 who presented to ER on 02/25/25 for chest pain with radiation to the back and neck. He was admitted for chest pain. #MSSA Staph Aureus Bacteremia #Leukocytosis #Pyelonephritis - ruled out Blood cultures 2/2 GPC repeat as well GPC2/ CXR negative for PNA Perinephric stranding noted on CT abdomen, with CVA tenderness Patient found to be retaining urine as well as hydronephrosis from prior imaging Vanc + Zosyn [02/25-02/27] - Bcx 02/25: Staph Aureus 2/2 - Bcx 02/26: GPC+ 2/2 -> Staph Aureus - Bcx 02/27: GPC+ 1/2 - Bcx 02/28: GPC+ 1/2 - Bcx 03/02: NGTD 24H. - Ucx -> No growth - Continue Ceftriaxone 2g [02/28- - PICC line inserted 03/03/25. - ID consulted, appreciate recs --> can d/c if Bcx negative with 2 weeks of IV rocephin 2g QD. - Cardiology consulted, appreciate recs -CT cervical w/ con --> no signs of infection, moderate DJD. #Degenerative disc disease of cervical spine #Moderate thoracic spondylosis Findings noted on CT cervical spine on 02/28/25. Moderate to advanced degenerative disc disease C3-C4, C4-C5, C5-C6, C6-C7. Also noted on CXR 02/25/25. - outpatient follow up and management - lidocaine patch PRN - gabapentin 300mg PO QD - MMPR - MRI Cervical, thoracic, and lumbar ordered 03/03/25 due to worsening of neck pain/weakness. #Hypertensive urgency-improving - Continue metoprolol succinate 50mg PO QD. - amlodipine 5mg qday - Hold home lorsartan in view of JULIO #ACS ruled out #Sinus tachycardia-resolved #Pulmonary embolism, small, bilateral lower lobes - ruled out Initial Troponin 0.025. EKG sinus tachy without ST abnormalities. CTA revealed bilateral small pulmonary embolic at lower lobes. US doppler LE negative for DVT. Cardiology does not think patient has PE after reviewing CTA Chest and physical examination, heparin discontinued per their recommendation. Repeat trop 0.024 #CKD IIIb #JULIO - ruled out #Left hydronephrosis, mild to moderate - ruled out Cr 1.8. BUN 32; ratio 17, wnl Patient possibly has underlying CKD IIIb Found to be retaining urine after voiding, around 600cc's - Renal US --> unremarkable, no hydronephrosis - Continue home lorsartan 25mg given hx of DM. - renal dose med, avoid nephrotoxin #Suspicious for 17 mm right lobe liver lesion #Transaminitis - downtrending Incidental finding on Chest CTA 02/25/25 - Transaminitis likely due to Rocephin - outpatient management and follow up Chronic problems: #Hypertenson #Insulin dependent Diabetes mellitus type2 #Hypothyroidism - amlodipine 5mg qday - metoprolol 50mg qday - losartan 25mg qday - levothyroxine 50mcg qday - Continue Insulin basal 20u qday - insulin sliding scale - hypoglycemia protocol Health maintenance Dispo: MSSA Bacteremia, pending Blood culture repeat DVT prophylaxis: HEPARIN GI prophylaxis: N/A Antibiotics: Ceftriaxone Bowel Regimen: Colace Diet: Carb consistent low Lines: Peripheral IV Code status: Full code Case discussed with my senior resident Dr. Albright Case discussed with my attending Dr. Manny Roach, DO PGY 1
--- NOTE | 2025-03-03 11:49 | ESPR_ITS ---
Subjective Subjective Interval history: creat static. on rocephin for bacteremia with ox s staph bc seem likely to be neg now. echo neg Exam Vital Signs Temp Pulse Resp BP Pulse Ox O2 Del Method 97.3 F 95 21 H 143/82 H 97 Room Air 03/03/25 07:26 03/03/25 11:19 03/03/25 11:19 03/03/25 09:24 03/03/25 11:19 03/03/25 11:19 Narrative Exam limited review today Objective - Internal Medicine Labs 03/03/25 04:20 03/03/25 04:20 Labs: Laboratory Results - last 24 hr 03/03/25 04:20 WBC 11.5 H RBC 3.80 L Hgb 11.1 L Hct 33.5 L MCV 88 MCH 29.2 MCHC 33.1 RDW Std Deviation 39.5 Plt Count 294 D Neut % (Auto) 79 Lymph % (Auto) 13 [place] % (Auto) 8 Eos % (Auto) 0 Baso % (Auto) 0 Neut # (Auto) 9.1 H Lymph # (Auto) 1.5 [place] # (Auto) 0.9 H Eos # (Auto) 0.0 Baso # (Auto) 0.0 Immature Gran # (Auto) 0.07 H Absolute Nucleated RBC 0.00 Immature Gran % 1 H Nucleated RBC % 0 Sodium 137 Potassium 4.2 Chloride 102 Carbon Dioxide 23.2 Anion Gap 12 BUN 32 H Creatinine 1.7 H Estim Creat Clear Calc 31.5 L eGFR 41 L BUN/Creatinine Ratio 19 Glucose 203 H Calculated Osmolality 286 Calcium 8.8 Corrected Calcium 8.8 Phosphorus 3.7 Magnesium 2.0 Total Bilirubin 0.3 AST 59 H ALT 112 H Alkaline Phosphatase 343 H D Total Protein 7.4 Albumin 4.1 D Globulin 3.3 Albumin/Globulin Ratio 1.2 ABG Interpretation ABG results: 02/25/25 09:17 VBG pH 7.36 VBG pCO2 47 VBG pO2 23 VBG Base Excess 1 Assessment & Plan A&P Narrative staph in bc. pe htn dm II a1c 9.4 noted. hypothroidism will get more bc in am and see again wed. likely to need at least 2 weeks rx from first neg bc, so if bc from 03/02 stay neg then rx will be from 03/02-03/16 with rocephin 2 gm/day iv even though he is here for a PE. I can not see him as an outpt. please arrange weekly cbc, renal penel and esr on rx. control dm. a1c of 9.4 is not good enough. will see saturday if more bc pos but likely to need solomon then. Time Spent With Patient Time: Total time spent is greater than 50% in coordination of care (as documented) at patient's floor/unit and/or counseling patient:
--- NOTE | 2025-03-03 15:23 | PC.SS ---
Addendum entered by Lizzeth Dave 03/03/25 15:35: Pt does not possess a PCP, therefore unable to do HH. SS went tospeak with pt and RNCarmen in regards to SNF for IV ABX until Mar 16.. Pt is in agreement and has no preference. Pt wishes for nephew to decide where they wish for him to go for short term rehab for IV ABX Original Note: Rounding: Pending PICCLine, MRI, DC plan home with HH for IV ABX
--- NOTE | 2025-03-03 15:43 | PC.SS ---
SNF referral submitted pending responses
--- NOTE | 2025-03-03 15:56 | PC.SS ---
MICHAEL LVL 1 completed and downloaded
[2025-03-04] VITALS (11 sets, daily range): BP systolic 72–130; BP diastolic 43–76; PULSE 66–92; RESP 13–23; TEMP 36.6–37.4; O2SAT 92–100
[2025-03-04 05:34] LABS: Basophils # (Auto) 0.0 Thou/mm3 (0.0-0.2); Basophils % (Auto) 0 % (0-2.5); Eosinophils # (Auto) 0.0 Thou/mm3 (0.0-0.5); Eosinophils % (Auto) 0 % (0-10); Hematocrit 29.6 % (41.0-53.0); Hemoglobin 9.6 g/dL (13.5-16.0); Immature Granulocytes Auto 0.09 Thou/mm3 (0.00-0.00); Lymphocytes # (Auto) 1.7 Thou/mm3 (1.0-4.8); Lymphocytes % (Auto) 15 % (10-50); Mean Corpuscular HGB Conc 32.4 g/dl (31.0-37.0); Mean Corpuscular Hemoglobin 29.2 pg (25.0-35.0); Mean Corpuscular Volume 90 fL (80-100); Monocytes # (Auto) 1.0 Thou/mm3 (0.0-0.8); Monocytes % (Auto) 9 % (0-12); Neutrophils # (Auto) 8.7 Thou/mm3 (1.8-7.7); Neutrophils % (Auto) 75 % (37-80); Nucleated Red Blood Cell # 0.00 Thou/mm3 (0.00-0.00); Nucleated Red Blood Cell % 0 /100 WBC (0); Platelet Count 359 Thou/mm3 (140-440); RDW Standard Deviation 40.8 fL (35.1-43.9); Red Blood Count 3.29 Miln/mm3 (4.50-5.90); White Blood Count 11.5 Thou/mm3 (3.8-10.6)
[2025-03-04 06:14] LABS: Alanine Aminotransferase 71 U/L (10-49); Albumin, Serum 3.9 gm/dL (3.4-4.8); Albumin/Globulin Ratio 1.2 (1.2-2.2); Alkaline Phosphatase 269 U/L (46-116); Anion Gap 11 (7-16); Aspartate Amino Transferase 28 U/L (0-34); BUN/Creatinine Ratio 18 Ratio (12-20); Bilirubin,Total 0.3 mg/dL (0.3-1.2); Blood Urea Nitrogen 33 mg/dL (9-23); Calcium 8.4 mg/dL (8.3-10.6); Calcium (Corrected) 8.5 mg/dL (8.5-10.1); Carbon Dioxide 24.4 mMol/L (20.0-31.0); Chloride 103 mMol/L (98-107); Creatinine (Component) 1.8 mg/dL (0.6-1.3); Estimated Creatinine Clearance 29.7 mL/min (>60); Globulin 3.2 gm/dL (2.3-3.5); Glucose 148 mg/dL (74-106); Magnesium 2.2 mg/dL (1.6-2.6); Osmolality,Calculated 285 (275-295); Phosphorous 3.5 mg/dL (2.4-5.1); Potassium 4.3 mMol/L (3.4-5.1); Sodium 138 mMol/L (136-145); Total Protein 7.1 gm/dL (5.7-8.2); eGFR 39 See Note
[2025-03-04] MEDS: HYDROcodone/APAP 5/325 TABLET 1 TAB PO (06:37)
[2025-03-04] MEDS: LEVOTHYROXINE SODIUM 25 MCG TABLET 50 MCG PO (06:37)
[2025-03-04] MEDS: HEPARIN SOD INJ 5000 UNIT/ML VIAL SC (08:46)
[2025-03-04] MEDS: METOPROLOL SUCCINATE XL 25 MG TABCR 50 MG PO (08:47)
[2025-03-04] MEDS: TAMSULOSIN HCL 0.4 MG CAPSULE PO (08:47)
[2025-03-04] MEDS: PANTOPRAZOLE 40 MG TABLET PO (08:48)
[2025-03-04] MEDS: GABAPENTIN 300 MG CAPSULE PO (08:48)
[2025-03-04] MEDS: LOSARTAN POTASSIUM 25 MG TABLET PO (08:48)
[2025-03-04] MEDS: DOCUSATE SOD 100 MG CAPSULE PO (08:48)
[2025-03-04] MEDS: INSULIN DEGLUDEC 5 UNIT/0.05 ML (PER 5 UNITS) 20 UNIT SC (08:49)
[2025-03-04] MEDS: cefTRIAXone 2 GM in SODIUM CHLORIDE 0.9% (Popper) 50 ML IV (08:49)
--- NOTE | 2025-03-04 09:37 | ESPR_ITS ---
<Statement entered by Ariana Bryant MD - 03/08/25 14:33> I reviewed above note and agree with findings and plans. I have also personally examined the patient with medicine team and went over assessment and plan with medical team including mechanical engineering intern and resident physician. <Statement entered by Arron Albright MD - 03/04/25 10:41> In summary: A 74-year-old male with a history of hypothyroidism, hypertension, type 2 diabetes, and a recent chest pain episode was admitted to the hospital on 02/25/25. Initial concerns about ACS were ruled out, and a CTA revealed small bilateral pulmonary emboli, which were also ruled out by cardiology. Blood cultures confirmed MSSA Staph Aureus bacteremia, and the patient was started on VANCOMYCIN and ZOSYN and subsequently de-escelated to CEFTRIAXONE based on sensitivty. CT imaging showed left mild to moderate hydronephrosis, and the patient was found to be retaining urine, requiring a Gutiérrez catheter. Kidney function was closely monitored, and home losartan was held due to JULIO. Incidental findings included a suspicious 17 mm right liver lesion and moderate thoracic spondylosis. His liver enzymes were uptrending, likely due to Rocephin, and outpatient follow-up was recommended. The patient was also found to have sinus tachycardia and mild leukocytosis. Repeat blood Cx persistently growing GPC despite adequate ABX coverage, although he remains afebrile and WBC normalized. At this point, there is no clear source of his GPC bactermia. TTE showed no evidence of vegetation. ID on board. Repeat blood Cx negative at 48 hours. PICC line in for outpatient CEFTRIAXONE until Mar [address] cervical spine was done today for neck pain no evidence of acute pathology other than moderate advanced degenerative disc disease and possible parotitis (but clinically he does not meet this). Today, cervical MRI showed significant multilevel spinal cord compression from C3 to C6 caused by large disc bulges and protrusions; with spinal cord is physically displaced, indented, and markedly narrowed. Additionally, degenerative wear and bone spurs are narrowing the pathways for the nerves exiting toward the arms. Lumbar MRI showed L5-S1 large, 9 mm, central lumbar disc bulge indenting the ventral margin thecal sac. While Thoracic MRI showed no acute findings. Currently pending transfer for neurosurgery given worsening UE weakness. I?ve reviewed the note and agree with this assessment and plan, with the exceptions outlined above. I personally went over the labs, imaging, home medications, and prior records, and examined the patient. The case was also reviewed with the attending physician. Please note: this document was transcribed using voice recognition technology; minor inaccuracies may be present. Arron Albright DO PGY II Documentation for date of: 03/04/25 Subjective Subjective Interval history: Mr. Duncan is a 74 years old central african spekaing male with history of hypothyroidism, hypertension, and diabetes type 2 who presented to ER on 02/25/25 for chest pain with radiation to the back and neck. Patient stated on the morning of 02/23/25, he woke up with constant, pressure like, chest pain that was centrally located with radiation to his back and neck. This pain was made worse with deep inspiration. He had never experienced similar episode before. He informed his chest pain to his son, who took him to a clinic for check up the day after on 02/24/25. He reported he was given some medications from the clinic with minimal improvement of his chest pain, who prompted him to seek care in the ER today on 02/25/25. He denied any fever, nausea, chill, vomiting, cough, dysuria. He does not take any hormone pill. No recent long travel or history of TIA/stroke, or clot in the lung or legs. No unilateral leg swelling or hemoptysis. He was admitted for chest pain. 02/26/25: NAOE. Cardiology does not think patient has pulmonary embolism after reviewing patient's CTA Chest scan and physical examination/clinical presentation. Heparin drip was discontinued. Patient continue to be afebrile, VSS. WBC decreased to 16.5 today. Bcx grew GPC 2/2. Repeat blood culture ordered, and patient will continue vancomycin and zosyn and de-escalate after. Patient's CT abdomen scan revealed perinephric stranding, concerning for pyelonephritis despite negative UA. Urine cultured was ordered out of precaution. 02/27/25: Patient seen today at the bedside found awake, alert, orientedx3. No overnight events reported. States he feels much better compared to arrival. No new episodes of chest pain, shortness of breath noted. His back pain has improved as well. Vital signs and labs reviewed. Blood cultures grew gram positive cocci again 2/2, repeat blood cultures sent, original cultures grew staph aureus sensitive to most antibiotics. Antibiotic therapy de-escalated to ceftriaxone. He states no issues with voiding however after voiding bladder scan was done and patient was retaining ~600ccs, gutiérrez catheter ordered and renal ultrasound was ordered, considering on prior imaging was having some hydronephrosis. 02/28/25: NAOE. Bcx continues to grew GPC 2/2 resembling Staph. A. Repeat BCx ordered. Unlikely source from kidney. ID consulted, pending recs, if needed, cardiology may perform DUDLEY to look for vegetation. Patient was noted to have right ring finger subuncgual hematoma from accidentally hitting against a tree last week, may be the source of infection, however, does not appear to be tender to touch nor erythematous on exam. Patient also reports neck pain that is worse today, will order CT cervical with contrast to r/o any infection. Increased Rocephin 1g to 2g today. Uptrending transaminitis likely due to Rocephin. Renal US unremarkable. 03/01/25: NAOE. Bcx continues to grew GPC 1/[address] cervical revealed moderate to advanced degenerative disc disease C3-C4, C4-C5, C5-C6, C6- C7, likely contributing to patient's complaint of neck pain. Per ID, repeat blood culture tmr, if negative, patient can be sent home with 2 weeks of Rocephin 2g QD. Gabapentin added today to address patient's neck pain/chest pain, will reassess tmr. All images and work up at this point could not reveal the underlying cause of patient's chest pain/neck pain, but will continue to monitor closely. 03/02/25: NAOE. Repeat Bcx drawn this AM, pending result. Patient continues to complain of neck pain, worse with neck movement. Lidocaine patch x 1 given. Awaiting negative blood culture prior to D/C home with abx. 03/03/25: NAOE. Patient reports worsening of upper extremity weakness, worse on R arm now. Sensation intact, denies numbness. Prior imaging reveal moderate spondylosis to cervical spine. Will proceed with MRI cervical, thoracic, and lumbar w/ contrast. Bcx 2/2 negative for 24H. PICC line inserted today. Likely dc tmr with IV abx if Bcx negative for 48H. 03/04/25: NAOE. MRI cervical spine from yesterday revealed C3-4 extrinsic compression on the spinal cord, C4-C5 significant posterior disc protrusion with spinal cord stenosis, and C5-6 significant DJD with disc bulging compressing the spinal cord. Patient was seen and examined this morning at bedside. He ahd a soft c-collar in place, and was talking and ambulatory, however, now complains of numbness on bilateral UE on top of the weakness he experienced yesterday. A transfer to high level of care for neurosurgery was initiated, awaiting response. At approximately 12:35 this AM, a rapid response was called for acute hypotension. Please see rapid response note for further details. Upon my initial assessment, patient was found hypotensive with SBP of mid 70s. He was laying flat in bed with chief complaint of paralysis and parenthesis from neck down. Given his symptoms are acute onset, a stroke alert was initiated. 1L bolus was given with pressure bag. Patient was brought down to the CT scanner with spinal precaution in place. Tele-neurologist reviewed the initial CT head, and did not think his symptoms are due to stroke, likely 2/2 to hypotension. Patient was then taken up to ICU where a rigid collar was applied. He was started on phenylephine drip to suppor this blood pressure, a-line placed. Family updated at bedside regarding patient's current clinical status and I had a [id number] discussion with them regarding the need for transfer to higher level of care for neurosurgery evaluation. Given patient's acute onset of paralysis and parenthesis from neck down, the ICU and hospitalist team were worried about his airway as he had a spinal cord compression at the level of C3-4. Please see physical exam below for neurological findings. The need for intubation was discussed with patient with a ball mill mixer and nurse at bedside, patient is agreeable and stated to do anything necessary to stabilize him for transfer. All questions and concerns addressed, and patient himself nor the family members had any further question at this point. Patient is now under care of the ICU team. Exam Vital Signs Temp Pulse Resp BP Pulse Ox O2 Del Method 97.8 F 82 19 103/62 96 Room Air 03/04/25 08:00 03/04/25 08:48 03/04/25 08:00 03/04/25 08:48 03/04/25 08:00 03/04/25 08:00 Narrative Exam General: Soft spoken, hypotensive, diaphoretic at the face. He is alert, but does not know his location. HEENT: Normocephalic, atraumatic. Pupils equal, round, and reactive to light. Extraocular movements intact. Oropharynx clear, no lesions or erythema. Neck: Supple, no JVD, no lymphadenopathy. Rigid collar in place with spinal precaution. Cardiovascular: Regular rate and rhythm. No murmurs, rubs, or gallops. Peripheral pulses 2+ and symmetric. Respiratory: Clear to auscultation bilaterally. No wheezes, rales, or rhonchi. L abored respiratory effort. Abdomen: Soft, nontender, nondistended. No masses or organomegaly. Musculoskeletal: Paralysis from neck down, 0/5 strength in all extremities. Neurological: Parenthesis from neck down, no rectal tone, no cremaster reflex. C ranial nerves II-XII intact. NIHSS 18. Psychiatric: Calm, cooperative. Objective Labs 03/04/25 12:55 03/04/25 12:55 Labs: Laboratory Results - last 24 hr 03/04/25 04:50 WBC 11.5 H RBC 3.29 L Hgb 9.6 L Hct 29.6 L MCV 90 MCH 29.2 MCHC 32.4 RDW Std Deviation 40.8 Plt Count 359 D Neut % (Auto) 75 Lymph % (Auto) 15 [place] % (Auto) 9 Eos % (Auto) 0 Baso % (Auto) 0 Neut # (Auto) 8.7 H Lymph # (Auto) 1.7 [place] # (Auto) 1.0 H Eos # (Auto) 0.0 Baso # (Auto) 0.0 Immature Gran # (Auto) 0.09 H Absolute Nucleated RBC 0.00 Immature Gran % 1 H Nucleated RBC % 0 Sodium 138 Potassium 4.3 Chloride 103 Carbon Dioxide 24.4 Anion Gap 11 BUN 33 H Creatinine 1.8 H Estim Creat Clear Calc 29.7 L eGFR 39 L BUN/Creatinine Ratio 18 Glucose 148 H D Calculated Osmolality 285 Calcium 8.4 Corrected Calcium 8.5 Phosphorus 3.5 Magnesium 2.2 Total Bilirubin 0.3 AST 28 ALT 71 H Alkaline Phosphatase 269 H D Total Protein 7.1 Albumin 3.9 Globulin 3.2 Albumin/Globulin Ratio 1.2 ABG Interpretation ABG results: 02/25/25 09:17 VBG pH 7.36 VBG pCO2 47 VBG pO2 23 VBG Base Excess 1 Quality Measures Quality Measures none Advance care planning discussed with:: patient Assessment & Plan Assessment Current Active Medications: Generic Name Dose Route Start Last Admin Trade Name Freq PRN Reason Stop Dose Admin Acetaminophen 650 mg 02/25/25 23:47 03/02/25 03:56 Acetaminophen 325 Mg Tablet PO 03/27/25 23:46 650 mg Q6HR PRN Administration Fever > 100.4 or pain 1-3 Hydrocodone Bitart/Acetaminophen 1 tab 02/28/25 17:22 03/04/25 06:37 Hydrocodone/Apap 5/325 Tablet PO 03/05/25 17:21 1 tab Q6HR PRN Administration PAIN SCALE 4-10(Mod-Sev Amlodipine Besylate 5 mg 02/26/25 09:00 03/04/25 08:48 Amlodipine Besylate 5 Mg Tablet PO 03/28/25 08:59 5 mg QDAY LEATHA Administration Cyclobenzaprine HCl 5 mg 02/26/25 09:49 03/03/25 11:49 Cyclobenzaprine 5 Mg Tablet PO 03/28/25 09:48 5 mg TID PRN Administration MUSCLE SPASMS Dextrose 25 ml 02/25/25 12:11 Dextrose 50%-Water Inj 50 Ml Syringe IV 03/27/25 12:10 Q15MIN PRN BG 50-70 responsive npo pt Dextrose 50 ml 02/25/25 12:11 Dextrose 50%-Water Inj 50 Ml Syringe IV 03/27/25 12:10 Q15MIN PRN BG <50 OR BG <70 & pt unresponsive Docusate Sodium 100 mg 02/28/25 09:00 03/04/25 08:48 Docusate Sod 100 Mg Capsule PO 03/30/25 08:59 100 mg QDAY LEATHA Administration Protocol Gabapentin 300 mg 03/02/25 09:00 03/04/25 08:48 Gabapentin 300 Mg Capsule PO 04/01/25 08:59 300 mg QDAY LEATHA Administration Glucagon 1 mg 02/25/25 12:11 Glucagon Inj 1 Mg Vial IM Q15MIN PRN BG <70, and no IV access Heparin Sodium (Porcine) 5,000 unit 02/26/25 09:00 03/04/25 08:46 Heparin Sod Inj 5000 Unit/Ml Vial SC 03/12/25 08:59 5,000 unit BID LEATHA Administration Ceftriaxone Sodium 2 gm/ 50 mls @ 100 mls/hr 02/28/25 09:00 03/04/25 08:49 Sodium Chloride IV 03/07/25 08:59 100 mls/hr QDAY LEATHA Administration Insulin Degludec 20 unit 03/01/25 09:00 03/04/25 08:49 Insulin Degludec 5 Unit/0.05 Ml (Per 5 Units) SC 03/31/25 08:59 20 unit QDAY LEATHA Administration Insulin Human Lispro 0 unit 02/26/25 07:30 03/04/25 08:49 Insulin Lispro (Admelog) 1 Unit/0.01 Ml Unit SC 03/28/25 07:29 Not Given ACHS [facility] Protocol Labetalol HCl 10 mg 03/02/25 11:54 Labetalol Inj 5 Mg/Ml Vial 4 Ml IVP 04/01/25 11:53 Q12H PRN SBP > 180 or DBP > 110 Levothyroxine Sodium 50 mcg 02/26/25 06:00 03/04/25 06:37 Levothyroxine Sodium 25 Mcg Tablet PO 03/28/25 05:59 50 mcg ACBR LEATHA Administration Lidocaine 1 patch 02/26/25 09:50 02/26/25 18:19 Lidocaine 5% 1 Patch TOP 03/28/25 09:49 1 patch UD PRN Administration back pain Losartan Potassium 25 mg 03/02/25 12:00 03/04/25 08:48 Losartan Potassium 25 Mg Tablet PO 04/01/25 11:59 25 mg DAILY LEATHA Administration Metoprolol Succinate 50 mg 03/01/25 09:00 03/04/25 08:47 Metoprolol Succinate Xl 25 Mg Tabcr PO 03/31/25 08:59 50 mg QDAY LEATHA Administration Pantoprazole Sodium 40 mg 03/01/25 12:15 03/04/25 08:48 Pantoprazole 40 Mg Tablet PO 03/31/25 12:14 40 mg BID LEATHA Administration Tamsulosin HCl 0.4 mg 02/27/25 14:45 03/04/25 08:47 Tamsulosin Hcl 0.4 Mg Capsule PO 03/29/25 14:44 0.4 mg QDAY LEATHA Administration Plan 74 years old [place] spekaing male with history of hypothyroidism, hypertension, and diabetes type 2 who presented to ER on 02/25/25 for chest pain with radiation to the back and neck. He was admitted for chest pain. He was found to be 2/2 GPC+ bacteremia, currently receiving Rocephin with PICC line placed for outpatient antibiotics. On 03/04/25, patient was found to have paralysis and parenthesis from neck down, concerning for spinal cord injury/compression and neurogenic shock. #Neurogenic shock #Cervical spinal cord compression #Degenerative disc disease of cervical spine #Moderate thoracic spondylosis Findings noted on CT cervical spine on 02/28/25. Moderate to advanced degenerative disc disease C3-C4, C4-C5, C5-C6, C6-C7. Also noted on CXR 02/25/25. - outpatient follow up and management - lidocaine patch PRN - gabapentin 300mg PO QD - MMPR - 2L fluid bolus initated during rapid repsonse for neurogenic shock -> upgraded to ICU for intubation for airway protection and phenylephine. - MRI Cervical, thoracic, and lumbar ordered 03/03/25 due to worsening of neck pain/weakness. --> noted to have C3-4 and C5-6 spinal cord compression. Transfer to higher level of care initiated. --> RR called at 12:00 03/04/25. Please see event note. #MSSA Staph Aureus Bacteremia #Leukocytosis #Pyelonephritis - ruled out Blood cultures 2/2 GPC repeat as well GPC2/2 CXR negative for PNA Perinephric stranding noted on CT abdomen, with CVA tenderness Patient found to be retaining urine as well as hydronephrosis from prior imaging Vanc + Zosyn [02/25-02/27] - Bcx 02/25: Staph Aureus 2/2 - Bcx 02/26: GPC+ 2/2 -> Staph Aureus - Bcx 02/27: GPC+ 1/2 - Bcx 02/28: GPC+ 1/2 - Bcx 03/02: NGTD 48H --> plan to D/C with Rocephin 2g IV until 03/16/24. - Ucx -> No growth - Continue Ceftriaxone 2g [02/28- - PICC line inserted 03/03/25. - ID consulted, appreciate recs --> can d/c if Bcx negative with 2 weeks of IV rocephin 2g QD. - Cardiology consulted, appreciate recs -CT cervical w/ con --> no signs of infection, moderate DJD. #Hypertensive urgency-improving - Continue metoprolol succinate 50mg PO QD. - amlodipine 5mg qday - Hold home lorsartan in view of JULIO #ACS ruled out #Sinus tachycardia-resolved #Pulmonary embolism, small, bilateral lower lobes - ruled out Initial Troponin 0.025. EKG sinus tachy without ST abnormalities. CTA revealed bilateral small pulmonary embolic at lower lobes. US doppler LE negative for DVT. Cardiology does not think patient has PE after reviewing CTA Chest and physical examination, heparin discontinued per their recommendation. Repeat trop 0.024 #CKD IIIb #JULIO - ruled out #Left hydronephrosis, mild to moderate - ruled out Cr 1.8. BUN 32; ratio 17, wnl Patient possibly has underlying CKD IIIb Found to be retaining urine after voiding, around 600cc's - Renal US --> unremarkable, no hydronephrosis - Continue home lorsartan 25mg given hx of DM. - renal dose med, avoid nephrotoxin #Suspicious for 17 mm right lobe liver lesion #Transaminitis - downtrending Incidental finding on Chest CTA 02/25/25 - Transaminitis likely due to Rocephin - outpatient management and follow up Chronic problems: #Hypertenson #Insulin dependent Diabetes mellitus type2 #Hypothyroidism - amlodipine 5mg qday - metoprolol 50mg qday - losartan 25mg qday - levothyroxine 50mcg qday - Continue Insulin basal 20u qday - insulin sliding scale - hypoglycemia protocol Health maintenance Dispo: Higher level of care transfer for cervical spinal cord compression. DVT prophylaxis: HEPARIN GI prophylaxis: N/A Antibiotics: Ceftriaxone Bowel Regimen: Colace Diet: Carb consistent low Lines: Peripheral IV Code status: Full code Case discussed with my senior resident Dr. Albright Case discussed with my attending Dr. Manny Roach, DO PGY 1
--- NOTE | 2025-03-04 10:52 | PC.CC ---
Addendum entered by Norma Betancourt RN 03/04/25 16:42: quality assurance monitor chassis Debra faxed PCS form to dispatch Addendum entered by Norma Betancourt RN 03/04/25 16:35: 1633: called [facility], spoke to Halie, informed her to cancel request for transfer. 1625: Called and spoke to Jose dodge/ [facility], informed her to cancel request for transfer. 1624: Signed TBA faxed back to [facility]. Called and spoke to Katya, informed her about TBA and that [facility] is at bedside to transport by air. 1609: [facility] team arrived to unit. Transfer packets given to transport team. Report phone number and room number provided to bedside nurse danielle. 1603: [facility] called back and accepted the patient. ETA 10 min to bedside. DC Summary, 72hr med sheet, and RT notes added to both transfer packets. 1545: received call from Erika SOMMER for status update on transfer request, I informed her to cancel request as patient was accepted to [facility]. Addendum entered by Norma Betancourt RN 03/04/25 15:40: 1531: called [facility] for flight check. They will call back with status Addendum entered by Norma Betancourt RN 03/04/25 15:39: 1530: received call from Katya dodge/ [facility]. Pt is accepted going to room 1024. call report to [phone]. Dr. Garcia accepting. a 3rd CD created. Transfer packet w/ 3 cds given to JOSELITO Laurent. Addendum entered by Norma Betancourt RN 03/04/25 15:02: 1449: received call from Elva dodge/ [facility] to inform me that [facility] is at capacity in their ICU but will re-assess bed situation at 1900 today. I provided ICU direct line and Dr. Carmen's contact info. Transfer packet created w/ 2 CD's 1435: Katya spoke to Dr. Carmen, clinical update provided. Katya stated she will reach out to neurosurgery and call back. 1431: Katya dodge/ [facility] called back, transfer request initiated. 1422: Clinicals and images sent to [facility], spoke to Jyoti to try to initiate transfer request, she stated she will call me back. 1415: Jose w/ [facility] called to inform me that Dr. Brooks is unable to view images and ask for envelope patternmaker to deliver, informed we do not have a envelope patternmaker. She will keep case open. I informed her that I have reached out to other facilities. Addendum entered by Norma Betancourt RN 03/04/25 14:30: 1348: Elva w/ [facility] called back for clinical update. She requested for decision maker information. I will call her back with that information. I called ICU to get vent settings as I was told by the Dr. Albright that pt was being intubated earlier, i was informed pt is not intubated yet and they are waiting for family. I informed Elva that I would call her back with information she is requesting. 1346: called [facility], left requesting insurance auth for STAT transfer. 1342: called to provide clinical update, a nurse will call me back. Addendum entered by Norma Betancourt RN 03/04/25 13:32: 1328: received call from Lakisha dodge/ [facility], she informed me that [facility] is not delegated to pt's hospital's admissions or transfers. [facility] is delegated and she advised i reach out them. Addendum entered by Norma Betancourt RN 03/04/25 13:24: 1320: called [facility], spoke to Dori Rucker to request of auth. Clinical update provided on the need for transfer, he stated he will submit this request and someone twila Alston will call me back within 30 min. Addendum entered by Norma Betancourt RN 03/04/25 13:14: 1314: clinicals faxed to [facility] for review for insurance auth. Addendum entered by Norma Betancourt RN 03/04/25 13:12: 1303: spoke to Erika at [facility], she informed me that Dr. Carlin neurosurgeon is unable to view images. Unfortunately, no one avail to fix their radiology issue today d/t the holiday per Erika. She informed me that her helpdesk manager suggested we send the CD via envelope patternmaker, informed her we don't have one. Informed her I send the additional clinicals. She stated she will present the case as is. Addendum entered by Norma Betancourt RN 03/04/25 12:54: 1238: spoke to Erika at , she informed me pt's insurance is [place] and will need insurance auth. I informed her of the pt's change in condition and she also requested the event note and stroke w/u results. will send when available. 1234: spoke to Jose MATT, informed her of the pt's condition change. She states she will re-present when event note and stroke w/u results are avail. no results or note avail at this time. 1232: Received call from Dr. Albright to inform me that pt is now in the ICU and will be intubated for airway protection. Pt is altered, unable to move extremities. change transfer request to STAT. Per Dr. Albright, stroke w/u is negative so far and believes the change in condition is related to the cervical issues. Informed him to add an event note to document the change in condition. Addendum entered by Norma Betancourt RN 03/04/25 12:20: 1200: received call from Jose MATT. She stated Dr. Brooks Neurosurgeon reviewed clinicals and determined pt can f/u as outpatient after hospital discharge. Addendum entered by Norma Betancourt RN 03/04/25 11:32: 1127: clinicals and images sent to . Spoke to Erika at , she stated she will review the clinicals and present to neuro for determination since obtaining insurance auth maybe delayed d/t the holiday. Addendum entered by Norma Betancourt RN 03/04/25 11:06: 1100: called [employer] spoke to Kel. Need insurance auth to review. Once obtained, then they will review 1053: clinicals sent to [facility] for insurance auth. Addendum entered by Norma Betancourt RN 03/04/25 11:00: 1059: Erica Alvarado called back, declined patient d/t capacity. Addendum entered by Norma Betancourt RN 03/04/25 10:56: 1055: spoke to Erica dodge/ [facility], she stated she will check their capacity level and call back. Original Note: 1049: spoke to Jose dodge/ [facility], confirmed receipt of clinicals. She will review, present and call back. 1046: clinicals gathered, sent to GAVIN Al[facility], and [facility] and completed transmission. 1025: received transfer request for neurosurgery for severe cervical compression w/ weakness. 2 CD's created and images sent to Elissa and [facility].
--- NOTE | 2025-03-04 11:43 | XR_ITS ---
Examination: CT brain head without contrast. 2-D sagittal coronal reconstructions Date and time of exam: March 04, 2025, 12 noon INDICATIONS: Stroke alert onset focal neurologic deficit CTDI: vol (mGy): 53.1 DLP: (mGycm): 1101 Technique: Multiple CT axial sections of the brain have been obtained, 5 mm slice thickness. Contrast has not been administered. 2-D sagittal, coronal reconstructions have been obtained Low dose protocols were performed. One or more of the following dose reduction techniques were used; automated exposure control, adjustment of the mA and/or KV according to patient size, use of iterative reconstruction technique. Findings: No significant ventricular enlargement. Intra-axial or extra-axial hemorrhage density is not seen. No mass effect or midline shift Basal cisterns are not remarkable. Fourth ventricle is midline. Cranial vault intact. Impression: Negative for acute hemorrhage, mass effect or midline shift
[2025-03-04] MEDS: SODIUM CHLORIDE 0.9% 1000 ML 1,000 ML 999 ML IV ×2 (11:45→12:25)
--- NOTE | 2025-03-04 11:55 | XR_ITS ---
Examination: CTA carotids with intravenous contrast CTA brain, head with intravenous contrast. 2-D sagittal, coronal reconstructions. 3-D reconstructions. Exam date and time: March 04, 2025, 1205 hours CTDI: vol (mGy) 19.1 DLP: (mGycm) 4654 Technique: Multiple CTA axial brain, head carotid images post intravenous contrast injection 75 cc, [id number]. 2-D sagittal, coronal reconstructions. 3-D reconstructions, 3-D post processing including vascular maximum intensity projection images. Low dose protocols were performed. One or more of the following dose reduction techniques were used; automated exposure control, adjustment of the mA and/or KV according to patient size, use of iterative reconstruction technique. Findings: No significant common carotid carotid bifurcation or internal carotid artery stenoses Dominant left vertebral artery in the neck with no critical stenoses Intracranial vertebral arteries basilar artery posterior cerebral branches fill with no large vessel occlusions There are stenoses in the right posterior cerebral artery in the 50% range M1 segments middle cerebral arteries middle cerebral artery trifurcation vessels anterior cerebral arteries fill with no large vessel occlusions IMPRESSION: No significant neck arterial stenoses No cerebral large vessel arterial occlusions or thrombus
--- NOTE | 2025-03-04 11:59 | PC.SS ---
Rapid response initiated due to hypotension. Stroke alert initiated.
[2025-03-04 12:17] LABS: Lactate (Lactic Acid) 0.6 mMol/L (0.4-2.0)
[2025-03-04 12:19] LABS: Nucleated Red Blood Cell % 0 /100 WBC (0)
--- NOTE | 2025-03-04 12:35 | PD.RESEVENT ---
Documentation for date of: 03/04/25 Event Note Event Note: Around 12:00 PM Rapid Response was called for acute change in mental status. He was found significantly altered, hypotensive with MAP 52, with diffuse paralysis in all his extremities, unable to provide verbal response. Stroke alert was called with prelim head-CT negative. He was given 2L bolus with slight improvement in MAP but remains unresponsive. We have escalated antibiotics and transferred to ICU for intubation and airway protection. Given the severe acute change in neurological status and recent MRI spine findings of spinal compression, there is high suspicion for neurogenic shock. Order for transfer we initiated this AM for neurosurgery. Will escalate the transfer order to STAT. Pending further recommendation from neurology. Case was discussed with attending physician. Arron Albright, PGY II This document was transcribed using voice recognition technology. Minor inaccuracies may be present.
--- NOTE | 2025-03-04 12:41 | PC.SS ---
Update: Patient transitioned to ICU. Plan is to intubate patient.
--- NOTE | 2025-03-04 12:48 | ESCONSULT_ITS ---
Tele Neuro Consultation Consultation Date 03/04/25 Most Recent Vital Signs Last Vital Signs Temp 98.0 F 03/04/25 11:15 Pulse 72 03/04/25 11:15 Resp 23 H 03/04/25 11:15 BP 72/43 L 03/04/25 11:15 Pulse Ox 92 L 03/04/25 11:15 O2 Del Method Room Air 03/04/25 08:00 Laboratory-Coagulation Panel PT 11.4 Seconds (9.0-12.2) 02/27/25 04:35 INR 1.1 (0.9-1.3) 02/27/25 04:35 APTT 31.0 Seconds (22.0-36.0) D 02/27/25 04:35 Consultation Narrative [facility] Tele[facility]urology Consult [facility] Patient Name:???Shane Duncan Date of :???1950 Date of Service:???03/04/2025 11:47:16 Diagnosis:?I95.89 - Other hypotension ?R41.89 - Unresponsive Impression: ?74yoM hx of HTN, DM, hypothyroidism admitted initially for chest pain workup, found to have pyelonephritis. While inpatient he complained of neck pain and difficulty moving his arm. MRI C-spine showed cervical stenosis, pending neurosurgery eval. Today patient was found unresponsive, does not move extremities and is non-verbal. He was also hypotensive 79/[address] head neg for acute finding. Prelim read on CTA neg for LVO, report pending. On exam patient was awake, very soft speech, oriented to self, , location, age, not month. Able to identify objects. Unable to move extremities or feel his leg. Not a thrombolytics candidate due to suspect presentation is likely related to hypotension and LKW > 4.5hr window (patient been having difficulty using both arms for past 2-3 days per IM doctor). DDx includes hypotension, watershed infarct, related to cervical pathology. ? ?Recommendation ?- Stabilized BP and workup for cause of hypotension per primary. Inform IM physician that cervical injury can cause dysautonomia/labile BP. Unclear if that is the etiology at this time. ?- MRI brain w/o if not back to baseline ? Our recommendations are outlined below. Recommendations: ? Stroke/Telemetry Floor ? Neuro Checks ? Bedside Swallow Eval ? DVT Prophylaxis ? IV Fluids, Normal Saline ? Head of Bed 30 Degrees ? Euglycemia and Avoid Hyperthermia (PRN Acetaminophen) Advanced Imaging: CTA Head and Neck Completed. LVO:No Patient is not a candidate for MAUDE Metrics: Last Known Well: Unknown Activation Time: 03/04/2025 11:47:16 Initial Response Time: 03/04/2025 11:50:43Symptoms: unresponsiveness . Initial patient interaction: 03/04/2025 12:04:17 NIHSS Assessment Completed: 03/04/2025 12:11:34Patient is not a candidate for Thrombolytic. Thrombolytic Medical Decision: 03/04/2025 12:11:34Patient was not deemed candidate for Thrombolytic because of following reasons: LKW outside 4.5 hr window. . other diagnosis suspected Presentation likely related to hypotension (79/[address] After IVF patient was able to give verbal response. . CT Head: I personally reviewed all the CT images that were available to me and it showed: no acute finding Primary Provider Notified of Diagnostic Impression and Management Plan on: 03/04/2025 12:24:02 Spoke With: Dr. Roach Able to Reach 03/04/2025 12:24:02 History of Present Illness:Patient is a 74 year old Male. Inpatient stroke alert was called for symptoms of unresponsiveness . Patient initially presented on 02/25 for chest pain. CTA chest read as bilateral small PE and he was started on Heparin drip. Per cardiology consult note, chest pain mostly costcocondritis. Cardiology reviewed CTA chest and disagree with finding of PE. Heparin was discontinued. Patient was found to have UTI and was being treated for pyelonephritis. During hospitalization patient complained of neck pain. MRI dinh-spine showed C-spine with multilevel discogenic degenerative joint disease and significantly involving the cervical spine and lumbar spine with L5-S1 large 9mm central lumbar disc bulging indenting the ventral margin thecal sac. Per IM physician, pending neurosurgery consult/transfer. This morning at 8AM patient was awake and conversant. He was complaining of neck pain, has difficulty moving both arms, worse on the right. This has been going on for past 2-3 days, which was the initial reason for MRI. Later patient was found unresponsive, eyes open, does not move any extremities and nonverbal. Past Medical History: Other PMH:? HTN, DM, hypothyroiims Past Hospitalization:??[phone] Medications: Anticoagulant use:??Yes?heparin ppx No Antiplatelet use Reviewed EMR for current medications Allergies:? Reviewed,NKDA Social History: Drug Use: No Family History: There is no family history of premature cerebrovascular disease pertinent to this consultation ROS : 14 Points Review of Systems was performed and was negative except mentioned in HPI. Past Surgical History: There Is No Surgical History Contributory To Today?s Visit Examination: BP(89/50),?Pulse(60),?Blood Glucose(151) 1A: Level of Consciousness - Alert; keenly responsive?+ 0 1B: Ask Month and Age - 1 Question Right?+ 1 1C: Blink Eyes & Squeeze Hands - Performs Both Tasks?+ 0 2: Test Horizontal Extraocular Movements - Normal?+ 0 3: Test Visual Álvarez - No Visual Loss?+ 0 4: Test Facial Palsy (Use Grimace if Obtunded) - Normal symmetry?+ 0 5A: Test Left Arm Motor Drift - No Effort Against [place]?+ 3 5B: Test Right Arm Motor Drift - No Effort Against [place]?+ 3 6A: Test Left Leg Motor Drift - No Movement?+ 4 6B: Test Right Leg Motor Drift - No Movement?+ 4 7: Test Limb Ataxia (FNF/Heel-[place]) - Paralyzed?+ 0 8: Test Sensation - Complete Loss: Cannot Sense Being Touched At All?+ 2 9: Test Language/Aphasia - Normal; No aphasia?+ 0 10: Test Dysarthria - Mild-Moderate Dysarthria: Slurring but can be understood?+ 1 11: Test Extinction/Inattention - No abnormality?+ 0 NIHSS Score:?18 Pre-Morbid Modified [place] Scale: Unable to assess Spoke with :?Dr. Roach This consult was conducted in real time using interactive audio and video technology. Patient was informed of the technology being used for this visit and agreed to proceed. Patient located in hospital and provider located at home/office setting. Patient is being evaluated for possible acute neurologic impairment and high probability of imminent or life-threatening deterioration. I spent total of 35 minutes providing care to this patient, including time for face to face visit via telemedicine, review of medical records, imaging studies and discussion of findings with providers, the patient and/or family. Dr Irena Siddiqui [facility] For Inpatient follow-up with [facility] physician please call [facility] at . As we are not an outpatient service for any post hospital discharge needs please contact the hospital for assistance. If you have any questions for the [facility] physicians or need to reconsult for clinical or diagnostic changes please contact us via [facility] at . Non-radiologist review of imaging performed to assist with emergent clinical decision-making. Remote physician workstations do not possess the same resolution, calibration, or diagnostic capabilities as hospital-based radiology reading stations, and formal radiologist read is necessary. Signature :Michelle Siddiqui
--- NOTE | 2025-03-04 13:00 | PC.NURSE ---
RECEIVED REPORT FROM [facility]. PT RECENT TRANSFER FROM TELE STROKE ALERT. ON C COLLAR AND PENDING INTUBATION. RILEY TO BE STARTED FOR MAP >90
[2025-03-04] MEDS: PIPER/TAZO 3.375 GM PREMIX 3.375 GM/50 ML BAG IV (13:05)
[2025-03-04] MEDS: PHENYLEPHRINE HCL 40 MG in SODIUM CHLORIDE 0.9% 96 ML 4.875 MG IV (13:10)
[2025-03-04 13:16] LABS: Basophils # (Auto) 0.0 Thou/mm3 (0.0-0.2); Basophils % (Auto) 0 % (0-2.5); Eosinophils # (Auto) 0.0 Thou/mm3 (0.0-0.5); Eosinophils % (Auto) 0 % (0-10); Immature Granulocytes Auto 0.07 Thou/mm3 (0.00-0.00); Lymphocytes # (Auto) 0.8 Thou/mm3 (1.0-4.8); Lymphocytes % (Auto) 10 % (10-50); Mean Corpuscular HGB Conc 32.5 g/dl (31.0-37.0); Mean Corpuscular Hemoglobin 29.1 pg (25.0-35.0); Mean Corpuscular Volume 90 fL (80-100); Monocytes # (Auto) 0.5 Thou/mm3 (0.0-0.8); Monocytes % (Auto) 6 % (0-12); Neutrophils # (Auto) 6.6 Thou/mm3 (1.8-7.7); Neutrophils % (Auto) 83 % (37-80); Nucleated Red Blood Cell # 0.00 Thou/mm3 (0.00-0.00); Platelet Count 295 Thou/mm3 (140-440); RDW Standard Deviation 40.2 fL (35.1-43.9); Red Blood Count 2.85 Miln/mm3 (4.50-5.90); White Blood Count 8.0 Thou/mm3 (3.8-10.6)
--- NOTE | 2025-03-04 13:21 | PD.RESPROC ---
PROCEDURES: Procedure Date / Time 03/04/25 1321 Procedure Narrative Procedure Narrative: Attending Attestation: I was present for the entire procedure. No immediate complications. Minimal blood loss. Done without anesthesia as patient with no sensation or movement in the bilateral upper extremities. Patient tolerated procedure well. Arterial Line Indication(s): frequent arterial line sampling, hypoxic resp failure and shock Informed consent obtained: implied and procedure done urgently Time out done, and the following verified: correct patient, side and site, procedure, patient position and implants and/or equipment Size (Gauge): 20 Technique used: direct puncture technique Post-Procedure: line sutured into place and dry sterile dressing placed Patient tolerated procedure: well EBL(ml): 2 Complications: none Site: right and radial
[2025-03-04 13:25] LABS: Hematocrit 25.5 % (41.0-53.0); Hemoglobin 8.3 g/dL (13.5-16.0)
[2025-03-04 13:36] LABS: Alanine Aminotransferase 55 U/L (10-49); Albumin, Serum 2.9 gm/dL (3.4-4.8); Albumin/Globulin Ratio 1.1 (1.2-2.2); Alkaline Phosphatase 205 U/L (46-116); Anion Gap 7 (7-16); Aspartate Amino Transferase 22 U/L (0-34); BUN/Creatinine Ratio 22 Ratio (12-20); Bilirubin,Total 0.2 mg/dL (0.3-1.2); Blood Urea Nitrogen 35 mg/dL (9-23); Calcium 7.1 mg/dL (8.3-10.6); Calcium (Corrected) 8.0 mg/dL (8.5-10.1); Carbon Dioxide 22.0 mMol/L (20.0-31.0); Chloride 108 mMol/L (98-107); Creatinine (Component) 1.6 mg/dL (0.6-1.3); Estimated Creatinine Clearance 30.3 mL/min (>60); Globulin 2.6 gm/dL (2.3-3.5); Glucose 180 mg/dL (74-106); Osmolality,Calculated 286 (275-295); Potassium 4.3 mMol/L (3.4-5.1); Sodium 137 mMol/L (136-145); Total Protein 5.5 gm/dL (5.7-8.2); Troponin I < 0.020 ng/mL (0.0-0.045); eGFR 44 See Note
--- NOTE | 2025-03-04 14:36 | PC.NURSE ---
Prior to patient's change in condition the patient was noted to be alert and able to communicate well with staff . Following Rapid response, patient was taken to CT where a NIHSS was also preformed.
[2025-03-04] MEDS: VANCOMYCIN/WATER 1GM IVPB 200 ML IV (14:56)
[2025-03-04] MEDS: MIDAZOLAM INJ 1 MG/ML VIAL 2 ML 2 MG IVP (15:25)
[2025-03-04] MEDS: KETAMINE 50 MG/ML VIAL 10 ML 125 MG IVP (15:29)
[2025-03-04] MEDS: PROPOFOL 1,000 MG IVPB 1,000 MG/100 ML VIAL 7.801 MG IV (15:38)
[2025-03-04] MEDS: fentaNYL 2,500 MCG/250 ML BAG 2,500 MCG/250 ML BAG IV (15:38)
--- NOTE | 2025-03-04 15:38 | XR_ITS ---
EXAMINATION: AP chest single view TECHNIQUE: AP portable supine chest single view Date and time: March 04, 2025, 1535 hours, comparison February 25, 2025 INDICATIONS: Hypoxic respiratory failure post intubation, post orogastric tube placement FINDINGS: Endotracheal tube tip 4.2 cm above elias Orogastric tube in the stomach satisfactory position Right arm dual-lumen PICC line tip SVC Atelectasis versus pneumonia left base IMPRESSION: Atelectasis versus pneumonia left base
--- NOTE | 2025-03-04 15:40 | ESDS_ITS ---
<Statement entered by Ariana Bryant MD - 03/08/25 14:33> I reviewed above note and agree with findings and plans. I have also personally examined the patient with medicine team and went over assessment and plan with medical team including digital media intern and resident physician. <Statement entered by Arron Albright MD - 03/04/25 16:36> In summary: 74-year-old male with a history of hypertension and diabetes, was initially admitted on 02/25/25 for chest pain and GPC bacteremia, but his hospital course was complicated by progressive neurological decline. Despite initial stabilization of his infection with Rocephin, he developed worsening neck pain and bilateral upper extremity weakness, with a cervical MRI revealing severe spinal cord compression and stenosis from C3?C6. On 03/04/25, the patient suffered an acute onset of quadriplegia and neurogenic shock (SBP 70s), requiring ICU admission, vasopressor support via phenylephrine, and prophylactic intubation due to the high level of cord involvement. He is currently stabilized with a rigid collar and is being transferred to a higher level of care for emergent neurosurgical intervention. I?ve reviewed the note and agree with this assessment and plan, with the exceptions outlined above. I personally went over the labs, imaging, home medications, and prior records, and examined the patient. The case was also reviewed with the attending physician. Please note: this document was transcribed using voice recognition technology; minor inaccuracies may be present. Arron Albright DO PGY II Planned Discharge Date 03/04/25 DS: Providers Provider Date of admission: 02/25/25 12:00 Primary care physician: Physician No Primary/Family Admitting Provider: Olegario Moncada MD Attending Provider on Admission: Ariana Bryant MD Consults: 02/25/25 12:06 Consult to Cardiology Stat Comment: Consulting Provider: Manas Knight 02/28/25 10:32 Consult to Infectious Diseases Routine Comment: Peristent Bactermia GPC sensitive to CTX Consulting Provider: Antony Everett 03/04/25 10:25 Referral - Classified Ad Clerk Routine Service Needed for Transfer: Neurosurgery Addl Comments:: Severe cervical compression with weakness Attending Provider on DC: Ariana Bryant MD Discharging Provider: Ubaldo Roach DO Anticipated date of discharge: 03/04/25 DS: Diagnosis Problem List Completed Was Problem List Reviewed/Reconciled?: Yes Hospital Course Hospital Course Hospital course: Mr. Duncan is a 74 years old malaysian spekaing male with history of hypothyroidism, hypertension, and diabetes type 2 who presented to ER on 02/25/25 for chest pain with radiation to the back and neck. Patient stated on the morning of 02/23/25, he woke up with constant, pressure like, chest pain that was centrally located with radiation to his back and neck. This pain was made worse with deep inspiration. He had never experienced similar episode before. He informed his chest pain to his son, who took him to a clinic for check up the day after on 02/24/25. He reported he was given some medications from the clinic with minimal improvement of his chest pain, who prompted him to seek care in the ER today on 02/25/25. He denied any fever, nausea, chill, vomiting, cough, dysuria. He does not take any hormone pill. No recent long travel or history of TIA/stroke, or clot in the lung or legs. No unilateral leg swelling or hemoptysis. He was admitted for chest pain workup on 02/25/25. In the ED, Temp 100.3F rectal. HR 106. RR 14. BP 176/97. 100% RA. Lab significant for WBC 24.4 with neutrophil predominance. A1c 9.4. Lactate 2.1. CXR unremarkable. EKG showed sinus tach at rate of 116. No acute ST abnormalities. His troponin level was < 0.020. Chest CTA in the ED read as positive for small bilateral lower lobe pulmonary artery emboli. He was started on heparin drip per PE protocol. Given that patient was also complaining of tearing chest pain , an abdomen US was also ordered, and was negative for AAA. Venous US of LE was also negative for any DVT. On day 1 of admission, cardiology was consulted for PE. After their interpretation of the Chest CTA, they concluded that patient did not have a PE, and suggested discontinuing heparin drip. His Bcx grew GPC+ for 2/2 bottles, and his antibiotic regimen was de-escalated from vancomycin and zosyn to rocephin. Patient continued to have positive blood cultures until 03/02/25, when both bottles of Bcx came back negative for any bacteria. Infectious disease was consulted, and recommended patient to be discharged with a PICC line for IV Rocephin until 03/16/24. On 02/28/25, given patient's complaint of neck pain that did not resolve with pain medications, a cervical spine CT was performed. It was noted that patient has moderate to advanced degenerative disc disease C3-C4, C4-C5, C5-C6, C6-C7. Over the course of the next few days, his complains of neck pain had progressed to right shoulder pain and eventually bilateral upper extremity weakness (worse on the right) with sensation intact. On 03/03/25, patient reported worsening of weakness to his right arm that was worse with neck movement. He denied any sensory change at that time. A MRI with contrast for cervical, thoracic, and lumbar were ordered to evaluate for radiculopathy. MRI cervical spine revealed C3-4 extrinsic compression on the spinal cord, C4-C5 significant posterior disc protrusion with spinal cord stenosis, and C5-6 significant DJD with disc bulging compressing the spinal cord. On 03/04/25, patient was seen and examined at bedside. He had a soft c-collar in place, and was talking and ambulatory, however, now complained of numbness on bilateral UE on top of the weakness he experienced yesterday. A transfer to high level of care for neurosurgery was initiated at that time. At approximately 12:35 AM on 03/04/25, a rapid response was called for acute hypotension. Upon initial assessment, patient was found hypotensive with SBP of mid 70s. He was laying flat in bed with chief complaint of paralysis and parenthesis from neck down. Given his symptoms are acute onset, a stroke alert was initiated. 1L bolus was given with pressure bag. Patient was brought down to the CT scanner with spinal precaution in place. Tele-neurologist reviewed the initial CT head, and did not think his symptoms were due to stroke, likely 2/2 to hypotension. Patient was then taken up to ICU where a rigid collar was applied. He was started on phenylephine drip to support his blood pressure. An a-line placed for close blood pressure monitoring. Family updated at bedside regarding patient's current clinical status and I had a [id number] discussion with them regarding the need for transfer to higher level of care for neurosurgery evaluation. Given patient's acute onset of paralysis and parenthesis from neck down, the ICU and hospitalist team were worried about his airway as he had a spinal cord compression at the level of C3-4. Please see physical exam below for neurological findings. The need for intubation was discussed with patient with a product craftsman and nurse at bedside, patient is agreeable and stated to do anything necessary to stabilize him for transfer. All questions and concerns addressed, and patient himself nor the family members had any further question at this point. Patient is now under care of the ICU team, and soon to be transferred to [facility]. Diagnosis: #Neurogenic shock #Cervical spinal cord compression #Degenerative disc disease of cervical spine #Moderate thoracic spondylosis #MSSA Staph Aureus Bacteremia #Leukocytosis #Pyelonephritis - ruled out #Hypertensive urgency - resolved #ACS ruled out #Sinus tachycardia-resolved #Pulmonary embolism, small, bilateral lower lobes - ruled out #CKD IIIb #JULIO - ruled out #Left hydronephrosis, mild to moderate - ruled out #Suspicious for 17 mm right lobe liver lesion #Transaminitis - resolved #Hypertenson #Insulin dependent Diabetes mellitus type2 #Hypothyroidism Discharge Plan: Transfer to [facility] Case discussed with my senior resident Dr. Albright Case discussed with my attending Dr. Manny Roach DO PGY 1 Status at Discharge Overall status at discharge: patient is not back to baseline Time Spent with Patient Time attestation: Total time spent providing and/or coordinating discharge services: Time spent: Greater than 30 minutes Home Health Home Health Referral Orders: 03/04/25 09:46 Home Health Referral Routine Reason For Exam: IV antibiotics Home-Bound The patient must either because of illness or injury, need the aid of supportive devices such as crutches, canes, wheelchairs, and walkers; the use of special transportation; or the assistance of another person in order to leave their place of residence; OR have a condition such that leaving his or her home is medically contraindicated. In addition, the patient also meets the following criteria: patient is normally unable to leave the home and leaving home requires considerable taxing effort. Addendum to Home Health Certification Practitioner's Certification: I certify that the patient has been under my care in the hospital and the care of attending physician (see below). We had a [id number] encounter on (see date below). My clinical findings indicate that the patient is home bound per the above criteria and the Home Health Services noted in these orders are medically necessary. The primary reason for the [id number] encounter is related to the fact that the patient requires home health services. Date Certifying Vuoi-xe-Ykxy Physician Encounter: 02/25/25 Physician's Name who will Assume Oversight for HH Services: Physician No Primary/Family [facility] [place] [facility] Resources: No PT to Evaluate: No PT to evaluate and provide a treatmnet plan to increase patient's mobility and strength. Wound Care: No IV Therapy: Yes IV Medication: rocphin IV Dose: 2gram IV Frequency: daily IV Stop Date: 03/16/25 Discontinue PICC Line Once Treatment Complete: Yes RN Safety Evaluation: Yes RN to evaluate and create a plan of care that will produce positive outcomes. Palliative Treatment: No Palliative treatment and evaluate the need for hospice. Home Health Aide - Personal Care: No Home Health Aide to assist with any ADL's. Exam Vital Signs Temp Pulse Resp BP Pulse Ox O2 Del Method FiO2 98.0 F 66 23 H 72/43 L 92 L Room Air 100 03/04/25 11:15 03/04/25 14:27 03/04/25 14:27 03/04/25 14:27 03/04/25 11:15 03/04/25 08:00 03/04/25 15:35 Narrative Exam General: Soft spoken, hypotensive, diaphoretic at the face. He is alert, but does not know his location. HEENT: Normocephalic, atraumatic. Pupils equal, round, and reactive to light. Extraocular movements intact. Oropharynx clear, no lesions or erythema. Neck: Supple, no JVD, no lymphadenopathy. Rigid collar in place with spinal precaution. Cardiovascular: Regular rate and rhythm. No murmurs, rubs, or gallops. Peripheral pulses 2+ and symmetric. Respiratory: Clear to auscultation bilaterally. No wheezes, rales, or rhonchi. Labored respiratory effort. Abdomen: Soft, nontender, nondistended. No masses or organomegaly. Musculoskeletal: Paralysis from neck down, 0/5 strength in all extremities. Neurological: Parenthesis from neck down, no rectal tone, no cremaster reflex. Cranial nerves II-XII intact. NIHSS 18. Psychiatric: Calm, cooperative. Discharge Plan Plan Patient Disposition: Xfer Other Facility Pt Being Transferred to: [facility] Patient condition on transfer: Stable Care Plan Goals: * Follow up with primary care physician within 1 week of discharge * Instructions have been explained to the patient with regards to their med ications and how to take them. Patient was able to explain back to physician and nursing staff how to take their medications. Patient expressed understanding with instructions. * You need to see an orthopedic doctor and may need pain management or physical therapy for spinal stenosis. Please ask your PCP for referral. * Follow-up with PCP regarding incidental 17 mm right lobe liver lesion see on CTA. Although abdominal US and abdominal CT did not demonstrate presence of this lesion. There was, however, fatty-liver infiltrates. Please discuss with your PCP. * Follow-up with nephrology (kidney doctor) regarding possible chronic kidney disease. Please ask you PCP for referral to nephrology. * Continue using CEFTRIAXONE 2 mg daily until March 16, 2024. Continue to take the rest of your medications as prescribed by your primary care physician. Patient has been explained that should any symptoms recur or worsen patient is instructed to return to the Emergency Department. Prescriptions/Referrals Prescriptions/Med Rec: Continued ibuprofen 600 mg tablet 600 mg PO Q6H Qty: 30 0RF amlodipine 5 mg tablet 5 mg PO QDAY levothyroxine 50 mcg tablet 50 mcg PO DAILY losartan 25 mg tablet 25 mg PO DAILY hydrochlorothiazide 25 mg tablet 25 mg PO DAILY Janumet 50-500 mg tablet 1 tab PO DAILY UD insulin glargine [Lantus Solostar U-100 Insulin] 100 unit/mL (3 mL) insulin pen 20 unit SUBCUT HS Referrals: No Primary/Family,Physician [Primary Care Provider] Patient/Caregiver Discharge Instructions Print Language: Slovenian Stand Alone Forms: [employer] Award Info., Patient Portal Info Letter Discharge Order Discharge Orders: Discharge (Routine); Ordered 03/04/25 Ordered By: Arron Albright Quality Discharge Quality Measures VTE prophylaxis
--- NOTE | 2025-03-04 15:47 | ESOP_ITS ---
PROCEDURES: Procedure Date / Time 03/04/25 1536 Procedure Narrative Procedure Narrative: Attending Attestation: I was present for the entire procedure. No immediate complications. Two attempts with VL by resident. C-collar was released on second attempt with head/ neck stabilized to avoid hyperextension by second provider. Cricoid pressure applied with successful intubation. C-collar and ETT secured in position. Patient desaturated into 80s and easily bagged back into 90s between attempts. Hemodynamically stable throughout. Ketamine sequentially used to achieve adequate anesthesia. No paralytic required. Intubation Indication(s): inability to protect airway Informed consent obtained: from patient and obtained from surrogate decision maker Time out done, and the following verified: correct patient, side and site, procedure, patient position and implants and/or equipment Sedative: versed Mg given: 2 Sedative #2: ketamine Mg Given (sedative #2): 125 Laryngoscope: fiber optic video scope Assist device used: fiber optic device ET tube size: 7.5 ET tube uncuffed: Yes Tube secured depth (cm): 24 Tube secured location: lips Tube placement confirmation: visualized tube passing through cords, equal breath sounds bilaterally, no breath sounds over epigastrium and confirmation by c apnometry Patient tolerated procedure: well EBL(ml): 0 Intubation complications: none Additional comments: ----- Plan discussed with attending physician Dr. Kermit Salguero MD PGY-1 Internal Medicine
--- NOTE | 2025-03-04 16:32 | PC.NURSE ---
REPORT GIVEN TO JUDSON AND SE[facility]ANG[facility] FLIGHT PERSONNEL. SEDATION DRIP TURNED OFF AND WASTED. PHENY DRIP SENT WITH [facility]. LAST VITAL SIGNS STABLE AND PT IN NO SIGNS OF DISTRESS.
--- NOTE | 2025-03-04 16:40 | PC.NURSE ---
FAMILY NOTIFIED OF PT BEING TRANSFERRED TO [facility] ICU AT [facility]. ADRESS AND AND ROOM NUMBER PROVIDED TO ARTI HUGHES [employer] TANSFERRED TO ARTI.
--- NOTE | 2025-03-04 17:05 | PC.NURSE ---
REPORT GIVEN TO JOAQUIN RN FROM [facility] NEURO ICU. GIVEN ETA OF 1730 BY REACH FLIGHT. PT STABLE AND IS ON A C RIGID COLLAR. NO FURTHER QUESTIONS.
--- NOTE | 2025-03-04 18:21 | PD.RESEVENT ---
Documentation for date of: 03/04/25 Event Note Event Note: Mr. Duncan is a 74 year old gentleman who was upgraded to the ICU given concern for cervical cord compression in the setting of BUE paralysis and concern for cord compression affecting the phrenic nerve. Patient was intubated, (see procedure note). Transfer had been initiated by primary team for neurosurgery. Once airway was secured, patient was subsequently transferred via helecopter to [facility]. Case disclosed with my Attending Dr. Kermit Gupta MD PGY1
== END 2025-03-04 16:32 | disposition other institution (70) | DRG 134 ==
LOC: SERX 11:32 → SERHOLD 12:24 → S2NX 16:36 → S3NX 03-02 22:38 → S2SX 03-04 12:18
PROVIDERS: Internal Medicine Infectious Disease; Nurse Practitioner Primary Care; Admitting Provider Student in an Organized Health Care Education/Training Program; Emergency Provider Family Medicine; Visit Provider Internal Medicine Critical Care Medicine
DX: I26.99 Other pulmonary embolism without acute cor pulmonale (principal); E03.9 Hypothyroidism, unspecified; E11.9 Type 2 diabetes mellitus without complications; R57.8 Other shock; J96.91 Respiratory failure, unspecified with hypoxia; I12.9 Hypertensive chronic kidney disease with stage 1 through stage 4 chronic kidney disease, or unspecified chronic kidney disease; E11.22 Type 2 diabetes mellitus with diabetic chronic kidney disease; I16.0 Hypertensive urgency; M47.14 Other spondylosis with myelopathy, thoracic region; M50.022 Cervical disc disorder at C5-C6 level with myelopathy; N17.9 Acute kidney failure, unspecified; N18.32 Chronic kidney disease, stage 3b; N13.6 Pyonephrosis; R78.81 Bacteremia; K76.9 Liver disease, unspecified; Z79.84 Long term (current) use of oral hypoglycemic drugs; Z79.890 Hormone replacement therapy; M50.01 Cervical disc disorder with myelopathy, high cervical region; Z79.4 Long term (current) use of insulin; B95.61 Methicillin susceptible Staphylococcus aureus infection as the cause of diseases classified elsewhere
CPT/HCPCS: 36415; 70450; 70496; 70498; 71046; 71275; 72126; 72142; 72147; 72149; 74150; 76700; 76770; 80053; 80202; 81001; 82803; 83036; 83605; 83690; 83735; 83880; 84100; 84145; 84484; 85025; 85610; 85730; 86703; 86803; 86850; 86900; 86901; 87040; 87077; 87086; 87186; 87205; 87502; 87651; 93005; 93225; 93306; 93970; 94002; 94644; 96361; 96365; 96366; 99284; A4649; A9577; C1894; J0131; J0360; J0456; J0696; J1644; J1815; J1885; J1920; J2250; J2371; J2543; J2704; J3010; J3373; J3374; J3375; J3475; J3490; J7030; J7050; J7120; J7999; Q9967; A9270